=== PATIENT | male | born 1955 | race Caucasian/White ===

== ENCOUNTER 2021-10-21 13:05 | Inpatient (IN) | payer OTHER, SELFPAY ==
--- NOTE | ~2021-10-21 | CT_ITS ---
EXAMINATION: CT ANGIOGRAM HEAD CT ANGIOGRAM NECK CLINICAL INFORMATION: Reason for Exam bilat hand numbness, L arm weakness COMPARISON: None. TECHNIQUE: Initial noncontrast market maker imaging of the head and neck was performed. Noncontrast head CT was also performed. Test bolus sequences followed by intravenous administration 70 mL of Omnipaque 350. Helical imaging was performed in the axial plane from the aortic arch to the skull vertex. Delayed postcontrast imaging of the head was also performed. The data was processed at the nuclear medicine chief technologist's workstation for generation of MIP sequences. Angled MIPs and volume rendered reformatted images were also generated at an offline 3D workstation. Stenoses are assessed in accordance with NASCET criteria unless otherwise indicated. DLP: 2420 mGy-cm This CT examination was performed using dose optimization techniques as appropriate, variously including the following: *Automated exposure control. *Adjustment of mA and/or kV according to patient size (this includes techniques or standardized protocols for targeted exams where dose is matched to indication/reason for exam; i.e. extremities or head). *Use of iterative reconstruction technique. FINDINGS: CT Head: There is no evidence of acute intracranial hemorrhage or edematous territorial infarction. A few foci of hypoattenuation in the periventricular and deep white matter are consistent with mild microangiopathy. Roy-white matter differentiation is preserved. Slightly asymmetric caliber of the lateral ventricles, likely on a congenital basis. No evidence for obstructive hydrocephalus. No abnormal mass effect or midline shift. No extra-axial fluid collections. No pathologic intra-axial enhancement or regional oligemia. No acute soft tissue or osseous abnormalities. The mastoid air cells and paranasal sinuses are clear. Anterior frontal scalp lipoma. CT Neck: The thyroid gland and remaining cervical soft tissues are within normal limits. Multilevel moderate to advanced cervical spondylosis is incompletely evaluated by CT. Disc osteophyte complex at C5-C6 results in at least moderate spinal canal stenosis. CT Upper Chest: The visualized lung apices and upper mediastinum are within normal limits. Neck CTA: Aortic Arch: Normal contour and caliber. Classic 3 vessel branching pattern of the aortic arch. Great Vessel Origins: No significant stenosis of the branch origins. Evaluation of the proximal branches is somewhat limited due to streak artifact. Right Common Carotid Artery: No focal stenosis or occlusion. Cervical Right Internal Carotid Artery: Mild calcific atherosclerotic disease of the carotid bulb and proximal internal carotid artery without flow-limiting stenosis. Left Common Carotid Artery: No focal stenosis or occlusion. Cervical Left Internal Carotid Artery: Mild calcific atherosclerotic disease of the carotid bulb and proximal internal carotid artery without flow-limiting stenosis. Cervical Right Vertebral Artery: No focal stenosis or occlusion. Cervical Left Vertebral Artery: Slightly dominant. The vessel origin is not well visualized due to streak artifact. No focal stenosis or occlusion. Brain CTA: Intracranial Internal Carotid Arteries: Calcific atherosclerotic disease of the intracranial internal carotid arteries without occlusion or flow-limiting stenosis. Right Anterior Cerebral Artery: Normal A1 segment. Normal opacification of the distal NATI segments. Left Anterior Cerebral Artery: Normal A1 segment. Normal opacification of the distal NATI segments. Anterior Communicating Artery: Normal. Right Middle Cerebral Artery: Normal M1 segment of the MCA without focal stenosis or occlusion. Normal arborization of the distal segments. Left Middle Cerebral Artery: Normal M1 segment of the MCA without focal stenosis or occlusion. Normal arborization of the distal segments. Right Vertebral Artery: Normal V4 segment. Left Vertebral Artery: Normal V4 segment. Basilar Artery: Normal without focal stenosis or occlusion. Normal appearance of the proximal superior cerebellar arteries. Right Posterior Cerebral Artery: Normal P1 segment. Normal opacification of the distal HEREDITARY CANCER PROGRAM COORDINATOR segments. Left Posterior Cerebral Artery: Normal P1 segment. Normal opacification of the distal HEREDITARY [employer]CER PROGRAM COORDINATOR segments. Normal opacification of the superior sagittal, straight, transverse, and sigmoid sinuses. CT/CT angio head neck IMPRESSION: 1. No acute intracranial abnormality including hemorrhage, mass effect, hydrocephalus, or acute territorial edematous infarction. 2. No arterial high grade stenosis or large vessel occlusion in the head or neck.
--- NOTE | ~2021-10-21 | MR_ITS ---
MRI OF THE BRAIN WITHOUT IV CONTRAST MRI OF THE CERVICAL SPINE WITHOUT IV CONTRAST INDICATION: Paresthesias. COMPARISON: None available. TECHNIQUE: Multiplanar multisequence MR imaging of the brain and cervical spine obtained without IV contrast. FINDINGS: BRAIN MRI: There is no hydrocephalus, extra-axial surface collection, or herniation. Mild to moderate T2 signal changes within the supratentorial white matter, possibly chronic microangiopathy though nonspecific. The sequelae of demyelinating disease could have a similar appearance. The major flow voids at the skull base are preserved. There is no acute infarct on diffusion-weighted imaging. There is no intracranial hemorrhage on the gradient recalled echo acquisition. The midline structures are normal. The cerebellar tonsils are normally positioned. The cerebellum and brainstem are normal. The craniocervical junction is normal. Osseous marrow signal intensity is homogenous. There is a simple appearing 3 cm anterior frontal scalp lipoma. CERVICAL SPINE MRI: Straightening of the cervical lordosis. Vertebral body heights are maintained. Moderate disc volume loss at C3-C4 and C5-C6. There is no bone marrow edema. There are no acute fractures. Cervical arterial flow voids are maintained. There are no significant extraspinal soft tissue findings. There are no cord signal changes. C2-C3: Disc osteophyte and ligamentum flavum thickening result in mild central canal stenosis. Advanced uncovertebral joint hypertrophy and hypertrophic facet arthropathy result in severe left and moderate right foraminal stenosis. C3-C4: Disc osteophyte and ligamentum flavum thickening result in flattening of the cervical cord and moderate central canal stenosis. Advanced uncovertebral joint hypertrophy and hypertrophic facet arthropathy result in severe bilateral foraminal stenosis. C4-C5: Disc osteophyte and ligamentum flavum thickening result in severe central canal stenosis and mass effect on the cord. Advanced uncovertebral joint hypertrophy and hypertrophic facet arthropathy result in severe bilateral foraminal stenosis. C5-C6: Retrosubluxation. Disc osteophyte and ligamentum flavum thickening result in severe central canal stenosis and mass effect on the cord. Advanced uncovertebral joint hypertrophy and hypertrophic facet arthropathy result in severe bilateral foraminal stenosis. C6-C7: Shallow central disc protrusion mildly narrows the central canal. Advanced uncovertebral joint hypertrophy and hypertrophic facet arthropathy result in severe left and moderate right foraminal stenosis. C7-T1: Posterior disc contour is normal. Disc osteophyte and facet arthropathy result in moderate to severe right and moderate left foraminal stenosis. MR/MR cervical spine wo con IMPRESSION: - No acute intracranial findings. Mild to moderate T2 signal changes within the supratentorial white matter, possibly chronic microangiopathy though nonspecific. The sequelae of demyelinating disease could have a similar appearance. There is a simple appearing 3 cm anterior frontal scalp lipoma. - Advanced cervical spondylosis. Advanced spondylitic changes result in severe central canal stenosis and mass effect on the cervical spinal cord at C4-C5 and C5-C6 as well as moderate central canal stenosis and more mild mass effect on the cervical spinal cord at C3-C4. No definite cord signal changes however assessment is limited by the degree of artifact. Advanced spondylitic changes result in severe multilevel foraminal stenosis throughout the cervical spine as discussed in detail above.
[2021-10-21 13:24] VITALS: BP 117/87; PULSE 68; RESP 18; TEMP 36.6; O2SAT 97; BMI 40.6
--- NOTE | 2021-10-21 14:17 | ED.GENADULT ---
HPI - General Adult General Chief complaint: General Medical Stated complaint: Arm numbness/Leg numbness Time Seen by Provider: 10/21/21 13:51 Source: patient Mode of arrival: ambulatory Limitations: no limitations PMFSH Social History Social History Advance Directives: Yes Advance Directives Information Provided: Yes Advance Directives on File: No Physical Exam ED Vital Signs: Vital Signs - 24 hr 10/21/21 13:24 Temperature 97.8 F Pulse Rate 68 Respiratory Rate 18 Blood Pressure 117/87 Pulse Oximetry 97 Oxygen Delivery Method Room Air BMI result Body Mass Index 40.6
--- NOTE | 2021-10-21 14:27 | ECG_ITS ---
Test Reason : NUMBNESS EXTREMITIES Blood Pressure : / mmHG Vent. Rate : 059 BPM Atrial Rate : 059 BPM P-R Int : 174 ms QRS Dur : 096 ms QT Int : 424 ms P-R-T Axes : 029 015 021 degrees QTc Int : 419 ms Sinus bradycardia with sinus arrhythmia Otherwise normal ECG No previous ECGs available Referred By: Paula Lyons Electronically Signed By:NOE SU
--- NOTE | 2021-10-21 14:28 | ED.GENADULT ---
HPI - General Adult General Chief complaint: General Medical Stated complaint: Arm numbness/Leg numbness Time Seen by Provider: 10/21/21 13:51 Source: patient Mode of arrival: ambulatory Limitations: no limitations History of Present Illness HPI narrative: Patient comes to the emergency room complaining of bilateral hand numbness, left arm weakness, and soreness, pain in lower extremities, multiple near falls and falls over last week. Patient states that approximately 2 weeks ago, patient was helping his daughter paint the ceiling, suddenly, his arms went numb. Patient states that 4 days later he went to an emergency room in [place], he was diagnosed with cervical radiculopathy. Patient was prescribed steroids. Patient states that he has been taking his medication but his symptoms are not improving. Patient states that if anything the weakness in the left hand got a bit worse Related Data Allergies Allergy/AdvReac Type Severity Reaction Status Date / Time No Known Allergies Allergy Verified 10/21/21 14:26 Review of Systems Review of Systems: Constitutional : No Weight loss, No Fever, No Chills, No Night Sweats, No Fatigue, No Malaise ENT/Mouth : No Hearing loss, No Ear Pain, No Nasal Congestion, No Sinus Pain, No Hoarseness, No sore throat, No Rhinorrhea, No Swallowing Difficulty Eyes: No Eye Pain, No Swelling, No Redness, No Foreign Body, No Discharge, No Vision Changes Cardiovascular : No Chest Pain, No SOB, No Dyspnea on Exertion, No Orthopnea, No Edema, No Palpitations Respiratory : No Cough, No Sputum, No Wheezing, No Smoke Exposure, No Dyspnea Gastrointestinal : No Nausea, No Vomiting, No Diarrhea, No Constipation, No abdominal Pain, No Hematochezia, No Melena Genitourinary : no irregular bleeding, No Dysuria, No Urinary Frequency, No Hematuria, No Urinary Incontinence, No Urgency, No Flank Pain, No Urinary Flow Changes, No Hesitancy Musculoskeletal : Complaining of weakness in the left arm, complaining of bilateral a weakness/soreness in both lower extremities, complaining of bilateral hand numbness, no tingling Skin : No Skin Lesions, No rash Neuro : No Weakness, no loss of consciousness, no Dizziness, No Headache Psych : No Anxiety/Panic, No Depression, No SI/HI/AH/VH, No Social Issues, Heme/Lymph: No Bruising, No Bleeding,No Lymphadenopathy Endocrine : No Polyuria, No Polydipsia, No Temperature Intolerance [facility] Social History Social History Advance Directives: Yes Advance Directives Information Provided: Yes Advance Directives on File: No Physical Exam ED Vital Signs: Vital Signs - 24 hr 10/21/21 13:24 10/21/21 17:00 Temperature 97.8 F Pulse Rate 68 61 Respiratory Rate 18 16 Blood Pressure 117/87 154/74 H Pulse Oximetry 97 96 Oxygen Delivery Method Room Air Room Air BMI result Body Mass Index 40.6 Const Other: Appearance: Alert. Oriented X3. No acute distress. Eyes: Pupils equal, round and reactive to light. ENT: Pharynx normal. Neck: Normal inspection. Neck supple. No lymph nodes noted. No crepitus CVS: Normal heart rate and rhythm. Pulses normal. Normal S1 and S2 Respiratory: No respiratory distress. Breath sounds normal. No Wheezing. No rales Abdomen: Soft and nontender. No rigidity. No distention. Skin: Skin warm and dry. Normal skin color. Normal skin turgor. Extremities: No lower extremity edema. In upper extremities, right arm strength 5/5, left arm 2/5. Patient has 4/5 strength bilaterally, states both of his legs are feeling soared Neuro: Oriented X 3. No motor deficit. No sensory deficit. Moving all extremities. No slurred speech. CN 2 through 12 grossly intact Psych: calm, cooperative, normal affect Course Course Course Narrative: Patient does not have any significant abnormalities in the blood work. Head CT and CTA pending. I discussed the patient with Dr. Bolton, patient being admitted. He will need an MRI in the morning Medical Decision Making Lab Data Result diagrams: 10/21/21 15:08 10/21/21 15:08 Labs: Lab Results 10/21/21 10/21/21 10/21/21 Range/Units 15:07 15:08 15:08 WBC 9.4 (4.8-10.8) X10*3/uL RBC 5.23 (4.60-5.80) X10*6/uL Hgb 16.3 (14.0-18.0) g/dl Hct 48.0 (42.0-52.0) % MCV 91.8 (80.0-98.0) fL MCH 31.2 (27.0-33.0) pg MCHC 34.0 (31.0-36.0) g/dl RDW 12.8 (11.0-16.0) % Plt Count 218 (160-400) X10*3/uL MPV 9.3 L (9.4-12.4) fL Immature Gran % (Auto) 0.6 H (0.0-0.4) % Neut % (Auto) 67.3 (45-73) % Lymph % (Auto) 19.5 L (20-40) % [place] % (Auto) 9.6 (2-11) % Eos % (Auto) 2.7 (0-4) % Baso % (Auto) 0.3 (0-2) % Lymph # (Auto) 1.8 (1.2-4.9) X10*3/uL [place] # (Auto) 0.9 (0.1-1.2) X10*3/uL Eos # (Auto) 0.3 (0.0-0.4) X10*3/uL Baso # (Auto) 0.0 (0.0-0.2) X10*3/uL Abs Immat Gran (auto) 0.06 H (0.00-0.03) X10*3/uL Absolute Neuts (auto) 6.3 (2.0-8.3) x10*3/uL Absolute Nucleated RBC 0.000 (0.0-0.012) X10*3/uL Nucleated RBC % (auto) 0.0 (0.0-0.2) /100WBC Sodium 139 (135-145) mmol/L Potassium 4.9 (3.3-5.1) mmol/L Chloride 105 (96-108) mmol/L Carbon Dioxide 25 (22-29) mmol/L Anion Gap 14 (12-20) BUN 20 H (9-16) mg/dL Creatinine 1.00 (0.5-1.4) mg/dL Estim Creat Clear Calc 102.3 Estimated GFR > 60 Random Glucose 95 (60-115) mg/dL Calcium 9.0 (8.4-10.2) mg/dL Total Bilirubin 0.7 (0.0-1.0) mg/dL Direct Bilirubin 0.3 (0.0-0.5) mg/dL AST 30 (5-37) U/L ALT 36 (0-40) U/L Alkaline Phosphatase 60 (39-117) U/L Total Protein 6.7 (6.5-8.0) g/dL Albumin 4.2 (3.5-5.0) g/dL COVID-19 ([facility]) Negative (Negative) COVID-19 Clin Com See Note Discharge Plan Discharge Clinical Impression: Arm weakness Patient Disposition: Admitted As Inpatient
[2021-10-21 15:13] LABS: MANUAL DIFF FLAG NO
[2021-10-21 15:14] LABS: Basophils Percent Auto 0.3 % (0-2); Eosinophils Absolute Auto 0.3 X10*3/uL (0.0-0.4); Eosinophils Percent Auto 2.7 % (0-4); Hemoglobin 16.3 g/dl (14.0-18.0); Imm Gran Abs Auto 0.06 X10*3/uL (0.00-0.03); Imm Gran Pct Auto 0.6 % (0.0-0.4); Lymphocytes Absolute Auto 1.8 X10*3/uL (1.2-4.9); Lymphocytes Percent Auto 19.5 % (20-40); Mean Corpuscular Hemoglobin 31.2 pg (27.0-33.0); Mean Corpuscular Volume 91.8 fL (80.0-98.0); Mean Platelet Volume 9.3 fL (9.4-12.4); Monocytes Absolute Auto 0.9 X10*3/uL (0.1-1.2); Monocytes Percent Auto 9.6 % (2-11); Neutrophils Absolute Auto 6.3 x10*3/uL (2.0-8.3); Neutrophils Percent Auto 67.3 % (45-73); Platelet Count 218 X10*3/uL (160-400); Red Blood Count 5.23 X10*6/uL (4.60-5.80); Red Cell Distribution Width 12.8 % (11.0-16.0); White Blood Count 9.4 X10*3/uL (4.8-10.8)
[2021-10-21 15:29] LABS: COVID-19 Test Negative (Negative); IDNOW Serial# 55D5AD1C
[2021-10-21 15:36] LABS: Alanine Aminotransferase 36 U/L (0-40); Albumin Level 4.2 g/dL (3.5-5.0); Alkaline Phosphatase 60 U/L (39-117); Anion Gap 14 (12-20); Aspartate Amino Transferase 30 U/L (5-37); Bilirubin Direct 0.3 mg/dL (0.0-0.5); Bilirubin Total 0.7 mg/dL (0.0-1.0); Blood Urea Nitrogen 20 mg/dL (9-16); Carbon Dioxide 25 mmol/L (22-29); Chloride 105 mmol/L (96-108); Creatinine Clr Calc Pharmacy 102.3; Estimated Glomerular Filt Rate > 60; Glucose Random 95 mg/dL (60-115); Potassium 4.9 mmol/L (3.3-5.1); Sodium 139 mmol/L (135-145); Total Protein 6.7 g/dL (6.5-8.0)
[2021-10-21] MEDS: iohexoL 350 MG/ML 100 ML INFUS..BTL IV (16:57)
[2021-10-21 17:00] VITALS: BP 154/74; PULSE 61; RESP 16; O2SAT 96
--- NOTE | 2021-10-21 17:34 | PHA.MEDREC ---
med rec complete, patient does not take any medications Pharmacy Consult ? Medication Reconciliation Pharmacy has completed the medication reconciliation.
--- NOTE | 2021-10-21 17:42 | P.HPHOSP_ITS ---
History of Present Illness Date of Service: 10/21/21 Chief Complaint: arm numbness Patient comes to the emergency room complaining of bilateral hand numbness, left arm weakness, and soreness, pain in lower extremities, multiple near falls and falls over last week.? Patient states that approximately 2 weeks ago, patient was helping his daughter paint the ceiling, suddenly, his arms went numb.? Patient states that 4 days later he went to an emergency room in [place], he was diagnosed with cervical radiculopathy.? Patient was prescribed steroids.? Patient states that he has been taking his medication but his symptoms are not improving.? Patient states that if anything the weakness in the left hand got a bit worse. Review of Systems Review of Systems: denies chest pain Denies shortness of breath Denies nausea vomiting diarrhea Denies fever chills PMFSH Social History Advance Directives: Yes Advance Directives Information Provided: Yes Advance Directives on File: No Meds Allergies Allergy/AdvReac Type Severity Reaction Status Date / Time No Known Allergies Allergy Verified 10/21/21 14:26 Active Medications: Current Medications Acetaminophen (Acetaminophen 325 Mg Tablet) 650 mg PO Q6H PRN PRN Reason: Pain, Mild (Pain Scale 1-3) Enoxaparin Sodium (Enoxaparin Sodium 40 Mg/0.4 Ml Syringe) 40 mg SUBCUT Q24H [facility] Melatonin (Melatonin 3 Mg Tablet) 3 mg PO BEDTIME PRN PRN Reason: Insomnia Methylprednisolone Sodium Succinate (Methylprednisolone Sod Succ 125 Mg/2 Ml Vial) 125 mg IVPUSH ONCE ONE Stop: 10/21/21 17:42 Ondansetron HCl (Ondansetron Hcl 4 Mg/2 Ml Vial) 4 mg IVPUSH Q8H PRN PRN Reason: Nausea and Vomiting Pharmacy Consult (Consult Rx Perform Med Rec) 1 each MISCELLANE ONCE PRN PRN Reason: Consult order Sodium Chloride (0.9 % Sodium Chloride Flush 3 Ml Syringe) 3 ml IVFLUSH QSHIFT [facility] Home Medications Medication Instructions Recorded Confirmed Last Taken Type No Known Home Meds 10/21/21 10/21/21 Unknown History Physical Exam Vital Signs and Narrative: Vital Signs: Last Vital Signs Temp 97.8 F 10/21/21 13:24 Pulse 61 10/21/21 17:00 Resp 16 10/21/21 17:00 BP 154/74 H 10/21/21 17:00 Pulse Ox 96 10/21/21 17:00 O2 Del Method 10/21/21 17:00 BMI result Body Mass Index 40.6 Const: Other: no acute distress lying comfortably in bed Neck: Other: no JVD/bruit Resp: Other: clear to auscultation bilaterally no rales rhonchi or wheezes Cardio: Other: no S4; positive S1-S2; no S3 murmurs rubs or gallops GI: Other: soft nontender nondistended wit Extrem: Other: cranial nerves 2-12 grossly intact as tested. motor is 5/5 right upper extremity; 4-5 left upper extremity. Lower extremities bilaterally 5/5. Sensation is decreased to pinprick right upper extremity; decreased right lower extremity. Results Labs CBC and Chem 7: 10/21/21 15:08 10/21/21 15:08 Labs: Laboratory Results - last 24 hr 10/21/21 10/21/21 10/21/21 15:07 15:08 15:08 MCV 91.8 MCH 31.2 MCHC 34.0 RDW 12.8 Plt Count 218 MPV 9.3 L Immature Gran % (Auto) 0.6 H Neut % (Auto) 67.3 Lymph % (Auto) 19.5 L [place] % (Auto) 9.6 Eos % (Auto) 2.7 Baso % (Auto) 0.3 Lymph # (Auto) 1.8 [place] # (Auto) 0.9 Eos # (Auto) 0.3 Baso # (Auto) 0.0 Abs Immat Gran (auto) 0.06 H Absolute Neuts (auto) 6.3 Absolute Nucleated RBC 0.000 Nucleated RBC % (auto) 0.0 Anion Gap 14 Estim Creat Clear Calc 102.3 Estimated GFR > 60 Random Glucose 95 Calcium 9.0 Total Bilirubin 0.7 Direct Bilirubin 0.3 AST 30 ALT 36 Alkaline Phosphatase 60 Total Protein 6.7 Albumin 4.2 COVID-19 ([facility]) Negative COVID-19 Clin Com See Note Imaging Radiologist's Impressions: Impressions Head/Neck CTA 10/21/21 16:58 IMPRESSION: 1. No acute intracranial abnormality including hemorrhage, mass effect, hydrocephalus, or acute territorial edematous infarction. 2. No arterial high grade stenosis or large vessel occlusion in the head or neck. Assessment and Plan (1) Paresthesia of upper extremity: Status: Acute Plan 66-year-old male with essentially no past medical history presents with complaints of bilateral hand and arm numbness left greater than right along with some subjective right leg weakness. States he was doing excessie work over his head prior to this starting. Seen in ER [place] no imaging was done was given at Decadron taper with no affect. states symptoms have not improved if anything slightly worse. workup in emergency room including CTA of the head and neck failed to demonstrate any acute pathology 1.Bilateral arm parasthesias(left arm weakness) - MRI of brain in a.m. given left arm weakness - 1 dose of methylprednisolone this evening - observe on telemetry - Neuro consult in a.m. full code Pancho will require at least 2 midnights going forward for IV steroids and workup of his presenting symptoms. This cannot be achieved in a less acute setting Quality Stroke Does the patient have a stroke diagnosis?: No VTE Prior VTE?: No VTE Risk Level:: Medical - moderate - high VTE Device Contraindication: Treatment Not Indicated VTE Drug Contraindication: N/A - Med Ordered
[2021-10-21 17:59] VITALS: BP 151/82; PULSE 67; RESP 12; TEMP 36.5; O2SAT 96
[2021-10-21] MEDS: methylPREDNISolone Sod Succ 125 MG/2 ML VIAL IVPUSH (18:01)
[2021-10-21 19:21] VITALS: BP 153/89; PULSE 69; RESP 19; TEMP 36.6; O2SAT 98
[2021-10-21] MEDS: Acetaminophen 325 MG TABLET 650 MG PO (20:58)
[2021-10-21] MEDS: Enoxaparin Sodium 40 MG/0.4 ML SYRINGE SUBCUT (20:58)
[2021-10-21] MEDS: 0.9 % Sodium Chloride Flush 3 ML SYRINGE IVFLUSH (20:59)
[2021-10-21 23:34] VITALS: BP 130/62; PULSE 67; RESP 16; TEMP 36.7; O2SAT 93
[2021-10-22 03:43] VITALS: BP 136/80; PULSE 80; RESP 16; TEMP 37.3; O2SAT 93
[2021-10-22 07:05] LABS: Basophils Percent Auto 0.1 % (0-2); Hematocrit 49.8 % (42.0-52.0); Hemoglobin 16.9 g/dl (14.0-18.0); Imm Gran Abs Auto 0.09 X10*3/uL (0.00-0.03); Imm Gran Pct Auto 0.8 % (0.0-0.4); Lymphocytes Absolute Auto 0.5 X10*3/uL (1.2-4.9); Lymphocytes Percent Auto 4.4 % (20-40); MANUAL DIFF FLAG SCAN; Mean Corpuscular HGB Conc 33.9 g/dl (31.0-36.0); Mean Corpuscular Hemoglobin 30.7 pg (27.0-33.0); Mean Corpuscular Volume 90.5 fL (80.0-98.0); Mean Platelet Volume 9.5 fL (9.4-12.4); Monocytes Absolute Auto 0.3 X10*3/uL (0.1-1.2); Monocytes Percent Auto 2.5 % (2-11); Neutrophils Absolute Auto 10.9 x10*3/uL (2.0-8.3); Neutrophils Percent Auto 92.2 % (45-73); Platelet Count 234 X10*3/uL (160-400); Red Cell Distribution Width 12.4 % (11.0-16.0); SCAN SMEAR FLAG 1; White Blood Count 11.8 X10*3/uL (4.8-10.8)
[2021-10-22 07:17] LABS: Alanine Aminotransferase 33 U/L (0-40); Alkaline Phosphatase 60 U/L (39-117); Anion Gap 15 (12-20); Aspartate Amino Transferase 24 U/L (5-37); Bilirubin Total 0.6 mg/dL (0.0-1.0); Blood Urea Nitrogen 20 mg/dL (9-16); C Reactive Protein 0.47 mg/dL (< or = 0.50); Calcium 8.8 mg/dL (8.4-10.2); Carbon Dioxide 21 mmol/L (22-29); Chloride 107 mmol/L (96-108); Creatinine Clr Calc Pharmacy 120.4; Estimated Glomerular Filt Rate > 60; Glucose Fasting 126 mg/dL (60-99); Potassium 4.5 mmol/L (3.3-5.1); Sodium 138 mmol/L (135-145); Total Protein 6.4 g/dL (6.5-8.0)
[2021-10-22] MEDS: 0.9 % Sodium Chloride Flush 3 ML SYRINGE IVFLUSH ×3 (07:27→20:24)
[2021-10-22 07:33] LABS: Erythrocyte Sedimentation Rate 2 MM/HR (0-15)
[2021-10-22 07:37] LABS: SLIDE REVIEW VERIFIED
[2021-10-22 07:59] VITALS: BP 141/75; PULSE 66; RESP 20; TEMP 36.9; O2SAT 95
--- NOTE | 2021-10-22 09:12 | MHC.CM.PN ---
CM met with Patient at bedside and addressed AMADOR with him, providing him with the original and placing a copy on the chart. Patient lives in an apartment with his Son/HCP/Khalif and Khalif's Girlfriend and he required no services nor DME SENIOR PROJECT CONTROLS SPECIALIST. Home/no services is the goal and CM has initiated and will follow for dc planning. PCP is Dr. Paulo Dorado and Patient has received no Covid vax.
[2021-10-22 11:27] VITALS: BP 139/65; PULSE 66; RESP 20; TEMP 36.3; O2SAT 94
--- NOTE | 2021-10-22 11:56 | P.CNNE_ITS ---
History of Present Illness Data of Consult Service Date: 10/22/21 Primary Care Provider: Paulo Dorado PA-C HPI Reason for consult: Bilateral hand numbness, L>R 66 yr old [place] [facility] [place] complaints of bilateral hand numbness, left arm weakness, and soreness, numbness in RLE, multiple near falls and falls over last week. 2 weeks ago, patient was helping his daughter paint the ceiling, suddenly, his arms went numb.? Patient states that 4 days later he went to an emergency room in [place], he was diagnosed with cervical radiculopathy.? Patient was prescribed steroids.? Patient states that he has been taking his medication but his symptoms are not improving.? Patient states that the left hand is weak Review of Systems Review of Systems: denies chest pain Denies shortness of breath Denies nausea vomiting diarrhea Denies fever chills PMFSH Social History Social History Patient Tobacco Use Status: Former Tobacco user Years Smoked: 32 Advance Directives Date on File: 10/21/21 service: No Current occupational status: retired [employer] Allergies Allergy/AdvReac Type Severity Reaction Status Date / Time No Known Allergies Allergy Verified 10/21/21 14:26 Active Medications: Current Medications Acetaminophen (Acetaminophen 325 Mg Tablet) 650 mg PO Q6H PRN PRN Reason: Pain, Mild (Pain Scale 1-3) Last Admin: 10/21/21 20:58 Dose: 650 mg Enoxaparin Sodium (Enoxaparin Sodium 40 Mg/0.4 Ml Syringe) 40 mg SUBCUT Q24H [facility] Last Admin: 10/21/21 20:58 Dose: 40 mg Melatonin (Melatonin 3 Mg Tablet) 3 mg PO BEDTIME PRN PRN Reason: Insomnia Ondansetron HCl (Ondansetron Hcl 4 Mg/2 Ml Vial) 4 mg IVPUSH Q8H PRN PRN Reason: Nausea and Vomiting Pharmacy Consult (Consult Rx Perform Med Rec) 1 each MISCELLANE ONCE PRN PRN Reason: Consult order Sodium Chloride (0.9 % Sodium Chloride Flush 3 Ml Syringe) 3 ml IVFLUSH QSHIFT [facility] Last Admin: 10/22/21 07:27 Dose: 3 ml Home Medications Medication Instructions Recorded Confirmed Last Taken Type No Known Home Meds 10/21/21 10/21/21 Unknown History Physical Exam Vital Signs: Vital Signs: Last Vital Signs Temp 97.4 F 10/22/21 11:27 Pulse 66 10/22/21 11:27 Resp 20 10/22/21 11:27 BP 139/65 10/22/21 11:27 Pulse Ox 94 10/22/21 11:27 O2 Del Method 10/22/21 11:27 BMI result Body Mass Index 40.6 Const: Other: no acute distress lying comfortably in bed Neck: Other: no JVD/bruit Resp: Other: clear to auscultation bilaterally no rales rhonchi or wheezes Cardio: Other: no S4; positive S1-S2; no S3 murmurs rubs or gallops GI: Other: soft nontender nondistended wit Neuro: Other: Weakness in left church worker 5 minus/5 for left triceps 4/5 left deltoid 5 minus/5. Reduced reflexes. Equivocal plantar extensor responses bilaterally Extrem: Other: cranial nerves 2-12 grossly intact as tested. motor is 5/5 right upper extremity; 4-5 left upper extremity. Lower extremities bilaterally 5/5. Sensation is decreased to pinprick right upper extremity; decreased right lower extremity. Results Labs CBC & Chem 7: 10/22/21 06:21 10/22/21 06:21 Labs: Short CBC 10/21/21 10/22/21 Range/Units 15:08 06:21 WBC 9.4 11.8 H (4.8-10.8) X10*3/uL Hgb 16.3 16.9 (14.0-18.0) g/dl Hct 48.0 49.8 (42.0-52.0) % Plt Count 218 234 (160-400) X10*3/uL BMP 10/21/21 10/22/21 15:08 06:21 Sodium 139 138 Potassium 4.9 4.5 Chloride 105 107 Carbon Dioxide 25 21 L BUN 20 H 20 H Creatinine 1.00 0.85 Calcium 9.0 8.8 Liver Function 10/21/21 10/22/21 Range/Units 15:08 06:21 Total Bilirubin 0.7 0.6 (0.0-1.0) mg/dL Direct Bilirubin 0.3 (0.0-0.5) mg/dL AST 30 24 (5-37) U/L ALT 36 33 (0-40) U/L Alkaline Phosphatase 60 60 (39-117) U/L Albumin 4.2 4.0 (3.5-5.0) g/dL Assessment and Plan (1) Paresthesia of upper extremity: Status: Acute (2) Cervical radiculopathy at C6: Status: Acute MRI cervical spine Prednisone 60mg a day x5 days, 40 mg x5 d and 20mg x5 days. Soft cervical collar with fastener in front. (3) Cervical myelopathy: Status: Acute Plan 66-year-old male with essentially no past medical history presents with complaints of bilateral hand and arm numbness left greater than right along with some subjective right leg weakness. States he was doing excessie work over his head prior to this starting. Seen in ER [place] no imaging was done was given at Decadron taper with no affect. states symptoms have not improved if anything slightly worse. workup in emergency room including CTA of the head and neck failed to demonstrate any acute pathology 1.Bilateral arm parasthesias(left arm weakness) - MRI of brain in a.m. given left arm weakness - 1 dose of methylprednisolone this evening - observe on telemetry - Neuro consult in a.m. full code Pancho will require at least 2 midnights going forward for IV steroids and workup of his presenting symptoms. This cannot be achieved in a less acute setting Procedures Date of Service Date of Service: 10/22/21
[2021-10-22] MEDS: methylPREDNISolone Sod Succ 125 MG/2 ML VIAL 60 MG IVPUSH ×2 (15:15→20:23)
[2021-10-22 15:42] VITALS: BP 139/68; PULSE 89; RESP 19; TEMP 37.1; O2SAT 98
--- NOTE | 2021-10-22 16:07 | HO.PM.IMPN ---
Subjective Subjective Date of Service: 10/22/21 Interval History: notes improvement with steroid Review of Systems denies chest pain Denies shortness of breath Denies nausea vomiting diarrhea Denies fever chills Physical Exam Vital Signs: Vital Signs: Last Vital Signs Temp 98.7 F 10/22/21 15:42 Pulse 89 10/22/21 15:42 Resp 19 10/22/21 15:42 BP 139/68 10/22/21 15:42 Pulse Ox 98 10/22/21 15:42 O2 Del Method 10/22/21 15:42 BMI result Body Mass Index 40.6 Const: Other: no acute distress lying comfortably in bed Neck: Other: no JVD/bruit Resp: Other: clear to auscultation bilaterally no rales rhonchi or wheezes Cardio: Other: no S4; positive S1-S2; no S3 murmurs rubs or gallops GI: Other: soft nontender nondistended wit Extrem: Other: cranial nerves 2-12 grossly intact as tested. motor is 5/5 right upper extremity; 4-5 left upper extremity. Lower extremities bilaterally 5/5. Sensation is decreased to pinprick right upper extremity; decreased right lower extremity. Objective Data Active Medications Acetaminophen (Acetaminophen 325 Mg Tablet) 650 mg PO Q6H PRN PRN Reason: Pain, Mild (Pain Scale 1-3) Last Admin: 10/21/21 20:58 Dose: 650 mg Documented By: RADHA Enoxaparin Sodium (Enoxaparin Sodium 40 Mg/0.4 Ml Syringe) 40 mg SUBCUT Q24H [facility] Last Admin: 10/21/21 20:58 Dose: 40 mg Documented By: RADHA Melatonin (Melatonin 3 Mg Tablet) 3 mg PO BEDTIME PRN PRN Reason: Insomnia Methylprednisolone Sodium Succinate (Methylprednisolone Sod Succ 125 Mg/2 Ml Vial) 60 mg IVPUSH Q6H [facility] Last Admin: 10/22/21 15:15 Dose: 60 mg Documented By: CATHERINE Ondansetron HCl (Ondansetron Hcl 4 Mg/2 Ml Vial) 4 mg IVPUSH Q8H PRN PRN Reason: Nausea and Vomiting Pharmacy Consult (Consult Rx Perform Med Rec) 1 each MISCELLANE ONCE PRN PRN Reason: Consult order Sodium Chloride (0.9 % Sodium Chloride Flush 3 Ml Syringe) 3 ml IVFLUSH QSHIFT [facility] Last Admin: 10/22/21 07:27 Dose: 3 ml Documented By: CATHERINE Labs CBC & Chem 7: 10/22/21 06:21 10/22/21 06:21 Labs: Laboratory Results - last 24 hr 10/22/21 10/22/21 10/22/21 06:21 06:21 06:21 MCV 90.5 MCH 30.7 MCHC 33.9 RDW 12.4 Plt Count 234 MPV 9.5 Immature Gran % (Auto) 0.8 H Neut % (Auto) 92.2 H Lymph % (Auto) 4.4 L [place] % (Auto) 2.5 Eos % (Auto) 0.0 Baso % (Auto) 0.1 Lymph # (Auto) 0.5 L [place] # (Auto) 0.3 Eos # (Auto) 0.0 Baso # (Auto) 0.0 Abs Immat Gran (auto) 0.09 H Absolute Neuts (auto) 10.9 H Absolute Nucleated RBC 0.000 Nucleated RBC % (auto) 0.0 Smear Tech's Comments VERIFIED ESR 2 Anion Gap 15 Estim Creat Clear Calc 120.4 Estimated GFR > 60 Fasting Glucose 126 H Calcium 8.8 Total Bilirubin 0.6 AST 24 ALT 33 Alkaline Phosphatase 60 C-Reactive Protein 0.47 Total Protein 6.4 L Albumin 4.0 Assessment and Plan (1) Cervical radiculopathy at C6: Status: Acute (2) Paresthesia of upper extremity: Status: Acute Plan 66-year-old male with essentially no past medical history presents with complaints of bilateral hand and arm numbness left greater than right along with some subjective right leg weakness. States he was doing excessie work over his head prior to this starting. Seen in ER [place] no imaging was done was given at Decadron taper with no affect. states symptoms have not improved if anything slightly worse. workup in emergency room including CTA of the head and neck failed to demonstrate any acute pathology 1.Bilateral arm parasthesias(left arm weakness) - Multiple cervical spine changes on MRI. Brain negative - continue IV steroids times 24 hours and reassess full code Lovenox requires ongoing hospitalization for IV steroids to treat significant paresthesias and weakne Quality Stroke Does the patient have a stroke diagnosis?: No VTE Prior VTE?: No VTE Risk Level:: Medical - moderate - high VTE Device Contraindication: Treatment Not Indicated VTE Drug Contraindication: N/A - Med Ordered
[2021-10-22] MEDS: Acetaminophen 325 MG TABLET 650 MG PO (18:42)
--- NOTE | 2021-10-22 18:48 | PC.NURSE ---
Patient had a 4 beat run of vtach, asymptomatic
[2021-10-22 20:00] VITALS: BP 170/77; PULSE 69; RESP 19; TEMP 37.1; O2SAT 98
[2021-10-22] MEDS: Enoxaparin Sodium 40 MG/0.4 ML SYRINGE SUBCUT (20:24)
[2021-10-22 23:20] VITALS: BP 144/67; PULSE 67; RESP 17; TEMP 36.3; O2SAT 90
[2021-10-23 03:17] VITALS: BP 137/77; PULSE 70; RESP 20; TEMP 36.4; O2SAT 95
[2021-10-23] MEDS: methylPREDNISolone Sod Succ 125 MG/2 ML VIAL 60 MG IVPUSH ×3 (03:32→12:58)
[2021-10-23 07:39] VITALS: BP 152/79; PULSE 59; RESP 16; TEMP 36.6; O2SAT 96
[2021-10-23] MEDS: 0.9 % Sodium Chloride Flush 3 ML SYRINGE IVFLUSH (09:05)
--- NOTE | 2021-10-23 10:01 | P.CDIC_ITS ---
CDI Concurrent Query Documentation Clarification: PHYSICIAN'S DOCUMENTATION REQUEST Date of Query: 10/23/21 1001 Patient Name: Romie Roy Admit Date: 10/21/21 Dear Doctor, A review of the medical record indicates additional documentation may be needed. Please review below and update the documentation accordingly. Clinical Indicators: Is there a diagnosis that correlates with these lab findings below: Risk Factors/Clinical Indicators/Treatments BMI: 40.7 Height: 6ft Weight: 136.078 If possible, please provide an associated diagnosis related to the abnormal BMI, such as: For a BMI >= 40: * Severe or Morbid Obesity * Obesity * Due to excess calories * Drug induced * Due to other cause Or: * BMI is not significant * Other (please specify) * Unable to determine Use of terms such as suspected, likely, concern for, or probable (associated with a specific diagnosis that is being evaluated, monitored, or treated as if it exists) are acceptable and can be coded in the inpatient setting, when documented at the time of discharge. Thank you, Radha Frye MS, RN, CCRN Extension: [phone] Please use your independent medical judgment in providing your response. THIS QUERY IS PART OF THE PERMANENT MEDICAL RECORD Provider Response: Other Other Diagnosis: obesity due to excess calories
[2021-10-23 11:25] VITALS: BP 158/76; PULSE 58; RESP 20; TEMP 36.4; O2SAT 95
--- NOTE | 2021-10-23 12:28 | P.DS_ITS ---
DS: Providers Provider Date of Service: 10/23/21 Date of admission: 10/21/21 17:39 Date of discharge: 10/23/21 Primary care physician: Paulo Dorado PA-C Consults: 10/22/21 07:55 Consult to Neurology Stat Consulting Provider: [facility] Reason for consultation: Arm parasthesias Has provider been notified: No DS: Diagnosis Discharge Diagnosis (1) Cervical radiculopathy at C6: Status: Acute (2) Paresthesia of upper extremity: Status: Acute DS: Summary Hospital Course Hospital Course: Patient comes to the emergency room complaining of bilateral hand numbness, left arm weakness, and soreness, pain in lower extremities, multiple near falls and falls over last week.? Patient states that approximately 2 weeks ago, patient was helping his daughter paint the ceiling, suddenly, his arms went numb.? Patient states that 4 days later he went to an emergency room in [place], he was diagnosed with cervical radiculopathy.? Patient was prescribed steroids.? Patient states that he has been taking his medication but his symptoms are not improving.? Patient states that if anything the weakness in the left hand got a bit worse. Hospital Couurse Admitted to general medical floor and started on IV methylprednisolone. Subsequently MRI of head neck were done which failed to demonstrate acute brain pathology. cervical spine did demonstrate severe central discuss canal stenosis at the level of C4-C5 and C5-C6. His symptoms markedly improved on IV methylprednisolone. At this point he declines any surgical consult. He is advised at limiting his activities than not working over his head if possible. He has appoint with his PCP and can follow-up at that time. He is instructed to return to the hospital if symptoms worsen or resume after steroids. He will be discharged on a Decadron taper Time Spent with Patient Time attestation: Total time spent providing and/or coordinating discharge services: Discharge coordination time: Greater than 30 minutes Quality: Safe Use of Opioids Does Pt have an Active Cancer Diagnosis on the Problem List?: No Quality: Stroke Does the patient have a stroke diagnosis?: No Physical Exam Vital Signs: Vital Signs: Last Vital Signs Temp 97.5 F 10/23/21 11:25 Pulse 58 10/23/21 11:25 Resp 20 10/23/21 11:25 BP 158/76 H 10/23/21 11:25 Pulse Ox 95 10/23/21 11:25 O2 Del Method 10/23/21 11:25 BMI result Body Mass Index 40.6 Const: Other: no acute distress lying comfortably in bed Neck: Other: no JVD/bruit Resp: Other: clear to auscultation bilaterally no rales rhonchi or wheezes Cardio: Other: no S4; positive S1-S2; no S3 murmurs rubs or gallops GI: Other: soft nontender nondistended wit Extrem: Other: cranial nerves 2-12 grossly intact as tested. motor is 5/5 right upper extremity; 4-5 left upper extremity. Lower extremities bilaterally 5/5. Sensation is decreased to pinprick right upper extremity; decreased right lower extremity. Discharge Plan Discharge Patient Disposition: Home, Self-Care Discharge Diagnosis: Cervical radiculopathy Referrals: Paulo Dorado PA-C [Primary Care Provider] - 1 Week Discharge Medications: New dexamethasone [Decadron] 4 mg tablet See Rx Instructions .Route .COMPLEX Qty: 18 0RF Rx Instructions: 4 mg orally; 1 p.o. t.i.d. x3 days, 1 p.o. b.i.d. x3 days, 1 p.o. daily x3 days Discharge Orders: Discharge Order (Routine); Ordered 10/23/21 Ordered By: Ulices Bolton Diet: Advance to usual diet Activity on Discharge: As tolerated Stand Alone Forms: Patient Portal Discharge page Care Plan Goals: Take Decadron as prescribed Health Concerns: avoid working over your head if at all possible Plan of Treatment: follow-up with Moshe Dorado as scheduled Assessment: see discharge summary
--- NOTE | 2021-10-23 12:29 | MHC.CM.PN ---
Patient has been medically cleared for dc to home today, self care.
== END 2021-10-23 13:19 | disposition home or self-care (01) | DRG 74 ==
LOC: HO.ED 17:27 → HO.EDOVER 17:49 → HO.IMC 18:50
PROVIDERS: Admitting Provider Hospitalist; Emergency Provider Emergency Medicine; PCP Physician Assistant; Visit Provider Hospitalist
DX: M54.12 Radiculopathy, cervical region (principal); Z68.41 Body mass index [BMI] 40.0-44.9, adult; Z20.822 Contact with and (suspected) exposure to COVID-19; Z87.891 Personal history of nicotine dependence; E66.9 Obesity, unspecified
CPT/HCPCS: 36415; 70496; 70498; 70551; 72141; 80048; 80053; 80076; 85025; 85652; 86140; 87635; 93005; 99219; 99285; J1650; J2930; Q9967

== ENCOUNTER 2021-11-03 11:57 | Emergency (ER) | payer OTHER, MEDICAID, SELFPAY ==
[2021-11-03 12:05] VITALS: BP 151/71; PULSE 69; RESP 18; TEMP 36.6; O2SAT 95; BMI 40.6
--- NOTE | 2021-11-03 12:10 | ECG_ITS ---
Test Reason : WEAKNESS FOR 1 WEEK Blood Pressure : / mmHG Vent. Rate : 070 BPM Atrial Rate : 070 BPM P-R Int : 174 ms QRS Dur : 096 ms QT Int : 370 ms P-R-T Axes : 013 002 024 degrees QTc Int : 399 ms Normal sinus rhythm Normal ECG When compared with ECG of 21-OCT-2021 16:20, Heart rate has increased Referred By: Generic ED Physician Electronically Signed By:NOE SU
[2021-11-03 12:23] LABS: MANUAL DIFF FLAG NO
[2021-11-03 12:28] LABS: Basophils Percent Auto 0.2 % (0-2); Eosinophils Absolute Auto 0.2 X10*3/uL (0.0-0.4); Eosinophils Percent Auto 1.7 % (0-4); Hematocrit 47.1 % (42.0-52.0); Hemoglobin 16.2 g/dl (14.0-18.0); Imm Gran Pct Auto 0.8 % (0.0-0.4); Lymphocytes Absolute Auto 1.5 X10*3/uL (1.2-4.9); Lymphocytes Percent Auto 11.9 % (20-40); Mean Corpuscular HGB Conc 34.4 g/dl (31.0-36.0); Mean Corpuscular Hemoglobin 31.3 pg (27.0-33.0); Mean Corpuscular Volume 90.9 fL (80.0-98.0); Mean Platelet Volume 9.3 fL (9.4-12.4); Monocytes Absolute Auto 1.1 X10*3/uL (0.1-1.2); Monocytes Percent Auto 8.5 % (2-11); Neutrophils Absolute Auto 9.5 x10*3/uL (2.0-8.3); Neutrophils Percent Auto 76.9 % (45-73); Red Blood Count 5.18 X10*6/uL (4.60-5.80); Red Cell Distribution Width 12.9 % (11.0-16.0); White Blood Count 12.3 X10*3/uL (4.8-10.8)
[2021-11-03 12:29] LABS: Platelet Count 163 X10*3/uL (160-400)
[2021-11-03 12:40] LABS: Alanine Aminotransferase 25 U/L (0-40); Albumin Level 3.6 g/dL (3.5-5.0); Alkaline Phosphatase 60 U/L (39-117); Anion Gap 14 (12-20); Aspartate Amino Transferase 16 U/L (5-37); Bilirubin Direct 0.5 mg/dL (0.0-0.5); Bilirubin Total 1.3 mg/dL (0.0-1.0); Blood Urea Nitrogen 16 mg/dL (9-16); Calcium 8.6 mg/dL (8.4-10.2); Carbon Dioxide 25 mmol/L (22-29); Chloride 103 mmol/L (96-108); Creatinine Clr Calc Pharmacy 107.7; Estimated Glomerular Filt Rate > 60; Glucose Random 104 mg/dL (60-115); Potassium 4.3 mmol/L (3.3-5.1); Sodium 138 mmol/L (135-145); Total Protein 5.9 g/dL (6.5-8.0)
[2021-11-03 12:48] LABS: Troponin-I High Sensitivity 5.2 ng/L (<3.5-35.0)
[2021-11-03 14:27] VITALS: BP 133/67; PULSE 65; RESP 18; TEMP 36.5; O2SAT 96
--- NOTE | 2021-11-03 17:02 | ED_ITS ---
HPI - General Adult General Chief complaint: General Medical Stated complaint: follow up on back pain Time Seen by Provider: 11/03/21 17:02 Source: patient Mode of arrival: ambulatory Limitations: no limitations History of Present Illness HPI narrative: 66-year-old male who presents emergency department for evaluation patient headache, facial rash, fatigue x3 days. Patient states that he has a pressure- like headache which came on gradually 3 days prior, the headache is been constant is located throughout his entire head. He states the pain is 6/10. He denied any associated fever, chills, nausea or vomiting he states that he has been very fatigued. He has also noticed a pimple like rash on his nose, face and the back of his head. Patient is concerned that he has an infection he states he has had similar symptoms in the past when he has had section. The patient was recently hospitalized on 10/21/2021 for bilateral hand numbness and left arm weakness. Patient's workup revealed a negative MRI of the brain on 10/22/2021 ( see impression below). Patient's MRI of his C-spine however did reveal significant arthritis of his neck with severe central canal stenosis of at C3-C4, C4-C5, C5-C6 with mass effect on the patient's spinal cord secondary to the stenosis. patient was started on high-dose IV Solu-Medrol and sent home on a Decadron taper. States that the left arm weakness has resolved but he continues to have numbness in both of his hands with good strength. In reviewing the records from the admission, the patient at that time did not want to pursue any surgical options. Date of Service: 10/22/21 MRI OF THE CERVICAL SPINE WITHOUT IV CONTRAST IMPRESSION: - Advanced cervical spondylosis. Advanced spondylitic changes result in severe central canal stenosis and mass effect on the cervical spinal cord at C4-C5 and C5-C6 as well as moderate central canal stenosis and more mild mass effect on the cervical spinal cord at C3-C4. No definite cord signal changes however assessment is limited by the degree of artifact. Advanced spondylitic changes result in severe multilevel foraminal stenosis throughout the cervical spine as discussed in detail above. 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 Past surgical history: None. Social history: He denies tobacco, alcohol and drug use. Social History Social History Patient Tobacco Use Status: Former Tobacco user Years Smoked: 32 Advance Directives: Yes Advance Directives on File: Yes Advance Directives Date on File: 10/21/21 service: No Current occupational status: retired Physical Exam ED Vital Signs: Vital Signs - 24 hr 11/03/21 12:05 11/03/21 14:27 Temperature 97.8 F 97.7 F Pulse Rate 69 65 Respiratory Rate 18 18 Blood Pressure 151/71 H 133/67 Pulse Oximetry 95 96 Oxygen Delivery Method Room Air Room Air BMI result Body Mass Index 40.6 Const General: cooperative and no acute distress Orientation/consciousness: oriented to person and oriented to place Limitations: no limitations HENGA Other: Patient has an erythematous rash to both his left and right side of his face with small vesicular lesions, he also has similar lesions bilaterally on his scalp. Head: Yes normal to inspection, Yes normocephalic and Yes atraumatic Ears: external ears normal General nose exam: Normal external nose present Mouth: Normal oral and palatal mucosa present Throat: Yes posterior oropharynx normal Eyes General: appearance normal, both eyes and all related structures Pupils: Equal, round and reactive pupils present Neck Neck: Yes normal visual inspection, Yes no lymphadenopathy, Yes trachea midline and Yes supple Chest Chest palpation & inspection: normal inspection of the chest and normal palpation of entire chest wall Resp Effort & Inspection: normal respiratory effort and able to speak in complete sentences Auscultation: clear to auscultation bilaterally Cardio Rate: regular rate Rhythm: regular rhythm Heart sounds: S1 normal heart sound present, S2 normal heart sound present and no murmurs GI Inspection: Yes normal to inspection Palpation (GI): Soft to palpation, nontender and no guarding Auscultation: normal bowel sounds General: Yes no CVA tenderness Back/Spine/Pelvis Back: no CVA tenderness Skin General skin exam: no rashes or lesions noted Neuro General: oriented to person and oriented to place Cranial nerves: Yes CN's II-XII intact bilaterally and Yes Equal, round and reactive pupils present Cognition (Neuro): normal cognition Motor exam (neuro): 5/5 motor strength present throughout Extrem General: Yes normal to inspection Psych Appearance: grossly normal Speech and movement: Normal speech and movement present Affect: normal affect Attitude: cooperative Thought process: Normal thought process present Thought content: Normal thought content present Course Course Course Narrative: 66-year-old male who presents emergency department for evaluation 3 days of headache which came on gradually and is a pressure-like sensation located throughout his entire head and a rash on his face. Patient was recently a hospitalized 10/21/2021 for left arm weakness bilateral hand numbness with a workup of the found severe arthritis of his cervical spine with severe spinal stenosis from see 3 to see 6 with mass effect on the patient's spinal cord, patient was treated with high-dose steroids and his left arm weakness improved but the numbness in both hands have persisted. The patient's facial rash is consistent with a cellulitis / staff for strep infection. He was started on Keflex 500 mg 3 times a day for 7 days. He was advised to take Tylenol and ibuprofen for pain. The patient will be referred to [facility] for his bilateral hand pain and severe spinal stenosis. Medical Decision Making Lab Data Result diagrams: 11/03/21 12:17 11/03/21 12:17 Labs: Lab Results 11/03/21 11/03/21 11/03/21 Range/Units 12:17 12:17 12:17 WBC 12.3 H (4.8-10.8) X10*3/uL RBC 5.18 (4.60-5.80) X10*6/uL Hgb 16.2 (14.0-18.0) g/dl Hct 47.1 (42.0-52.0) % MCV 90.9 (80.0-98.0) fL MCH 31.3 (27.0-33.0) pg MCHC 34.4 (31.0-36.0) g/dl RDW 12.9 (11.0-16.0) % Plt Count 163 D (160-400) X10*3/uL MPV 9.3 L (9.4-12.4) fL Immature Gran % (Auto) 0.8 H (0.0-0.4) % Neut % (Auto) 76.9 H (45-73) % Lymph % (Auto) 11.9 L (20-40) % [place] % (Auto) 8.5 (2-11) % Eos % (Auto) 1.7 (0-4) % Baso % (Auto) 0.2 (0-2) % Lymph # (Auto) 1.5 (1.2-4.9) X10*3/uL [place] # (Auto) 1.1 (0.1-1.2) X10*3/uL Eos # (Auto) 0.2 (0.0-0.4) X10*3/uL Baso # (Auto) 0.0 (0.0-0.2) X10*3/uL Abs Immat Gran (auto) 0.10 H (0.00-0.03) X10*3/uL Absolute Neuts (auto) 9.5 H (2.0-8.3) x10*3/uL Absolute Nucleated RBC 0.000 (0.0-0.012) X10*3/uL Nucleated RBC % (auto) 0.0 (0.0-0.2) /100WBC Sodium 138 (135-145) mmol/L Potassium 4.3 (3.3-5.1) mmol/L Chloride 103 (96-108) mmol/L Carbon Dioxide 25 (22-29) mmol/L Anion Gap 14 (12-20) BUN 16 (9-16) mg/dL Creatinine 0.95 (0.5-1.4) mg/dL Estim Creat Clear Calc 107.7 Estimated GFR > 60 Random Glucose 104 (60-115) mg/dL Calcium 8.6 (8.4-10.2) mg/dL Total Bilirubin 1.3 H (0.0-1.0) mg/dL Direct Bilirubin 0.5 (0.0-0.5) mg/dL AST 16 (5-37) U/L ALT 25 (0-40) U/L Alkaline Phosphatase 60 (39-117) U/L Troponin I High Sens 5.2 (<3.5-35.0) ng/L Total Protein 5.9 L (6.5-8.0) g/dL Albumin 3.6 (3.5-5.0) g/dL Discharge Plan Discharge Clinical Impression: Bacterial skin infection, Spinal stenosis Patient Disposition: Home, Self-Care Instructions: Cellulitis (ED) Additional Instructions: Your blood work today was unremarkable. You may have an infection of your skin based on the pimples that you have on your face therefore I am starting you on an antibiotic called Keflex (cephalexin) 500 mg, take 1 pill 3 times a day for 7 days. Take ibuprofen 200 mg pills, 3 pills every 6 hours as needed for pain. Take Tylenol (acetaminophen) 500 mg pills, 2 pills every 4 to 6 hours as needed for pain. Your MRI of your cervical spine done on 10/22/2021 revealed severe arthritis of the bones of your neck which is causing narrowing of your spinal canal (spinal stenosis) at 3 level: C3-C4, C4-C5, and C5-C6. This narrowing is causing pre ssure on the spinal cord which is causing the numbness in your hands, most likely you had increase inflammation in your spinal cord from peeing ceiling which caused the weakness in your left arm. You need to see a spinal surgeon to see if there is any possibility for surgical intervention to help with the narrowing of your spinal canal. You may need to get a referral from your primary care doctor however you can try to contact the spinal surgeon at [facility], Dr. Dutch monte to see if he can see you without a referral. His phone number is . You can also go to [facility], be evaluated by them and they may be able to refer you to a spinal surgeon as well. Their phone number is [phone]. They have a spinal surgeon affiliated with their practice named Dr. Benedicto Chapman. Prescriptions: New cephalexin 500 mg capsule 500 mg PO QID 7 Days Qty: 28 0RF No Action dexamethasone [Decadron] 4 mg tablet See Rx Instructions .Route .COMPLEX Qty: 18 0RF Rx Instructions: 4 mg orally; 1 p.o. t.i.d. x3 days, 1 p.o. b.i.d. x3 days, 1 p.o. daily x3 days Referrals: [facility] [Provider Group] - 1 week (bilateral hand numbness/pain weakness of left arm resolved after high-dose IV steroidsrecent MRI C-spine 10/22/2021 impression: Advanced spondylitic changes result in severe central canal stenosis and mass effect on the cervical spinal cord at C4-C5 and C5-C6 as well as moderate central canal stenosis and more mild mass effect on the cervical spinal cord at C3-C4. No definite cord signal changes however assessment is limited by the degree of artifact. Advanced spondylitic changes result in severe multilevel foraminal stenosis throughout the cervical spine as discussed in detail above.) Interventions: ED Discharge Assessment Last Done: 11/03/21 18:18 Discharge Date/Time: 11/03/21 18:19
[2021-11-03] MEDS: cephALEXin 500 MG CAPSULE PO (17:57)
== END 2021-11-03 18:19 | disposition home or self-care (01) ==
PROVIDERS: Emergency Provider Emergency Medicine Emergency Medical Services; PCP Physician Assistant
DX: L08.9 Local infection of the skin and subcutaneous tissue, unspecified (principal); B96.89 Other specified bacterial agents as the cause of diseases classified elsewhere; M54.50 Low back pain, unspecified; R51.9 Headache, unspecified; Z87.891 Personal history of nicotine dependence; Z79.899 Other long term (current) drug therapy
CPT/HCPCS: 36415; 80053; 82248; 84484; 85025; 93005; 99284

== ENCOUNTER → 2021-12-09 10:10 | Outpatient (BNVA) | payer OTHER, SELFPAY | PROVIDERS: PCP Physician Assistant; Visit Provider Surgery | DX: D17.0 Benign lipomatous neoplasm of skin and subcutaneous tissue of head, face and neck (principal) | CPT/HCPCS: 99202 ==

== ENCOUNTER 2022-01-15 08:02 | Outpatient (REF) | payer OTHER, MEDICAID, SELFPAY ==
--- NOTE | 2022-01-15 10:37 | MHC.AU.MED ---
Medical Clearance for Hearing Instrumentation Date: 01/15/22 Patient Name: Romie Roy Date of : 1955 Referring Provider: Paulo Dorado PA-C We have seen your patient on 01/15/22 and have determined that they are a candidate for amplification (See accompanying report). Specifically, they would benefit from: Hearing aid use in both ears There is a statute that addresses Medical Evaluation Requirements prior to fitting a patient with a hearing aid. According to [place] statute 265 CMR:6.03(1), (a) General. Except as provided in 265 CMR 6.03(1)(b), a [facility] shed [facility] shall not sell a hearing aid unless the prospective user has presented to the [facility] a written statement signed by a licensed physician that states that the patient's hearing loss has been medically evaluated and the patient may be considered a candidate for a hearing aid. The medical evaluation must have taken place within the preceding six months. Please note: Due to the [place] Statute referenced above, we cannot accept a signature other than that of a licensed physician. VITICULTURE TEACHER and PA signatures cannot be accepted. I am in agreement with the above recommendation. There is no medical contraindication for hearing instrumentation. Physician Signature Date Physician Name (Printed)
--- NOTE | 2022-01-15 10:39 | MHC.AU.HAS ---
Hearing Aid Evaluation Date of Visit: 01/15/22 Historical Information: Description of Hearing: Right- Moderate sloping to profound and rising to moderately-severe. Left- Mild sloping to severe and rising to moderate. Summary: Patient was seen for audiological evaluation (see separate report for details). He has long-standing history of hearing loss, likely from childhood, but has not previously worn hearing aids. He is highly interested in trying amplification. Hearing aid options were discussed. He is interested in ITC styles so they don't interfere with his glasses. He is also interested in Bluetooth and rechargeability. Discussed pros and cons of rechargeable batteries. He has loss of sensation in his fingers due to a recent neck injury and suspects he would have difficulty changing disposable batteries. He also uses his phone frequently- discussed that streaming uses more battery power, and there is a chance the charge may not last until the end of the day. He would like to go with the rechargeable due to his dexterity/numbness concerns. Impressions were taken bilaterally without incident and will be sent to [facility]. Hearing Aid Prescription: Based on the individual?s shared listening needs, communication environments, dexterity, desire for connectivity, and personal preferences, the following prescription for amplification has been made: Right and Left ears: Trucksmith: [employer] AI 1600 ITC-R Action Taken/Action Needed: [place] Impressions Taken Medical Clearance to be requested from PCP/ENT Hearing Instrument Fitting to be scheduled when materials arrive Primary Diagnosis: H90.3 Bilateral Sensorineural Hearing Loss Signature: Provider: Douglas Tanner, [facility]
== END 2022-01-15 08:03 | disposition home or self-care (01) ==
LOC: HO.SH 08:02
PROVIDERS: Visit Provider Physician Assistant
DX: Z01.118 Encounter for examination of ears and hearing with other abnormal findings (principal); Z46.1 Encounter for fitting and adjustment of hearing aid; H90.3 Sensorineural hearing loss, bilateral
CPT/HCPCS: 92557; 92567; 92591; V5275

== ENCOUNTER 2022-01-15 09:33 | Outpatient (REF) | payer OTHER, SELFPAY ==
[2022-01-15 10:19] LABS: Hematocrit 46.8 % (42.0-52.0); Mean Corpuscular HGB Conc 34.2 g/dl (31.0-36.0); Mean Corpuscular Hemoglobin 30.9 pg (27.0-33.0); Mean Corpuscular Volume 90.3 fL (80.0-98.0); Mean Platelet Volume 9.4 fL (9.4-12.4); Platelet Count 223 X10*3/uL (160-400); Red Blood Count 5.18 X10*6/uL (4.60-5.80); Red Cell Distribution Width 12.4 % (11.0-16.0); White Blood Count 8.6 X10*3/uL (4.8-10.8)
[2022-01-15 11:06] LABS: Alanine Aminotransferase 26 U/L (0-40); Albumin Level 4.3 g/dL (3.5-5.0); Alkaline Phosphatase 79 U/L (39-117); Anion Gap 13 (12-20); Aspartate Amino Transferase 21 U/L (5-37); Bilirubin Total 0.6 mg/dL (0.0-1.0); Blood Urea Nitrogen 20 mg/dL (9-16); Calcium 9.6 mg/dL (8.4-10.2); Carbon Dioxide 26 mmol/L (22-29); Chloride 107 mmol/L (96-108); Cholesterol 248 mg/dL; Estimated Glomerular Filt Rate > 60; Glucose Fasting 103 mg/dL (60-99); HDL Cholesterol 45 mg/dL; LDL Cholesterol Calculated 172 mg/dl; Potassium 4.5 mmol/L (3.3-5.1); Sodium 141 mmol/L (135-145); Total Protein 6.7 g/dL (6.5-8.0); Triglycerides 159 mg/dL
== END 2022-01-15 09:34 | disposition home or self-care (01) ==
LOC: HO.LAB 09:33
PROVIDERS: PCP Physician Assistant; Visit Provider Physician Assistant
DX: Z13.29 Encounter for screening for other suspected endocrine disorder (principal); Z13.220 Encounter for screening for lipoid disorders
CPT/HCPCS: 36415; 80053; 80061; 84443; 85027

== ENCOUNTER 2022-01-30 10:46 | Outpatient (REF) | payer OTHER, MEDICAID, SELFPAY ==
[2022-01-30 10:57] VITALS: BMI 40.4
[2022-01-30 10:58] VITALS: BP 167/81; PULSE 71; RESP 16; TEMP 36.5; O2SAT 98
--- NOTE | 2022-01-30 12:03 | P.OP_ITS ---
Operative Note Operative Note Date of Service: 01/30/22 Narrative: Preop diagnosis: Lipoma, forehead Postop diagnosis: The same Procedure: Excision of lipoma from the forehead under local anesthesia Surgeon: Angel Lerma MD The patient is a 66-year-old male with a lipomatous mass on the forehead measuring about 3 cm. He understood the technique of excision and was aware of the risks, benefits, and alternatives. He was brought to the minor procedure room. He was placed in reclining position. The area of the lipoma on the forehead was prepped and draped. Lidocaine 1% was used for local anesthesia. I used a blade 15 to make an incision on the skin along the Lázaro's lines overlying the lipoma. This was carried down through the full-thickness of the skin and subcutaneous fat until was able to visualize a lipoma. I used the Metzenbaum scissors to gently and sh arply dissect fibrous bands surrounding lipoma and release this from the case layer. I dissected circumferentially all the way posteriorly to lift this off of the fascia. This was then sent as specimen. This Lipoma measured about 3.3 cm. I irrigated and observed for hemostasis. Once hemostasis was confirmed, I closed the incision with full-thickness nylon 3-0 simple interrupted sutures. Dressings were applied. The procedure was completed. The patient tolerated procedure well. There were no immediate complications estimated blood loss about 40 cc The patient was given wound care instructions and will be seen in the office for postop visit next week.
[2022-01-30 12:05] VITALS: BP 163/79; PULSE 72; RESP 16; O2SAT 95
== END 2022-01-30 10:47 | disposition home or self-care (01) ==
LOC: HO.MS 10:46
PROVIDERS: PCP Physician Assistant; Visit Provider Surgery
PROC: (CPT 21012; principal; 2022-01-30 11:30)
DX: D17.0 Benign lipomatous neoplasm of skin and subcutaneous tissue of head, face and neck (principal)
CPT/HCPCS: 21012; 88304

== ENCOUNTER → 2022-02-06 10:47 | Outpatient (BNVA) | payer OTHER, MEDICAID, SELFPAY | PROVIDERS: PCP Physician Assistant; Visit Provider Physician Assistant Surgical | DX: Z48.3 Aftercare following surgery for neoplasm (principal); Z86.018 Personal history of other benign neoplasm | CPT/HCPCS: 99212 ==

== ENCOUNTER 2022-06-13 11:00 | Outpatient (REF) | payer OTHER, SELFPAY ==
[2022-06-13 12:03] LABS: Appearance Urine Cloudy; Color Urine Yellow; Glucose Urine UA Negative (Negative); Leukocyte Esterase Urine Large (3+) (Negative); Nitrite Urine Negative (Negative); PH 5.5 (5.0-9.0); Specific Gravity - Urine 1.015 (1.005-1.025); UMIC TRIGGER UACC YES; Urine Blood Trace (Negative); Urine Ketones Negative (Negative); Urine Protein Trace mg/dL (Neg-Trace)
[2022-06-13 12:14] LABS: Bacteria Urine Trace (None Seen); Hyaline Casts Urine 0-2 /LPF (0-2); RBC Urine 0-2 /HPF (0-2); Squamous Epithelial Cell Urine 0-2 /HPF (0-2); UACC Culture Trigger YES; WBC Urine >50 /HPF (0-5)
== END 2022-06-13 11:01 | disposition home or self-care (01) ==
LOC: HO.LAB 11:00
PROVIDERS: PCP Physician Assistant; Visit Provider Physician Assistant
DX: R39.9 Unspecified symptoms and signs involving the genitourinary system (principal)
CPT/HCPCS: 81001; 81003; 87086; 87088; 87186

== ENCOUNTER 2022-06-14 15:59 | Emergency (ER) | payer OTHER, MEDICAID, SELFPAY ==
[2022-06-14 16:12] VITALS: BP 177/88; PULSE 85; RESP 18; TEMP 36.8; O2SAT 96; BMI 42.0
--- NOTE | 2022-06-14 16:13 | ED.GENADULT ---
HPI - General Adult General Chief complaint: Urogenital-Male Stated complaint: unable to urinate Time Seen by Provider: 06/14/22 17:06 Related Data Home Medications Medication Instructions Recorded Confirmed oxycodone 5 mg tablet 5 mg PO Q6H PRN moderate pain 12/30/21 12/30/21 tizanidine 2 mg tablet 2 mg PO TID 12/30/21 12/30/21 Previous Rx's Medication Instructions Recorded atorvastatin 10 mg tablet 10 mg PO DAILY 90 days #90 tabs 01/15/22 loratadine-pseudoephedrine ER 10 1 tab PO DAILY PRN nasal 02/05/22 mg-240 mg tablet,extended congestion 20 days #20 tabs [id number] (Claritin-D 24 Hour) cefuroxime axetil 500 mg tablet 500 mg PO BID #20 tabs 06/14/22 phenazopyridine 200 mg tablet 200 mg PO TID 2 days #6 tabs 06/14/22 (Pyridium) Allergies Allergy/AdvReac Type Severity Reaction Status Date / Time No Known Allergies Allergy Verified 02/06/22 11:11 [facility] Past Medical History Medical History (Updated 06/15/22 @ 00:25 by Jomar Nagel) Lipoma of forehead Surgical History (Updated 02/06/22 @ 11:36 by Deepika Crain PA-C) History of excision of mass History of knee surgery Hx of tonsillectomy Family History Family History Mother Colon cancer, Onset Age: 60 DMII (diabetes mellitus, type 2) Brother Prostate cancer Social History Social History Housing: Apartment Alcohol intake: former Year quit: 1989 Patient Tobacco Use Status: Former Tobacco user Quit Date: 2001 Years Smoked: 32 e-Cigarette/Vaping Use: Never Used Advance Directives: No Advance Directives Information Provided: No Advance Directives Date on File: 10/21/21 service: No Current occupational status: retired Cognitive needs: No Hearing needs: No Vision needs: Yes (Glasses) Physical Exam ED Vital Signs: Vital Signs - 24 hr 06/14/22 16:12 Temperature 98.3 F Pulse Rate 85 Respiratory Rate 18 Blood Pressure 177/88 H Pulse Oximetry 96 Oxygen Delivery Method Room Air BMI result Body Mass Index 42.0 Course Course Course Narrative: This is an RME: Additional HPI, ROS, PE not included below will be deferred to primary provider. This is a 66-year-old male who presents to the emergency department with dark cloudy urine, urinary retention, dysuria x 3 weeks, worsening. Patient also reports low back pain for several days. No flank pain, no N/V or fevers. Has suprapubic pain on examination. VSS. Pt stable to return to the waiting room until a treatment room becomes available. Plan: UA, labs, bladder scan. Medications Administered Discontinued Medications Generic Name Dose Route Start Last Admin Trade Name Freq PRN Reason Stop Dose Admin Cefuroxime Axetil 500 mg 06/14/22 17:32 06/14/22 18:14 Cefuroxime Axetil 500 Mg Tablet PO 06/14/22 17:33 500 mg ONCE ONE Administration Phenazopyridine HCl 200 mg 06/14/22 17:32 06/14/22 18:14 Phenazopyridine Hcl 200 Mg Tablet PO 06/14/22 17:33 200 mg ONCE ONE Administration Medical Decision Making Lab Data 06/14/22 16:22 06/14/22 16:22 Labs: Lab Results 06/14/22 06/14/22 06/14/22 Range/Units 16:22 16:22 17:03 WBC 9.3 (4.8-10.8) X10*3/uL RBC 5.31 (4.60-5.80) X10*6/uL Hgb 16.2 (14.0-18.0) g/dl Hct 47.9 (42.0-52.0) % MCV 90.2 (80.0-98.0) fL MCH 30.5 (27.0-33.0) pg MCHC 33.8 (31.0-36.0) g/dl RDW 12.7 (11.0-16.0) % Plt Count 236 (160-400) X10*3/uL MPV 9.2 L (9.4-12.4) fL Immature Gran % (Auto) 0.3 (0.0-0.4) % Neut % (Auto) 66.8 (45-73) % Lymph % (Auto) 22.4 (20-40) % [place] % (Auto) 8.1 (2-11) % Eos % (Auto) 2.1 (0-4) % Baso % (Auto) 0.3 (0-2) % Lymph # (Auto) 2.1 (1.2-4.9) X10*3/uL [place] # (Auto) 0.8 (0.1-1.2) X10*3/uL Eos # (Auto) 0.2 (0.0-0.4) X10*3/uL Baso # (Auto) 0.0 (0.0-0.2) X10*3/uL Abs Immat Gran (auto) 0.03 (0.00-0.03) X10*3/uL Absolute Neuts (auto) 6.2 (2.0-8.3) x10*3/uL Absolute Nucleated RBC 0.000 (0.0-0.012) X10*3/uL Nucleated RBC % (auto) 0.0 (0.0-0.2) /100WBC Sodium 140 (135-145) mmol/L Potassium 4.2 (3.3-5.1) mmol/L Chloride 109 H (96-108) mmol/L Carbon Dioxide 28 (22-29) mmol/L Anion Gap 7 L (12-20) BUN 15 (9-16) mg/dL Creatinine 1.14 (0.5-1.4) mg/dL Estim Creat Clear Calc 91.4 Estimated GFR > 60 Random Glucose 156 H (60-115) mg/dL Calcium 9.1 (8.4-10.2) mg/dL Magnesium 2.0 (1.6-2.6) mg/dL Total Bilirubin 0.9 (0.0-1.0) mg/dL Direct Bilirubin 0.3 (0.0-0.5) mg/dL AST 19 (5-37) U/L ALT 25 (0-40) U/L Alkaline Phosphatase 76 (39-117) U/L Total Protein 6.5 (6.5-8.0) g/dL Albumin 4.1 (3.5-5.0) g/dL Lipase 38 (8-78) U/L Urine Color Yellow Urine Appearance Turbid Urine pH 5.5 (5.0-9.0) Ur Specific [place] 1.020 (1.005-1.025) Urine Protein 30 (1+) H (Neg-Trace) mg/dL Urine Glucose (UA) Negative (Negative) mg/dL Urine Ketones Trace (Negative) mg/dL Urine Blood Small (1+) H (Negative) Urine Nitrite Positive H (Negative) Ur Leukocyte Esterase Large (3+) H (Negative) Urine RBC 3-5 H (0-2) /HPF Urine WBC >50 H (0-5) /HPF Ur Squamous Epith Cells 0-2 (0-2) /HPF Urine Bacteria 4+ (None Seen) Hyaline Casts 0-2 (0-2) /LPF Urine Yeast Present Discharge Plan Discharge Clinical Impression: UTI (urinary tract infection) Patient Disposition: Home, Self-Care Instructions: Urinary Tract Infection in Men (ED) Additional Instructions: Drink plenty of fluids Take antibiotic as prescribed Pyridium for symptoms Report to the ER/PCP if not better or increased vomiting/fever or flank pain Prescriptions: New cefuroxime axetil 500 mg tablet 500 mg PO BID Qty: 20 0RF phenazopyridine [Pyridium] 200 mg tablet 200 mg PO TID 2 Days Qty: 6 0RF No Action atorvastatin 10 mg tablet 10 mg PO DAILY 90 Days Qty: 90 1RF Claritin-D 24 Hour 10-240 mg tablet extended release 24 hr 1 tab PO DAILY PRN (Reason: nasal congestion) 20 Days Qty: 20 0RF oxycodone 5 mg tablet 5 mg PO Q6H PRN (Reason: moderate pain) tizanidine 2 mg tablet 2 mg PO TID Interventions: ED Discharge Assessment Last Done: 06/14/22 19:01 Discharge Date/Time: 06/14/22 19:02
[2022-06-14 16:27] LABS: MANUAL DIFF FLAG NO
[2022-06-14 16:29] LABS: Basophils Percent Auto 0.3 % (0-2); Eosinophils Absolute Auto 0.2 X10*3/uL (0.0-0.4); Eosinophils Percent Auto 2.1 % (0-4); Hematocrit 47.9 % (42.0-52.0); Hemoglobin 16.2 g/dl (14.0-18.0); Imm Gran Abs Auto 0.03 X10*3/uL (0.00-0.03); Imm Gran Pct Auto 0.3 % (0.0-0.4); Lymphocytes Absolute Auto 2.1 X10*3/uL (1.2-4.9); Lymphocytes Percent Auto 22.4 % (20-40); Mean Corpuscular HGB Conc 33.8 g/dl (31.0-36.0); Mean Corpuscular Hemoglobin 30.5 pg (27.0-33.0); Mean Corpuscular Volume 90.2 fL (80.0-98.0); Mean Platelet Volume 9.2 fL (9.4-12.4); Monocytes Absolute Auto 0.8 X10*3/uL (0.1-1.2); Monocytes Percent Auto 8.1 % (2-11); Neutrophils Absolute Auto 6.2 x10*3/uL (2.0-8.3); Neutrophils Percent Auto 66.8 % (45-73); Platelet Count 236 X10*3/uL (160-400); Red Blood Count 5.31 X10*6/uL (4.60-5.80); Red Cell Distribution Width 12.7 % (11.0-16.0); White Blood Count 9.3 X10*3/uL (4.8-10.8)
[2022-06-14 16:44] LABS: Alanine Aminotransferase 25 U/L (0-40); Albumin Level 4.1 g/dL (3.5-5.0); Alkaline Phosphatase 76 U/L (39-117); Anion Gap 7 (12-20); Aspartate Amino Transferase 19 U/L (5-37); Bilirubin Direct 0.3 mg/dL (0.0-0.5); Bilirubin Total 0.9 mg/dL (0.0-1.0); Blood Urea Nitrogen 15 mg/dL (9-16); Calcium 9.1 mg/dL (8.4-10.2); Carbon Dioxide 28 mmol/L (22-29); Chloride 109 mmol/L (96-108); Creatinine Clr Calc Pharmacy 91.4; Estimated Glomerular Filt Rate > 60; Glucose Random 156 mg/dL (60-115); Lipase 38 U/L (8-78); Potassium 4.2 mmol/L (3.3-5.1); Sodium 140 mmol/L (135-145); Total Protein 6.5 g/dL (6.5-8.0)
[2022-06-14 17:09] LABS: Appearance Urine Turbid; Color Urine Yellow; Glucose Urine UA Negative (Negative); Leukocyte Esterase Urine Large (3+) (Negative); Nitrite Urine Positive (Negative); PH 5.5 (5.0-9.0); UMIC TRIGGER UACC YES; Urine Blood Small (1+) (Negative); Urine Ketones Trace mg/dL (Negative); Urine Protein 30 (1+) mg/dL (Neg-Trace)
[2022-06-14 17:22] LABS: Bacteria Urine 4+ (None Seen); Hyaline Casts Urine 0-2 /LPF (0-2); Squamous Epithelial Cell Urine 0-2 /HPF (0-2); UACC Culture Trigger YES; WBC Urine >50 /HPF (0-5)
[2022-06-14] MEDS: Phenazopyridine HCL 200 MG TABLET PO (18:14)
== END 2022-06-14 19:02 | disposition home or self-care (01) ==
PROVIDERS: Physician Assistant Medical; Emergency Provider Internal Medicine; PCP Physician Assistant
DX: N39.0 Urinary tract infection, site not specified (principal); E78.5 Hyperlipidemia, unspecified; Z79.02 Long term (current) use of antithrombotics/antiplatelets; Z79.899 Other long term (current) drug therapy
CPT/HCPCS: 36415; 51798; 80048; 80076; 81001; 83690; 83735; 85025; 99283; 99284

== ENCOUNTER 2022-07-01 08:11 | Outpatient (REF) | payer OTHER, SELFPAY ==
[2022-07-01 08:54] LABS: Hemoglobin 15.9 g/dl (14.0-18.0); Mean Corpuscular HGB Conc 34.6 g/dl (31.0-36.0); Mean Corpuscular Hemoglobin 30.8 pg (27.0-33.0); Mean Corpuscular Volume 89.1 fL (80.0-98.0); Mean Platelet Volume 9.4 fL (9.4-12.4); Platelet Count 211 X10*3/uL (160-400); Red Blood Count 5.16 X10*6/uL (4.60-5.80); Red Cell Distribution Width 12.4 % (11.0-16.0); White Blood Count 7.9 X10*3/uL (4.8-10.8)
[2022-07-01 09:32] LABS: Alanine Aminotransferase 22 U/L (0-40); Albumin Level 4.2 g/dL (3.5-5.0); Alkaline Phosphatase 68 U/L (39-117); Anion Gap 11 (12-20); Aspartate Amino Transferase 20 U/L (5-37); Blood Urea Nitrogen 20 mg/dL (9-16); Calcium 9.5 mg/dL (8.4-10.2); Carbon Dioxide 25 mmol/L (22-29); Chloride 106 mmol/L (96-108); Cholesterol 174 mg/dL; Estimated Glomerular Filt Rate > 60; Glucose Fasting 109 mg/dL (60-99); HDL Cholesterol 42 mg/dL; LDL Cholesterol Calculated 118 mg/dl; Potassium 4.3 mmol/L (3.3-5.1); Sodium 138 mmol/L (135-145); Total Protein 6.4 g/dL (6.5-8.0); Triglycerides 71 mg/dL
[2022-07-01 09:50] LABS: Prostate Specific Antigen Scr 3.35 ng/mL (<0.05-4.0)
[2022-07-01 10:40] LABS: Appearance Urine Clear; Color Urine Yellow; Glucose Urine UA Negative (Negative); Leukocyte Esterase Urine Negative (Negative); Nitrite Urine Negative (Negative); Urine Blood Negative (Negative); Urine Ketones Negative (Negative); Urine Protein Negative (Neg-Trace)
== END 2022-07-01 08:12 | disposition home or self-care (01) ==
LOC: HO.LAB 08:11
PROVIDERS: PCP Physician Assistant; Visit Provider Physician Assistant
DX: Z12.5 Encounter for screening for malignant neoplasm of prostate (principal); E78.2 Mixed hyperlipidemia; R30.0 Dysuria; R39.89 Other symptoms and signs involving the genitourinary system
CPT/HCPCS: 36415; 80053; 80061; 81003; 84153; 85027

== ENCOUNTER 2022-07-10 14:51 | Outpatient (REF) | payer OTHER, MEDICAID, SELFPAY ==
--- NOTE | ~2022-07-10 | US_ITS ---
EXAMINATION: US PELVIS LIMITED (BLADDER) CLINICAL INFORMATION: Other symptoms and signs involving the genitourinary system. Recent UTI. COMPARISON: None available. TECHNIQUE: Real-time imaging of the bladder. FINDINGS: BLADDER: Well distended and normal. Bilateral ureteral jets are demonstrated. Prevoid bladder volume is 381.8 mL. Postvoid bladder volume is 11.1 mL. Prostate was not identified with certainty. US/US bladder IMPRESSION: 1. Unremarkable sonographic appearance of the bladder. 2. Prostate was not identified with certainty.
== END 2022-07-10 14:52 | disposition home or self-care (01) ==
LOC: HO.US 14:51
PROVIDERS: PCP Physician Assistant; Visit Provider Physician Assistant
DX: R39.89 Other symptoms and signs involving the genitourinary system (principal)
CPT/HCPCS: 76857

== ENCOUNTER 2022-07-18 14:08 | Outpatient (REF) | payer OTHER, SELFPAY | END 2022-07-18 14:09 | disposition home or self-care (01) | LOC: HO.LNP 14:08 | PROVIDERS: PCP Physician Assistant; Visit Provider Nurse Practitioner Family | DX: R30.0 Dysuria (principal); R39.89 Other symptoms and signs involving the genitourinary system; R35.0 Frequency of micturition; R39.15 Urgency of urination; R35.1 Nocturia; N39.0 Urinary tract infection, site not specified; R33.9 Retention of urine, unspecified | CPT/HCPCS: 51798; 87086; 99202 ==

== ENCOUNTER 2022-08-16 20:28 | Emergency (ER) | payer OTHER, SELFPAY ==
[2022-08-16 20:31] VITALS: BP 150/87; PULSE 95; RESP 20; TEMP 36.4; O2SAT 99; BMI 40.7
--- NOTE | 2022-08-16 20:32 | ED.GENADULT ---
HPI - General Adult General Chief complaint: Abdominal Pain Stated complaint: unable to poop or pee Time Seen by Provider: 08/16/22 22:35 Source: patient, RN notes reviewed and old records reviewed Mode of arrival: ambulatory Limitations: no limitations History of Present Illness HPI narrative: 67-year-old male with past medical history significant for constipation, obesity, recurrent UTI presents for evaluation of constipation Patient reports he has not had a solid bowel movement in the last 5 days He reports he has tried Dulcolax sodium, Colace without any improvement in his symptoms. He reports he is due to see GI on Thursday, in 2 days However this is for a initial visit for a colonoscopy The patient reports that he has never had a colonoscopy He does state at age 10 he had colon polyps that were removed He also reports that his mother of colon cancer age 63 Patient states that is due to have a CT scan of his abdomen pelvis on September 02 He reports he just finished a course of to defer antibiotics to treat a UTI Related Data Previous Rx's Medication Instructions Recorded atorvastatin 10 mg tablet 10 mg PO DAILY 90 days #90 tabs 01/15/22 sulfamethoxazole 800 1 tab PO BID 14 days #28 tabs 07/18/22 mg-trimethoprim 160 mg tablet (Bactrim DS) peg 3350-electrolytes 236 240 ml PO Q10M #4,000 mL 08/17/22 gram-22.74 gram-6.74 gram-5.86 gram solution (GaviLyte-G) Allergies Allergy/AdvReac Type Severity Reaction Status Date / Time No Known Allergies Allergy Verified 07/20/22 01:08 Review of Systems Constitutional: Constitutional: Reports as per HPI, Denies chills, Denies fatigue, Denies fever(s) and Denies headache(s) ENT: Denies headache(s) Cardiovascular: Cardiovascular: Denies chest pain and Denies dyspnea Respiratory: Respiratory: Denies cough and Denies dyspnea Gastrointestinal: Gastrointestinal: Reports abdominal pain, Reports constipation, Denies nausea and Denies vomiting Genitourinary: Genitourinary: Denies dysuria Neurologic: Denies headache(s) and Denies focal weakness Endocrine: Endocrine: Denies fatigue PMFSH Past Medical History Medical History Lipoma of forehead Surgical History History of excision of mass History of knee surgery History of neck surgery Hx of tonsillectomy Family History Family History Mother Colon cancer, Onset Age: 60 DMII (diabetes mellitus, type 2) Brother Prostate cancer Social History Social History Housing: Apartment Alcohol intake: never Patient Tobacco Use Status: Former Tobacco user Quit Date: 2001 Smoked: 32 Smoked in Last 30 Days: No e-Cigarette/Vaping Use: Never Used Second Hand Smoke Exposure: No Use of substances other than those prescribed or required for medical reasons: No Advance Directives: Yes Advance Directives on File: Yes Advance Directives Date on File: 10/21/21 service: No Current occupational status: retired Cognitive needs: No Hearing needs: Yes (hearing aid) Vision needs: Yes (Glasses) Physical Exam ED Vital Signs: Vital Signs - 24 hr 08/16/22 20:31 08/17/22 03:24 Temperature 97.6 F 97.3 F Pulse Rate 95 70 Respiratory Rate 20 18 Blood Pressure 150/87 H 150/75 H Pulse Oximetry 99 95 Oxygen Delivery Method Room Air Room Air BMI result Body Mass Index 40.7 Const General: healthy appearing, comfortable, no acute distress, alert and awake Nutritional Appearance: well nourished Orientation/consciousness: patient oriented x3 HENMT Head: Yes normocephalic and Yes atraumatic Eyes Eyelids: Yes eyelids normal Conjunctivae: conjunctivae normal Sclerae: sclerae normal Corneas: corneas normal Pupils: Equal, round and reactive pupils present EOM: EOMs intact bilaterally Neck Neck: Yes full ROM Resp Effort & Inspection: normal respiratory effort, able to speak in complete sentences and not labored GI Inspection: No distended Palpation (GI): Soft to palpation, not firm, Tenderness to palpation present (GI) in the LLQ and suprapubicly, Guarding due to palpation present (GI) and not rigid Auscultation: normoactive bowel sounds Skin General skin exam: no rashes or lesions noted and elasticity normal Neuro General: patient oriented x3 Cranial nerves: Yes Equal, round and reactive pupils present and Yes Bilaterally intact EOM present Cognition (Neuro): normal cognition Extrem Other: Moving all extremities well without any obvious deformities Course Course Course Narrative: RME performed by Cecile Skelton PA-C. Patient is a 67 year old assigned male at presenting to the emergency department with constipation and urinary retention. Labs and imaging ordered. Patient placed back in the waiting room pending room availability and results. Reevaluation(s) Reevaluation #1: Patient re-evaluated, he reports that he has the urge to have a bowel but has been unable to do so since receiving lactulose. I again discussed options with the patient. I again offered to attempt digital rectal disimpaction and he declines. Will try a Fleet enema and Toradol IV. The patient would like to drive home so we will avoid any sedative medications Time: 00:59 Reevaluation #2: Patient had a Fleet enema and was unable type bowel movement. At this time, he is still quite uncomfortable, I did do a digital rectal examination, there is no fecal impaction palpable. No rectal masses noted. Will get a CT scan of the abdomen pelvis with oral contrast. Time: 01:54 Reevaluation #3: Patient's workup is complete. There is concern given family history of colon cancer that patient may have colonic mass causing possible obstruction. However, patient has been able to pass stool without significant difficulty at this time. Patient has follow-up on Thursday with Gastroenterology. Will discuss all results the patient including the possibility of a chronic stricture causing him to have difficulty passing stool. Time: 06:28 Medications Administered Discontinued Medications Generic Name Dose Route Start Last Admin Trade Name Corrine PRN Reason Stop Dose Admin Barium Sulfate 900 ml 08/17/22 03:06 08/17/22 03:07 Barium Sulfate Oral (Mocha) 450 Ml Oral.Susp PO 08/17/22 03:07 900 ml ONCE ONE Administration Iohexol 100 ml 08/17/22 05:14 08/17/22 05:14 Iohexol 350 Mg/Ml 100 Ml Infus..Btl IV 08/17/22 05:15 100 ml ONCE ONE Administration Ketorolac Tromethamine 30 mg 08/17/22 00:55 08/17/22 01:06 Ketorolac Tromethamine 30 Mg/Ml Vial IVPUSH 08/17/22 00:56 30 mg ONCE ONE Administration Lactulose 20 gm 08/16/22 22:57 08/16/22 23:08 Lactulose 20 Gm/30 Ml Solution PO 08/16/22 22:58 20 gm ONCE ONE Administration Mineral Oil 133 ml 08/17/22 00:55 08/17/22 01:06 Mineral Oil Enema 133 Ml Enema NV 08/17/22 00:56 133 ml ONCE ONE Administration Medical Decision Making Medical Decision Making [facility] Narrative: And 67-year-old male presents for evaluation of constipation abdominal pain. He also reports having some rectal pain. Patient has a history of constipation. He is due to see GI in 2 days for a colonoscopy initial visit. Patient reports he tried a homemade soapsuds enema as well as the glycerin suppositories and did not have any improvement from these. I discussed potential digital rectal disimpaction the patient declines this. He states ?it feels like it is too high up for that to work. ? Will try lactulose. Patient gave a urine sample and bladder scan subsequently only showed 57 cc of urine in the bladder. Differential Diagnosis Differential Diagnoses: The differential diagnosis associated with the presentation includes Constipation Fecal impaction Bowel obstruction Urinary retention Lab Data [facility] Lab Attestation statement: I reviewed the patient's lab results. Mild leukocytosis of 12.5k to some, no anemia. Electrolytes within normal limits, as carbon dioxide is 21 which may be related to patient hyperventilating due to discomfort. BUN is slightly elevated 10 19 but GFR is greater than 60. Hand patient's T bili is 1.3, otherwise chemistries within normal limits 08/16/22 21:30 08/16/22 21:30 Labs: Lab Results 08/16/22 08/16/22 08/16/22 Range/Units 21:30 21:30 22:41 WBC 12.5 H (4.8-10.8) X10*3/uL RBC 5.36 (4.60-5.80) X10*6/uL Hgb 16.8 (14.0-18.0) g/dl Hct 47.9 (42.0-52.0) % MCV 89.4 (80.0-98.0) fL MCH 31.3 (27.0-33.0) pg MCHC 35.1 (31.0-36.0) g/dl RDW 12.5 (11.0-16.0) % Plt Count 215 (160-400) X10*3/uL MPV 9.3 L (9.4-12.4) fL Immature Gran % (Auto) 0.3 (0.0-0.4) % Neut % (Auto) 77.8 H (45-73) % Lymph % (Auto) 11.4 L (20-40) % [place] % (Auto) 8.4 (2-11) % Eos % (Auto) 1.8 (0-4) % Baso % (Auto) 0.3 (0-2) % Lymph # (Auto) 1.4 (1.2-4.9) X10*3/uL [place] # (Auto) 1.1 (0.1-1.2) X10*3/uL Eos # (Auto) 0.2 (0.0-0.4) X10*3/uL Baso # (Auto) 0.0 (0.0-0.2) X10*3/uL Abs Immat Gran (auto) 0.04 H (0.00-0.03) X10*3/uL Absolute Neuts (auto) 9.7 H (2.0-8.3) x10*3/uL Absolute Nucleated RBC 0.000 (0.0-0.012) X10*3/uL Nucleated RBC % (auto) 0.0 (0.0-0.2) /100WBC Sodium 140 (135-145) mmol/L Potassium 4.0 (3.3-5.1) mmol/L Chloride 107 (96-108) mmol/L Carbon Dioxide 21 L (22-29) mmol/L Anion Gap 16 (12-20) BUN 19 H (9-16) mg/dL Creatinine 1.03 (0.5-1.4) mg/dL Estim Creat Clear Calc 98.0 Estimated GFR > 60 Random Glucose 115 (60-115) mg/dL Calcium 9.4 (8.4-10.2) mg/dL Magnesium 1.9 (1.6-2.6) mg/dL Total Bilirubin 1.3 H (0.0-1.0) mg/dL AST 22 (5-37) U/L ALT 26 (0-40) U/L Alkaline Phosphatase 68 (39-117) U/L Total Protein 7.3 (6.5-8.0) g/dL Albumin 4.3 (3.5-5.0) g/dL Urine Color Yellow Urine Appearance Clear Urine pH 5.5 (5.0-9.0) Ur Specific [place] 1.025 (1.005-1.025) Urine Protein Negative (Neg-Trace) mg/dL Urine Glucose (UA) Negative (Negative) mg/dL Urine Ketones Trace (Negative) mg/dL Urine Blood Negative (Negative) Urine Nitrite Negative (Negative) Ur Leukocyte Esterase Negative (Negative) Independent Interpretation I performed an independent interpretation of an: Plain X-Ray (Stool burden) Radiology Impression Discussion of test interpretation with radiology: I have reviewed the radiologist's reading. (Large collection of stool in the left lower abdomen and pelvis consistent with constipation) Radiologist Impression: CT/CT abdomen pelvis w IV con IMPRESSION: Prominent stool in the sigmoid colon, with tapered narrowing in the rectum. Large bowel obstruction is a possibility with this appearance. In addition, there is increased submucosal fat throughout the collapsed rectum which can be seen as sequelae of prior inflammation, overall raising the possibility of chronic stricturing. ? Dictated By: Mauri Haji MD Signed By: <Electronically signed by Mauri Haji MD in OV> 08/17/22 0616 Discharge Plan Discharge Clinical Impression: Acute constipation Patient Disposition: Home, Self-Care Instructions: Constipation (ED) Additional Instructions: Increase fluid and fiber intake in your diet Take MiraLax every night for the next 2 weeks Drink the GoLYTELY into you have 2 bowel movements Follow-up with GI as planned on Thursday Prescriptions: New peg 3350-electrolytes [GaviLyte-G] 236-22.74-6.74 -5.86 gram recon soln 240 ml PO Q10M Qty: 4000 0RF Rx Instructions: until fecal effluent is clear No Action atorvastatin 10 mg tablet 10 mg PO DAILY 90 Days Qty: 90 1RF sulfamethoxazole-trimethoprim [Bactrim DS] 800-160 mg tablet 1 tab PO BID 14 Days Qty: 28 0RF
[2022-08-16 21:57] LABS: Alanine Aminotransferase 26 U/L (0-40); Albumin Level 4.3 g/dL (3.5-5.0); Alkaline Phosphatase 68 U/L (39-117); Anion Gap 16 (12-20); Aspartate Amino Transferase 22 U/L (5-37); Bilirubin Total 1.3 mg/dL (0.0-1.0); Blood Urea Nitrogen 19 mg/dL (9-16); Calcium 9.4 mg/dL (8.4-10.2); Carbon Dioxide 21 mmol/L (22-29); Chloride 107 mmol/L (96-108); Estimated Glomerular Filt Rate > 60; Glucose Random 115 mg/dL (60-115); Magnesium 1.9 mg/dL (1.6-2.6); Sodium 140 mmol/L (135-145); Total Protein 7.3 g/dL (6.5-8.0)
[2022-08-17 03:24] VITALS: BP 150/75; PULSE 70; RESP 18; TEMP 36.3; O2SAT 95
== END 2022-08-17 06:33 | disposition home or self-care (01) ==
PROVIDERS: Physician Assistant Medical; Emergency Provider Emergency Medicine; PCP Physician Assistant
DX: K59.00 Constipation, unspecified (principal); E78.5 Hyperlipidemia, unspecified; Z87.891 Personal history of nicotine dependence
CPT/HCPCS: 36415; 51798; 74022; 74177; 80053; 81003; 83735; 85025; 96374; 99284; 99285; J1885; Q9967

== ENCOUNTER 2022-08-18 08:01 | Outpatient (REF) | payer OTHER, SELFPAY ==
[2022-08-18 11:06] LABS: Anion Gap 13 (12-20); Blood Urea Nitrogen 20 mg/dL (9-16); Calcium 9.3 mg/dL (8.4-10.2); Carbon Dioxide 23 mmol/L (22-29); Chloride 107 mmol/L (96-108); Estimated Glomerular Filt Rate > 60; Glucose Random 92 mg/dL (60-115); Potassium 4.4 mmol/L (3.3-5.1); Sodium 139 mmol/L (135-145)
== END 2022-08-18 08:02 | disposition home or self-care (01) ==
LOC: HO.LAB 08:01
PROVIDERS: Absent Provider Physician Assistant; PCP Physician Assistant; Visit Provider Nurse Practitioner Family
DX: Z01.812 Encounter for preprocedural laboratory examination (principal); R19.5 Other fecal abnormalities; K59.04 Chronic idiopathic constipation; R39.9 Unspecified symptoms and signs involving the genitourinary system
CPT/HCPCS: 36415; 80048; 81003; 99202

== ENCOUNTER 2022-09-01 09:44 | Outpatient (AMB) | payer OTHER, SELFPAY ==
--- NOTE | 2022-09-01 09:50 | MHC.OFFVIS ---
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 Dorado. He presents to the office today for a follow-up. Of note, patient was previously seen approximately 1 month ago as a new patient for recurrent urinary tract infections at which time he was found to have a UTI and was treated with Bactrim. He has since finished antibiotic therapy. In discussion with the patient today he reports having seeked emergency room care earlier last week due to severe abdominal pain at which time he was noted to be extremely constipated. In review of patient's chart it appears CT of the abdomen was ordered and performed. These results were reviewed with the patient today. Bilateral nephrograms are symmetric. No hydronephrosis or obstructing calculus is identified. The bladder is unremarkable. Prominent stool in the sigmoid colon, with tapered narrowing in the rectum. Large bowel obstruction is a possibility with this appearance. In addition, there is increased submucosal fat throughout the collapsed rectum which can be seen as sequelae of prior inflammation, overall raising the possibility of chronic stricturing. Patient reports he has been put on a bowel regimen and has since been having daily movements with no issues. He discusses his upcoming colonoscopy on 09/23. When asked he reports significant improvement in dysuria and foul smelling urine. However, continues with lower abdominal pressure/discomfort. In office urinalysis results reviewed with the patient today. PVR 0ml. Patient with previous bladder ultrasound that was noted to be unremarkable with sonographic appearance of the bladder. Prostate was not identified with certainty. Recent PSA results 07/08-- 3.4. When asked he denies incontinence, hematuria, foul smelling urine, changes to urinary stream, flank pain, fever, and or chills. He otherwise denies any issues or concerns at this time. Discussed at length constipation relation to recurrent urinary tract infections. [facility] Medical History Lipoma of forehead Surgical History History of excision of mass History of knee surgery History of neck surgery Hx of tonsillectomy Family History Mother Colon cancer, Onset Age: 60 DMII (diabetes mellitus, type 2) Brother Prostate cancer Social History Housing: Apartment Alcohol intake: never Patient Tobacco Use Status: Former Tobacco user Quit Date: 2001 Years Smoked: 32 e-Cigarette/Vaping Use: Never Used Second Hand Smoke Exposure: No Advance Directives Date on File: 10/21/21 service: No Current occupational status: retired Cognitive needs: No Hearing needs: Yes (hearing aid) Vision needs: Yes (Glasses) Review of Systems Const Reports as per HPI Eyes Reports no additional complaints ENT Reports no additional complaints Card Reports no additional complaints Resp Reports no additional complaints GI Reports as per HPI Reports as per HPI Musc Reports no additional complaints Neuro Reports no additional complaints Psych Reports no additional complaints Endo Reports no additional complaints Edi/Lymph Reports no additional complaints Aller/Immun Reports no additional complaints Physical Exam Const General: cooperative, comfortable, no acute distress, well developed, alert and awake Nutritional Appearance: overweight Orientation/consciousness: patient oriented x3 Limitations: no limitations HEENT Head: Yes normal to inspection, Yes normocephalic and Yes atraumatic Ears: hearing grossly normal bilaterally Eyes General: appearance normal, both eyes and all related structures Neck Neck: Yes normal visual inspection and Yes trachea midline Chest Chest palpation & inspection: normal inspection of the chest Resp Effort & Inspection: normal respiratory effort and able to speak in complete sentences Cardio Rate: regular rate GI Inspection: Yes normal to inspection General: Yes no CVA tenderness Back/Spine/Pelvis Back: no CVA tenderness Skin General skin exam: no rashes or lesions noted Neuro General: patient oriented x3 Extrem General: Yes normal to inspection Psych Appearance: grossly normal and well kempt Mental Status: mental status grossly normal Speech and movement: Normal speech and movement present and Clear speech present Affect: normal affect Attitude: cooperative Thought process: Normal thought process present Thought content: Normal thought content present Insight: Fair insight present (Psych) Judgement: Fair judgement present (Psych) Office Procedures Post Void Residual Post Residual Void Post Void Residual (PVR): 0 [id number]-[id number] Void Residual by ultrasound Results AMB Urinalysis, Automated UA Leukoctes 0 Natan/uL Last Edit by Perfect Audience on 09/01/22 10:16 UA Nitrite Negative Last Edit by Perfect Audience on 09/01/22 10:16 UA Urobilinogen 0.2 mg/dL Last Edit by Perfect Audience on 09/01/22 10:16 UA Protein 0 mg/dL Last Edit by Perfect Audience on 09/01/22 10:16 UA pH 5.5 Last Edit by Perfect Audience on 09/01/22 10:16 UA Blood 0 Arie/uL Last Edit by Perfect Audience on 09/01/22 10:16 UA Specific [place] 1.025 Last Edit by Perfect Audience on 09/01/22 10:16 UA Ketone Negative Last Edit by Perfect Audience on 09/01/22 10:16 UA Bilirubin 0 mg/dL Last Edit by Perfect Audience on 09/01/22 10:16 UA Glucose 0 mg/dL Last Edit by Perfect Audience on 09/01/22 10:16 Results Reviewed Results Reviewed: Laboratory Last Values Urine pH (Auto) 5.5 09/01/22 09:53 Specific [place] (Auto) 1.025 09/01/22 09:53 Urine Protein (Auto) 0 mg/dL 09/01/22 09:53 Glucose (UA)(Auto) 0 mg/dL 09/01/22 09:53 Urine Ketones (Auto) Negative 09/01/22 09:53 Urine Blood (Auto) 0 Arie/uL 09/01/22 09:53 Urine Nitrite (Auto) Negative 09/01/22 09:53 Urine Bilirubin (Auto) 0 mg/dL 09/01/22 09:53 Urine Urobilinogen (Auto) 0.2 mg/dL 09/01/22 09:53 Leukocyte Esterase (Auto) 0 Natan/uL 09/01/22 09:53 Date of Service: 08/17/22 CT ABDOMEN AND PELVIS WITH CONTRAST? FINDINGS: LUNG BASES: The visualized lung bases are unremarkable.? LIVER, GALLBLADDER, AND BILIARY TREE: The liver is normal in size, shape, and attenuation. No focal hepatic lesion or biliary ductal dilatation is present. The gallbladder is unremarkable with no evidence of radiopaque gallstones, gallbladder wall thickening, or obvious pericholecystic inflammatory changes.? PANCREAS: Partial fatty atrophy noted.? SPLEEN: Unremarkable.? ADRENAL GLANDS: Unremarkable.? KIDNEYS AND URETERS: Bilateral nephrograms are symmetric. No hydronephrosis or obstructing calculus identified. Bilateral nonspecific perinephric stranding.? BLADDER: Unremarkable.? GASTROINTESTINAL TRACT: Prominent stool noted in the sigmoid colon, with tapered narrowing in the rectum. There is some mural prominence as well as subtle surrounding stranding in this region. There is prominent submucosal fat within the collapsed rectum which can be seen as sequelae of prior inflammation. Small bowel is unremarkable. No free fluid or free air is seen.? ABDOMINAL WALL: No significant hernia is appreciated.? LYMPH NODES: Normal. VASCULAR: There is atherosclerotic calcification along the aorta and iliac arteries. PELVIC VISCERA: Unremarkable.? OSSEOUS STRUCTURES: Degenerative changes are noted in the spine.? IMPRESSION: Prominent stool in the sigmoid colon, with tapered narrowing in the rectum. Large bowel obstruction is a possibility with this appearance. In addition, there is increased submucosal fat throughout the collapsed rectum which can be seen as sequelae of prior inflammation, overall raising the possibility of chronic stricturing. Assessment & Plan Assessment & Plan (1) Recurrent UTI: Code(s): N39.0 - Urinary tract infection, site not specified (2) Bladder pain: Code(s): R39.89 - Other symptoms and signs involving the genitourinary system Plan In office urinalysis results reviewed with the patient today; as noted above. PVR 0 mL. Patient continues with lower abdominal/bladder pain Will trial Flomax 0.[address] imaging results reviewed with the patient today. Discussed importance of follow-up with Gastroenterology as planned. Discussed at length constipation in relation to recurrent urinary tract infections. Discussed near future in office cystoscopy if symptoms persist and/or worsen. Discussed educated and encouraged to continue drinking plenty of water daily. Follow-up in 6 weeks with PVR; or sooner with any issues, concerns, and or questions. Orders: Orders AMB Urinalysis Automated Today Z13.9 - Encounter for screening, unspecified AMB Post Void Residual by ultrasound Today N39.0 - Urinary tract infection, site not specified Patient Instructions: The patient had an opportunity to ask questions regarding the treatment plan. All questions were answered. Physical exam, labs, and imaging were discussed and reviewed in detail. As well as risks, benefits, and discussion of treatment choices. No major barriers to understanding were identified. The patient expressed understanding and agreement with the above treatment plan. The patient was made aware they should contact our office by phone for worsening of their current condition, the appearance of new symptoms, or with any questions or concerns. Compliance is encouraged with any medications and follow up testing that is ordered. It is a privilege to be allowed the opportunity to participate in? your urological care.? Again, if you have any questions or concerns If you have any questions or concerns please do not hesitate to contact me. The office is [phone]. This note is constructed using voice recognition software. While every effort has been made to ensure accuracy medical record librarian errors may have been included. Yours sincerely, SABINE Valle Coding Level of Care Code Est Pt Level 4 (99676) Diagnoses Recurrent UTI N39.0 Bladder pain R39.89 CPT Codes Post Residual Void - PVR CPT Code: 44680-Sxaf Void Residual by ultrasound ([id number])
== END 2022-09-01 10:31 | disposition home or self-care (01) ==
PROVIDERS: PCP Physician Assistant; Visit Provider Nurse Practitioner Family
DX: N39.0 Urinary tract infection, site not specified (principal); R39.89 Other symptoms and signs involving the genitourinary system
CPT/HCPCS: 99214

== ENCOUNTER → 2022-09-01 09:44 | Outpatient (BNVA) | payer OTHER, SELFPAY | PROVIDERS: PCP Physician Assistant; Visit Provider Nurse Practitioner Family | DX: N39.0 Urinary tract infection, site not specified (principal); R39.89 Other symptoms and signs involving the genitourinary system | CPT/HCPCS: 51798; 99212 ==

== ENCOUNTER → 2022-09-15 07:48 | Outpatient (BNVA) | payer OTHER, SELFPAY | PROVIDERS: PCP Physician Assistant; Visit Provider Nurse Practitioner Family ==

== ENCOUNTER 2022-09-23 08:01 | Day surgery (SDC) | payer OTHER, SELFPAY ==
[2022-09-18 14:39] VITALS: BMI 40.8
--- NOTE | 2022-09-22 10:15 | HO.ANESPROP2 ---
HPI - Anesthesia Eval Consult details Narrative: 67yo M for Colonoscopy [facility] Active Problems Active Problems: All Active Problems (Updated 09/18/22 @ 14:29 by Rebecca Chris RN) Cervical radiculopathy at C6 (Acute) Cervical myelopathy (Acute) Cervical stenosis of spinal canal (Acute) Obese (Acute) Constipation by delayed colonic transit (Acute) Screening for diabetes mellitus (DM) (Acute) Screening for hypercholesterolemia (Acute) Screening for hypothyroidism (Acute) SNHL (sensorineural hearing loss) (Acute) Lipoma of scalp (Acute) Annual physical exam (Acute) HLD (hyperlipidemia) (Acute) Sinusitis (Acute) S/P excision of lipoma (Acute) Bladder pain (Acute) Colon cancer screening (Acute) Positive colorectal cancer screening using Cologuard test (Acute) Deep inguinal pain (Acute) Dysuria (Acute) Urinary frequency (Acute) Urinary urgency (Acute) Nocturia (Acute) Recurrent UTI (Acute) Incomplete bladder emptying (Acute) Pre-procedural laboratory examination (Acute) Lipoma of forehead (Acute) Past Medical History Medical History Elevated cholesterol Hearing loss Lipoma of forehead Family History Family History Mother Colon cancer, Onset Age: 60 DMII (diabetes mellitus, type 2) Brother Prostate cancer Surgical History Surgical History History of excision of mass History of knee surgery History of neck surgery Hx of tonsillectomy Social History Social History Housing: Apartment Alcohol intake: never Patient Tobacco Use Status: Former Tobacco user Quit Date: 2001 Years Smoked: 32 e-Cigarette/Vaping Use: Never Used Second Hand Smoke Exposure: No Advance Directives: No Advance Directives Information Provided: Yes Advance Directives Date on File: 10/21/21 service: No Current occupational status: retired Cognitive needs: No Hearing needs: Yes (hearing aid) Vision needs: Yes (Glasses) Meds Allergies Allergy/AdvReac Type Severity Reaction Status Date / Time No Known Allergies Allergy Verified 09/15/22 08:03 Exam Exam Date and Time: September 22, 2022 1015 Height,Weight and Vital Signs: Height 6 ft Weight 136.531 kg Pertinent Lab Results Pertinent Lab Results: Laboratory Tests 08/16/22 08/18/22 21:30 09:27 WBC 12.5 H Hgb 16.8 Hct 47.9 Plt Count 215 Sodium 139 Potassium 4.4 Chloride 107 Carbon Dioxide 23 BUN 20 H Creatinine 1.03 Assessment and Plan Assessment Anesthesia Assessment: Chart Reviewed
[2022-09-23 08:22] VITALS: BP 157/99; PULSE 75; RESP 16; TEMP 36.4; O2SAT 95
--- NOTE | 2022-09-23 08:39 | MHC.SHP ---
Pre-Procedural Eval Section A Date of Service: 09/23/22 The patient is an INPATIENT: No Changes since office visit: Yes Patient answered all questions; No Cold of Flu in the past 2 weeks, No New Medical Problems and No Changes in Medication The History & Physical has been completed within 30 days and I have reviewed it.: Yes Section B Chief Complaint: Other fecal abnormalities Allergies: Allergies Allergy/AdvReac Type Severity Reaction Status Date / Time No Known Allergies Allergy Verified 09/15/22 08:03 Plan I have reviewed the history and physical and performed a pertinent physical examination on my patient. No changes have occurred unless specified. Time Spent With Patient Time: Total time managing care of this patient today ____ minutes.
[2022-09-23] MEDS: Lactated Ringers 1,000 ML 100 ML IVCONT (08:49)
--- NOTE | 2022-09-23 09:27 | P.OP_ITS ---
Operative Note Operative Note Date of Service: 09/23/22 Narrative: COLONOSCOPY TILL CECUM WITH SNARE POLYPECTOMY, SUBMUCOSAL INJECTION AND HEMOCLIP PLACEMENT Pre-op diagnosis: Colon cancer screening Post-op diagnosis:? Colon polyps, hemorrhoids Endoscopist:? Kathie Lopez MD Anesthesia:?MAC Consent: Indications for the procedure and potential complications of bleeding, perforation, reaction to medications and missed diagnosis were discussed with the patient and informed consent was obtained. Instrument: Olympus CF H 190 L variable stiffness adult colonoscope Monitoring: Vital signs and clinical assessment, intermittent blood pressure monitoring, continuous EKG monitoring, Pulse oximetry and Carbon Dioxide monitoring were done throughout the procedure. Please see anesthesia flowsheet. Colon withdrawl time was 27 minutes. Procedure: The patient was placed in the left lateral decubitis position and pre-procedure medications were administered. After a digital rectal examination of the ano-rectum, the video colonoscope was inserted into the rectum and advanced through the colon to the cecum. The colonoscope was slowly withdrawn in a retrograde panoramic fashion and the colon mucosa was carefully examined including a retroflexed view of the rectum. Findings and interventions are described below. Procedure Difficulty: Colon was long in the was recurrent loop formation. Patient was placed in the supine position and LLQ pressure was applied to intubate the cecum Findings: Terminal Ileum: Not evaluated Cecum: Normal Ascending Colon: Two 10-12 mm sessile polyps in the mid AC - removed with a hot snare. A 3 x 3.5 cms flat polyp in the mid AC at 100 cms. Polyp was raised with 5 cc of normal saline and removed with a hot stiff snare. Polyectomy site was marked with Kim ink. Attempts to close the polypectomy site with hemoclips were unsuccessful due to location - one hemoclip was placed to coleen the site. Transverse Colon: Normal Descending Colon: Normal Sigmoid Colon: Normal Rectum: Normal Ano-rectum: Moderate internal hemorrhoids Colon preparation: Good after copious irrigation and fair in the left colon due to undigested vegetable matter which could not be suctioned Impression and Post Procedure Diagnosis: Colonoscopy Findings: Two medium sized and one large polyps removed Moderate hemorrhoids on retroflexed exam. Plan: Await pathology results Patient has an appointment on 10/07/22 in the [facility] with Jyoti Maldonado FNP- [facility]. Repeat Colonoscopy interval based on path results - in 6 months if AC polyp at 100 cms is adenomatous to check polypectomy site and 5 years if polyps are hyperplastic (due to fair prep) Pt needs extra laxatives and adult colonoscope for his next colonoscopy.. Above findings were reviewed with the patient and colon polyps handout was given in the discharge area BIOPSIES SHOWED: A.? Colon, ascending, polypectomies (2):? Fragments of tubular adenomata; negative for high-grade dysplasia or carcinoma. B.? Colon, ascending at 100 cm, polypectomy:? Sessile serrated lesion/polyp; negative for cytologic dysplasia.
[2022-09-23 10:30] VITALS: BP 133/68; PULSE 68; RESP 20; TEMP 36.1; O2SAT 96
[2022-09-23 10:45] VITALS: BP 141/73; PULSE 60; RESP 16; TEMP 36.1; O2SAT 95
[2022-09-23 12:30] LABS: Appearance Urine Clear; Color Urine Yellow; Glucose Urine UA Negative (Negative); Leukocyte Esterase Urine Negative (Negative); Nitrite Urine Negative (Negative); Urine Blood Negative (Negative); Urine Ketones Negative (Negative); Urine Protein Negative (Neg-Trace)
[2022-09-23 12:36] LABS: Bacteria Urine None Seen (None Seen); Hyaline Casts Urine 0-2 /LPF (0-2); RBC Urine 0-2 /HPF (0-2); Squamous Epithelial Cell Urine 0-2 /HPF (0-2); WBC Urine 0-5 /HPF (0-5)
== END 2022-09-23 11:34 | disposition home or self-care (01) ==
PROVIDERS: Nurse Practitioner Family; PCP Physician Assistant; Visit Provider Internal Medicine Gastroenterology
PROC: 0DJD8ZZ Inspection of Lower Intestinal Tract, Via Natural or Artificial Opening Endoscopic (ICD-10-PCS; CPT 45378; principal; 2022-09-23 09:30)
DX: R19.5 Other fecal abnormalities (principal); Z80.0 Family history of malignant neoplasm of digestive organs; D12.2 Benign neoplasm of ascending colon; K64.8 Other hemorrhoids; K59.01 Slow transit constipation; E78.5 Hyperlipidemia, unspecified; E66.9 Obesity, unspecified; Z68.41 Body mass index [BMI] 40.0-44.9, adult; Z87.440 Personal history of urinary (tract) infections; Z87.891 Personal history of nicotine dependence; Z79.899 Other long term (current) drug therapy
CPT/HCPCS: 45385; 45381; 81001; 87086; 88305

== ENCOUNTER → 2022-09-23 08:01 | Outpatient (BNV) | payer OTHER, SELFPAY | PROVIDERS: PCP Physician Assistant; Visit Provider Internal Medicine Gastroenterology | DX: Z12.11 Encounter for screening for malignant neoplasm of colon (principal); D12.2 Benign neoplasm of ascending colon; K64.8 Other hemorrhoids | CPT/HCPCS: 45381; 45385 ==

== ENCOUNTER 2022-10-07 09:10 | Outpatient (AMB) | payer OTHER, SELFPAY ==
--- NOTE | 2022-10-07 09:27 | A.OFFVIS_ITS ---
Intake Vital Signs 10/07/22 09:29 Height 6 ft Weight 297 lb 2.93 oz BMI 40.3 BP 169/77 H Blood Pressure Location Lt brachial Position Sitting Pulse 68 Intake Visit Reasons: r/s colon Dr. 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 Lopez HPI Details LAST VISIT: Colon cancer screening Patient has a colonoscopy scheduled. Went over the prep what to expect before during and after the procedure. Clear liquid diet before the procedure discussed with patient. Constipation Continue Senokot every day. Patient was also encouraged to increase fluid intake and activity to promote better bowel motility. I will see him after the procedure, sooner on as needed basis. Patient is agreeable to this plan and verbalizes understanding of instructions. He was given the opportunity to ask questions and all questions answered. ? Thank you for allowing me to participate in his care Plan Medications New bisacodyl (Dulcolax (bisacodyl)) take 2 tabs at noon the day before your colonoscopy 10 mg (2 x 5 mg) PO ONCE 1 day 2 tabs 0RF Z12.11 polyethylene glycol 3350 (Miralax) As directed by gastroenterology department at [facility] 238 grams PO ONCE 238 grams 0RF Z12.11 COLONSOCOPY: Findings: Terminal Ileum: Not evaluated Cecum:? Normal Ascending Colon:? Two 10-12 mm sessile polyps in the mid AC - removed with a hot snare. A 3 x 3.5 cms flat polyp in the mid AC at 100 cms.? Polyp was raised with 5 cc of normal saline and removed with a hot stiff snare.? Polyectomy site was marked with Kim ink.? Attempts to close the polypectomy site with hemoclips were unsuccessful due to location - one hemoclip was placed to ocleen the site. Transverse Colon:? Normal Descending Colon:? Normal Sigmoid Colon:? Normal Rectum:? Normal Ano-rectum:? Moderate internal hemorrhoids Colon preparation:? Good after copious irrigation and fair in the left colon due to undigested vegetable matter which could not be suctioned Impression and Post Procedure Diagnosis: Colonoscopy Findings: Two medium sized and one large polyps removed Moderate hemorrhoids on retroflexed exam. Plan: Repeat Colonoscopy interval based on path results - in 6 months if AC polyp at 100 cms is adenomatous to check polypectomy site and 5 years if polyps are hyperplastic (due to fair prep) Pt needs extra laxatives and adult colonoscope for his next colonoscopy.. Above findings were reviewed with the patient and colon polyps handout was given in the discharge area BIOPSIES SHOWED: A.? Colon, ascending, polypectomies (2):? Fragments of tubular adenomata; negative for high-grade dysplasia or carcinoma. B.? Colon, ascending at 100 cm, polypectomy:? Sessile serrated lesion/polyp; negative for cytologic dysplasia. TODAY'S VISIT Patient is here today for follow-up and to discuss colonoscopy results. Colonoscopy results and biopsy results discussed with patient. Patient will need to repeat colonoscopy in 6 months due to large tubular adenoma found in ascending polyp. Polyp measured 3-3.5 cm. Patient denies any melena, hematochezia, unintentional weight loss or ribbon like stools. Patient reports constipation. No bowel movements for couple days. Patient is using stool softener, feels like it is not really helping. Patient states that he took Senokot in the past and it caused him headache and chest pain and he thought. Patient denies any nausea or vomiting. Denies any dyspepsia, dysphagia or odynophagia. Patient reports that he is experiencing spreading fungus in toes as well as in his groin. Will order A1c today [facility] Medical History (Updated 10/07/22 @ 10:[address] [facility] Elevated cholesterol Hearing loss Lipoma of forehead Tubular adenoma Surgical History History of excision of mass History of knee surgery History of neck surgery Hx of colonoscopy Hx of tonsillectomy Family History Mother Colon cancer, Onset Age: 60 DMII (diabetes mellitus, type 2) Brother Prostate cancer Social History Housing: Apartment Alcohol intake: never Patient Tobacco Use Status: Former Tobacco user Quit Date: 2001 Years Smoked: 32 e-Cigarette/Vaping Use: Never Used Second Hand Smoke Exposure: No Advance Directives Date on File: 10/21/21 service: No Current occupational status: retired Cognitive needs: No Hearing needs: Yes (hearing aid) Vision needs: Yes (Glasses) Review of Systems Const Denies weight gain and Denies weight loss ENT Reports no additional complaints, Denies dysphagia and Denies odynophagia Card Reports no additional complaints Resp Reports no additional complaints GI Denies abdominal pain, Denies belching, Denies melena, Denies bloating, Reports constipation, Denies dysphagia, Denies excessive flatus, Denies dyspepsia, Denies heartburn, Denies diarrhea, Denies loose stools, Denies nausea, Denies odynophagia and Denies vomiting Reports no additional complaints Musc Reports no additional complaints Neuro Reports no additional complaints Psych Reports no additional complaints Endo Reports no additional complaints Physical Exam Vital Signs: Last Vital Signs Pulse 68 10/07/22 09:29 BP 169/77 H 10/07/22 09:29 BMI result Body Mass Index 40.3 Const General: healthy appearing, no acute distress and well developed Nutritional Appearance: obese Orientation/consciousness: patient oriented x3 HEENT Head: Yes normal to inspection, Yes normocephalic and Yes atraumatic Face and sinus: Yes normal facial exam Mouth: Normal oral and palatal mucosa present Throat: Yes posterior oropharynx normal, Yes tonsils normal and Yes uvula midline Eyes General: appearance normal, both eyes and all related structures Neck Neck: Yes normal visual inspection, Yes full ROM and Yes trachea midline Thyroid: Thyroid normal Resp Effort & Inspection: normal respiratory effort, able to speak in complete sentences, no tracheal deviation and symmetric chest movement Auscultation: clear to auscultation bilaterally Cardio Rate: regular rate Heart sounds: S1 normal heart sound present and S2 normal heart sound present GI Inspection: Yes normal to inspection, No distended and Yes obesity Palpation (GI): Soft to palpation, not firm, nontender and No hepatosplenomegaly present Auscultation: normal bowel sounds General: Yes no CVA tenderness Back/Spine/Pelvis Back: no CVA tenderness Skin General skin exam: elasticity normal, turgor normal and dry skin Neuro General: patient oriented x3 Psych Appearance: grossly normal Mental Status: mental status grossly normal Speech and movement: Normal speech and movement present Affect: normal affect Assessment & Plan Assessment & Plan (1) Constipation by delayed colonic transit: Code(s): K59.01 - Slow transit constipation Plan: Patient can continue taking Colace 2 capsules every evening. Patient will also start MiraLax every day. Patient was encouraged to increase fluid intake and activity to promote better bowel motility. (2) Tubular adenoma: Code(s): D36.9 - Benign neoplasm, unspecified site Plan: Large of and medium size tubular adenoma found in ascending colon. Patient will need to repeat colonoscopy in 6 months in March. Patient denies any melena, hematochezia, unintentional weight loss or ribbon like stools. (3) Status post colonoscopy: Code(s): Z98.890 - Other specified postprocedural states Plan: Patient denies any ill effects from the prep, anesthesia or procedure itself. Patient had a suboptimal prep and large and medium tubular adenoma found in the ascending colon and patient will need to repeat colonoscopy in 6 months. Patient will return to see me in 2 months to discuss better prep. Patient will start MiraLax in the morning, he can continue Colace daily. Patient was encouraged to increase fluid intake and activity to promote better bowel m otility. Patient is agreeable to this plan and verbalizes understanding of instructions. He was given the opportunity to ask questions and all questions answered. Thank you for allowing me to participate in his care Orders: Orders Hemoglobin A1c Today E11.9 - Type 2 diabetes mellitus without complications Medications: New polyethylene glycol 3350 (Miralax) 17 grams PO DAILY 510 grams 2RF docusate sodium 200 mg (2 x 100 mg) PO BEDTIME 180 caps 3RF K59.00 - Constipation, unspecified Coding Level of Care Code Est Pt Level 4 (34722) Diagnoses Constipation by delayed colonic transit K59.01 Tubular adenoma D36.9 Status post colonoscopy Z98.890 Time Spent (min) 35 Comment 20 minutes spent with patient and additional 15 minutes spent reviewing his records
[2022-10-07 09:29] VITALS: BP 169/77; PULSE 68; BMI 40.3
== END 2022-10-07 09:50 | disposition home or self-care (01) ==
PROVIDERS: PCP Physician Assistant; Visit Provider Nurse Practitioner Family
DX: K59.01 Slow transit constipation (principal); D36.9 Benign neoplasm, unspecified site; Z98.890 Other specified postprocedural states
CPT/HCPCS: 99214

== ENCOUNTER → 2022-10-07 09:10 | Outpatient (BNVA) | payer OTHER, SELFPAY | PROVIDERS: PCP Physician Assistant; Visit Provider Nurse Practitioner Family | DX: K59.01 Slow transit constipation (principal); D36.9 Benign neoplasm, unspecified site; Z98.890 Other specified postprocedural states | CPT/HCPCS: 99212 ==

== ENCOUNTER 2022-10-07 09:59 | Outpatient (AMB) | payer OTHER, SELFPAY ==
[2022-10-07 10:02] VITALS: BP 170/92; PULSE 64; O2SAT 97; BMI 40.3
--- NOTE | 2022-10-07 10:02 | A.OFFPC_ITS ---
Vital Signs 10/07/22 10:02 Height 6 ft Weight 297 lb 2 oz BMI 40.3 BP 170/92 H Blood Pressure Location Lt brachial Position Sitting Pulse 64 Pulse Source Pulse Oximeter Pulse Oximetry (%) 97 Oxygen Delivery Method Room Air Intake Visit Reasons: f/u HLD / f/u UTI Intake Note: Patient is here to follow up on UTI and HLD. Pt has been experiencing bladder pressure/pain for the past few months. 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 Patient has a past medical history significant for cervical spine disease, obesity, hyperlipidemia. Recently underwent colonoscopy and founded a large tubular adenoma polyp. Needed repeat colonoscopy in 6 months to evaluate polyp site. Concern--> still having bladder pain after he urinates. Bladder ultrasound and CT abdomen pelvis without any notal bladder concern noted. He will be following up with Urology soon. Most recent urinalysis without evidence a UTI. .. Cervical spine disease:? He is status post cervical spine disc surgery and has been doing well. Now having lower back pain over the last 2 weeks .. Hyperlipidemia:? Most recent labs continues to show elevated total cholesterol and LDL above 170.? Has been started on statin therapy, recheck fasting lipid panel at next lab draw for .. Elevated blood pressure readings:? Noted elevated blood pressure readings today in office, he reports that home blood pressures are more stable. [facility] Medical History Elevated cholesterol Hearing loss Lipoma of forehead Tubular adenoma Surgical History History of excision of mass History of knee surgery History of neck surgery Hx of colonoscopy Hx of tonsillectomy Family History Mother Colon cancer, Onset Age: 60 DMII (diabetes mellitus, type 2) Brother Prostate cancer Social History Housing: Apartment Alcohol intake: never Patient Tobacco Use Status: Former Tobacco user Quit Date: 2001 Years Smoked: 32 e-Cigarette/Vaping Use: Never Used Second Hand Smoke Exposure: No Advance Directives Date on File: 10/21/21 service: No Current occupational status: retired Cognitive needs: No Hearing needs: Yes (hearing aid) Vision needs: Yes (Glasses) Questionnaire Thrive Questionnaire Date Thrive assessed: 06/30/22 YULIANA-7 AMB Questionnaire YULIANA-7 Date YULIANA - 7 assessed: 06/30/22 Source: Developed by Drs. Nguyễn Kay, Aparna Young, Jaya Bettencourt and colleagues, with an educational marcia from [employer]. Review of Systems Const Denies headache(s) Eyes Denies loss of vision ENT Denies vertigo, Denies dizziness, Denies headache(s) and Denies sore throat Card Denies chest pain, Denies leg edema and Denies lightheadedness Resp Denies cough, Denies hemoptysis and Denies wheezing GI Denies abdominal pain, Denies melena, Denies constipation, Denies diarrhea and Denies vomiting Details: + suprapubic pain Denies dysuria, Denies urinary frequency and Denies urinary urgency Musc Denies arthralgias, Denies joint swelling, Denies numbness and Denies tingling Neuro Denies Abnormal speech present, Denies behavioral changes, Denies vertigo, Denies dizziness, Denies headache(s), Denies loss of vision, Denies memory loss, Denies numbness and Denies tingling Psych Denies anxiety, Denies behavioral changes, Denies depression, Denies memory loss and Denies panic attacks Edi/Lymph Denies easy bleeding and Denies easy bruising Aller/Immun Denies wheezing Physical exam (Primary Care) Vital Signs: Last Vital Signs Pulse 64 10/07/22 10:02 BP 170/92 H 10/07/22 10:02 Pulse Ox 97 10/07/22 10:02 Oxygen Delivery Method Room Air 08/22/23 10:02 BMI result Body Mass Index 40.3 BMI Assessment/Plan discussion: High Tobacco/Smoking Status: Tobacco use Status Tobacco use date assessed 06/30/22 10/07/22 10:03 Patient Tobacco Use Status Former Tobacco user 10/07/22 10:03 e-Cigarette/Vaping Use Never Used 10/07/22 10:03 Thrive Assessment: Date of Thrive Assessment Date Thrive assessed 06/30/22 10/07/22 10:03 Const Other: OBESE General: healthy appearing, no acute distress, alert and awake Nutritional Appearance: well nourished Orientation/consciousness: oriented to person, oriented to place and oriented to time HENMT Ears: TM's normal bilaterally General nose exam: Normal nasal mucous membranes and turbinates present Eyes Conjunctivae: conjunctivae normal Sclerae: sclerae normal Pupils: Equal, round and reactive pupils present Neck Neck: Yes no lymphadenopathy and Yes no JVD Thyroid: Thyroid normal Carotids: no bruits Resp Effort & Inspection: normal respiratory effort and not tachypneic Auscultation: no crackles, no rales, no rhonchi and no wheezes Cardio Rate: regular rate Rhythm: regular rhythm Heart sounds: no murmurs and normal S1 and S2 GI Palpation (GI): Soft to palpation, nontender, no hepatomegaly and no splenomegaly Auscultation: normal bowel sounds Skin General skin exam: no rashes or lesions noted and dry skin Neuro General: oriented to person, oriented to place and oriented to time Cranial nerves: Yes Equal, round and reactive pupils present Speech: No Abnormal speech present Gait exam (Neuro): Normal gait present Motor exam (neuro): no tremor noted Extrem Right upper extremity: full ROM Left upper extremity: full ROM Right lower extremity: full ROM; no edema Left lower extremity: full ROM; no edema Psych Mental Status: mental status grossly normal Speech and movement: Normal speech and movement present Affect: normal affect Attitude: cooperative Thought process: Normal thought process present Results AMB Hemoglobin A1c AMB Hemoglobin A1c 5.5 % Last Edit by MALATHI Wilson on 10/07/22 10:26 Results Reviewed Results Reviewed: Laboratory Last Values Hgb A1c (Clinic) 5.5 % (4.0-6.0) 10/07/22 10:13 Assessment and Plan Assessment & Plan (1) Bladder pain: Code(s): R39.89 - Other symptoms and signs involving the genitourinary system Plan: He continues to have bladder pain just before he urinates. He reports the pain relieved after urinates. He will bring up the symptoms at with his urologist. He reports his bladder pain onset was when he had his UTI that was treated with antibiotic. Advised use of NSAID for possible interstitial cystitis also of note he does report when he has orgasm he does not have any semen/ejaculate. (2) Lumbar spine pain: Code(s): M54.50 - Low back pain, unspecified Plan: Patient reports over last 2 weeks having lower lumbar spine pain without radiculopathy. Has been using topical lidocaine, ibuprofen and Tylenol without much relief. (3) Impaired glucose metabolism: Code(s): R73.09 - Other abnormal glucose Plan: Patient's most recent fasting blood sugar slightly elevated. A1c today at 5.5. He will continue to work on lifestyle modifications to reduce sugar and carbohydrates in his diet. (4) Tubular adenoma: Code(s): D36.9 - Benign neoplasm, unspecified site Plan: Was found to have a very large polyp on colonoscopy. Needs repeat colonoscopy in 6 months. (5) Constipation by delayed colonic transit: Code(s): K59.01 - Slow transit constipation Plan: Has been found to have constipation was started on MiraLax and stool softener. Denies any blood per rectum. (6) Tinea unguium: Code(s): B35.1 - Tinea unguium Plan: Does report having tinea infection in his toes and toenails. Has been using Lotrimin cream with decent affect. Will supply patient with nystatin powder to send his socks and his groin. (7) Elevated blood pressure reading in office without diagnosis of hypertension: Code(s): R03.0 - Elevated blood-pressure reading, without diagnosis of hypertension Plan: Noted elevated blood pressure readings today in office. Reports he was somewhat upset today at the check-in process. He reports that home blood pressures have been 120s to 130 systolic. Orders: Orders Comprehensive [place]. Panel Fast Today E78.2 - Mixed hyperlipidemia Lipid Panel Today E78.2 - Mixed hyperlipidemia AMB Hemoglobin A1c Today Z13.1 - Encounter for screening for diabetes mellitus Medications: New nystatin 1 appl topical DAILY 30 days 60 grams 1RF B35.1 - Tinea unguium prednisone Take 3 tablets x2 days, 2 tablets x2 days, 1 tablet x2 days 10 mg PO DAILY 6 days 12 tabs 0RF M54.50 - Low back pain, unspecified Refilled atorvastatin 10 mg PO DAILY 90 days 90 tabs 1RF E78.5 - Hyperlipidemia, unspecified Coding Level of Care Code Est Pt Level 4 (30044) Diagnoses Bladder pain R39.89 Lumbar spine pain M54.50 Impaired glucose metabolism R73.09 Tubular adenoma D36.9 Constipation by delayed colonic transit K59.01 Tinea unguium B35.1 Elevated blood pressure reading in office without diagnosis of hypertension R03.0
== END 2022-10-07 11:05 | disposition home or self-care (01) ==
PROVIDERS: PCP Physician Assistant; Visit Provider Physician Assistant
DX: R39.89 Other symptoms and signs involving the genitourinary system (principal); M54.50 Low back pain, unspecified; R73.09 Other abnormal glucose; D36.9 Benign neoplasm, unspecified site; K59.01 Slow transit constipation; B35.1 Tinea unguium; R03.0 Elevated blood-pressure reading, without diagnosis of hypertension; Z13.1 Encounter for screening for diabetes mellitus
CPT/HCPCS: 83036; 99214

== ENCOUNTER 2022-10-13 09:22 | Outpatient (REF) | payer OTHER, SELFPAY ==
[2022-10-13 10:14] LABS: Estimated Average Glucose 100 mg/dL; Hemoglobin A1c % 5.1 % (<6.0)
[2022-10-13 10:50] LABS: Alanine Aminotransferase 15 U/L (0-40); Albumin Level 4.1 g/dL (3.5-5.0); Alkaline Phosphatase 54 U/L (39-117); Anion Gap 11 (12-20); Aspartate Amino Transferase 19 U/L (5-37); Blood Urea Nitrogen 18 mg/dL (9-16); Calcium 9.1 mg/dL (8.4-10.2); Carbon Dioxide 25 mmol/L (22-29); Chloride 108 mmol/L (96-108); Cholesterol 192 mg/dL (<200); Estimated Glomerular Filt Rate > 60; Glucose Fasting 95 mg/dL (60-99); HDL Cholesterol 47 mg/dL (>40); LDL Cholesterol Calculated 126 mg/dL (<100); Potassium 4.2 mmol/L (3.3-5.1); Sodium 140 mmol/L (135-145); Total Protein 6.7 g/dL (6.5-8.0); Triglycerides 99 mg/dL (<150)
== END 2022-10-13 09:23 | disposition home or self-care (01) ==
LOC: HO.LAB 09:22
PROVIDERS: Nurse Practitioner Family; PCP Physician Assistant; Visit Provider Physician Assistant
DX: E11.9 Type 2 diabetes mellitus without complications (principal); E78.2 Mixed hyperlipidemia
CPT/HCPCS: 36415; 80053; 80061; 83036

== ENCOUNTER 2022-10-13 10:21 | Outpatient (AMB) | payer OTHER, SELFPAY ==
[2022-10-13 10:27] VITALS: BP 144/92; PULSE 65; O2SAT 96; BMI 40.4
--- NOTE | 2022-10-13 10:27 | MHC.PC.OV ---
Vital Signs 10/13/22 10:27 Height 6 ft Weight 298 lb 2 oz BMI 40.4 BP 144/92 H Blood Pressure Location Lt brachial Position Sitting Pulse 65 Pulse Source Pulse Oximeter Pulse Oximetry (%) 96 Oxygen Delivery Method Room Air Intake Visit Reasons: experiencing reaction on arms; rash? Intake Note: Pt is here for allergic reaction itchy arms and legs x three days. Box Stacker Required: No Accompanied by: Self / Same As Patient Allergies No Known Allergies Allergy (Verified 10/13/22 10:30) Tobacco use date assessed: 06/30/22 Fall risk assessment: No Falls in past year Last assessed Fall Risk: 10/13/22 Dental Screening Dental Screen Date: 10/13/22 Did you have a dental visit in the last 12 months?: Yes Did you have a dental problem in the last 6 months where you did not have access to dental care?: No Was dental information given to patient?: Patient has dentist HPI HPI Comments History of Present Illness Details 67-year-old male past medical history significant for cervical radiculopathy, hyperlipidemia, impaired glucose tolerance. Patient of Moshe Dorado presents today for same-day visit. Patient reports bilateral arm redness and warmth which is extremely itchy. Patient reports this started on Thursday. Patient states has been working out in his yard and cutting a lot of [place] down. Patient denies any new lotions, creams, soaps or detergents. Denies any new medications except now taking Colace as a stool softener in just completed a short course of prednisone for his back pain. Patient reports was using [id number] Benadryl cream with no relief. [facility] Medical History Elevated cholesterol Hearing loss Lipoma of forehead Tubular adenoma Surgical History History of excision of mass History of knee surgery History of neck surgery Hx of colonoscopy Hx of tonsillectomy Family History Mother Colon cancer, Onset Age: 60 DMII (diabetes mellitus, type 2) Brother Prostate cancer Social History Housing: Apartment Alcohol intake: never Patient Tobacco Use Status: Former Tobacco user Quit Date: 2001 Years Smoked: 32 e-Cigarette/Vaping Use: Never Used Second Hand Smoke Exposure: No Advance Directives Date on File: 10/21/21 service: No Current occupational status: retired Cognitive needs: No Hearing needs: Yes (hearing aid) Vision needs: Yes (Glasses) Questionnaire Thrive Questionnaire Date Thrive assessed: 06/30/22 YULIANA-7 AMB Questionnaire YULIANA-7 Date YULIANA - 7 assessed: 06/30/22 Source: Developed by Drs. Nguyễn Kay, Aparna Young, Jaya Bettencourt and colleagues, with an educational marcia from [employer]. Review of Systems Const Denies chills, Denies fatigue, Denies fever(s) and Denies poor appetite Eyes Denies no additional complaints Card Denies chest pain, Denies rapid heart rate and Denies dyspnea Resp Denies cough and Denies dyspnea Skin/Breast Reports rash (bilateral forearms) Neuro Denies confusion Psych Denies confusion Endo Denies fatigue Physical exam (Primary Care) Vital Signs: Last Vital Signs Pulse 65 10/13/22 10:27 BP 144/92 H 10/13/22 10:27 Pulse Ox 96 10/13/22 10:27 Oxygen Delivery Method Room Air 10/13/22 10:27 BMI result Body Mass Index 40.4 Tobacco/Smoking Status: Tobacco use Status Tobacco use date assessed 06/30/22 10/13/22 10:28 Patient Tobacco Use Status Former Tobacco user 10/13/22 10:28 e-Cigarette/Vaping Use Never Used 10/13/22 10:28 Thrive Assessment: Date of Thrive Assessment Date Thrive assessed 06/30/22 10/13/22 10:28 Const General: No confusion Orientation/consciousness: No confusion HENMT Head: Yes normocephalic and Yes atraumatic Eyes Conjunctivae: conjunctivae normal Chest Chest palpation & inspection: normal inspection of the chest Resp Effort & Inspection: normal respiratory effort Auscultation: clear to auscultation bilaterally, no crackles, no rhonchi and no wheezes Cardio Rate: regular rate Rhythm: regular rhythm Heart sounds: S1 normal heart sound present and S2 normal heart sound present Peripheral pulses: dorsalis pedis present GI Inspection: Yes normal to inspection Skin Rashes: rashes noted (Bilateral pruritic erythema noted from sleeve line down to wrist, warm) Neuro General: No confusion Extrem General: No edema Assessment and Plan Assessment & Plan (1) Contact dermatitis: Code(s): L25.9 - Unspecified contact dermatitis, unspecified cause Plan: Given patient has been working out in his yard cutting brush down, states having to wrap arms around it and pleuritic erythema starts from patient's short-sleeved shirt lying down to rest looks consistent with contact dermatitis. Steroid cream and hydroxyzine as needed for itch sent to patient's pharmacy. Patient advised not to take hydroxyzine if driving or working as a can make him drowsy. Plan Keep scheduled follow up with pcp or follow up sooner if needed. Medications: New triamcinolone acetonide 0.025% apply twice daily to bilateral forearms x 14 days 1 appl topical BID 15 grams 0RF L25.9 - Unspecified contact dermatitis, unspecified cause hydroxyzine HCl 10 mg PO TID PRN 14 tabs 0RF itching Coding Level of Care Code Est Pt Level 3 (28333) Diagnoses Contact dermatitis L25.9
== END 2022-10-13 10:53 | disposition home or self-care (01) ==
PROVIDERS: PCP Physician Assistant; Visit Provider Nurse Practitioner Family
DX: L25.9 Unspecified contact dermatitis, unspecified cause (principal)
CPT/HCPCS: 99213

== ENCOUNTER 2022-10-15 09:25 | Outpatient (AMB) | payer OTHER, SELFPAY ==
--- NOTE | 2022-10-15 09:28 | A.OFFVIS_ITS ---
Intake Intake Visit Reasons: 6w/PVR Intake Note: Patient is present for follow up recurrent uti Urology Medications: none Blood Thinner: none PVR: 71ml's Plaque Maker Required: No Accompanied by: Self / Same As Patient Allergies No Known Allergies Allergy (Verified 10/15/22 09:45) Medication List - Last Reconciled 10/15/22 by SABINE Valle atorvastatin 10 mg PO DAILY 90 days docusate sodium 200 mg (2 x 100 mg) PO BEDTIME hydroxyzine HCl 10 mg PO TID PRN nystatin 1 appl topical DAILY 30 days polyethylene glycol 3350 (Miralax) 17 grams PO DAILY triamcinolone acetonide 0.025% 1 appl topical BID HPI HPI Comments History of Present Illness Details Romie is a pleasant 67-year-old male patient of Dr. Dorado. He presents to the office today for a follow-up. Of note, patient was previously seen approximately 6 weeks ago at which time he was started on tamsulosin for incomplete bladder emptying. In discussion with the patient today he reports to not have started this medication. He discusses following up with his PCP and discussing ongoing bladder pressure and discomfort he has experienced since previous urinary tract infection he had had. He reports he was advised to take 600 mg of ibuprofen a day and reports this to be somewhat helping. In office urinalysis results reviewed with the patient today. PVR-71 mL. Discussed at length affects of and potential causes of incomplete bladder emptying. He also reports foul-smelling urine. He otherwise denies incontinence, hematuria, foul smelling urine, changes to urinary stream, flank pain, fever, and or chills. Discussed possible in office cystoscopy for further assessment evaluation. Workup has included CT of the abdomen and a PSA. Bilateral nephrograms are symmetric. No hydronephrosis or obstructing calculus is identified. The bladder is unremarkable. Patient with previous bladder ultrasound that was noted to be unremarkable with sonographic appearance of the bladder. Prostate was not identified with certainty. Recent PSA results 07/08-- 3.4. He otherwise denies any issues or concerns at this time. Discussed at length constipation relation to recurrent urinary tract infections however patient reports to be on a bowel regimen and has since been having normal bowel movements. [facility] TO [facility] Medical History Elevated cholesterol Hearing loss Lipoma of forehead Tubular adenoma Surgical History History of excision of mass History of knee surgery History of neck surgery Hx of colonoscopy Hx of tonsillectomy Family History Mother Colon cancer, Onset Age: 60 DMII (diabetes mellitus, type 2) Brother Prostate cancer Social History Housing: Apartment Alcohol intake: never Patient Tobacco Use Status: Former Tobacco user Quit Date: 2001 Years Smoked: 32 e-Cigarette/Vaping Use: Never Used Second Hand Smoke Exposure: No Advance Directives Date on File: 10/21/21 service: No Current occupational status: retired Cognitive needs: No Hearing needs: Yes (hearing aid) Vision needs: Yes (Glasses) Review of Systems Const Reports as per HPI Eyes Reports no additional complaints ENT Reports no additional complaints Card Reports no additional complaints Resp Reports no additional complaints GI Reports as per HPI Reports as per HPI Musc Reports no additional complaints Neuro Reports no additional complaints Psych Reports no additional complaints Endo Reports no additional complaints Edi/Lymph Reports no additional complaints Aller/Immun Reports no additional complaints Physical Exam Const General: cooperative, healthy appearing, comfortable, no acute distress, well developed, alert and awake Nutritional Appearance: overweight Orientation/consciousness: patient oriented x3 Limitations: no limitations HEENT Head: Yes normal to inspection, Yes normocephalic and Yes atraumatic Ears: hearing grossly normal bilaterally Eyes General: appearance normal, both eyes and all related structures Neck Neck: Yes normal visual inspection and Yes trachea midline Chest Chest palpation & inspection: normal inspection of the chest Resp Effort & Inspection: normal respiratory effort and able to speak in complete sentences Cardio Rate: regular rate GI Inspection: Yes normal to inspection General: Yes no CVA tenderness Back/Spine/Pelvis Back: no CVA tenderness Skin General skin exam: no rashes or lesions noted Neuro General: patient oriented x3 Extrem General: Yes normal to inspection Psych Appearance: grossly normal and well kempt Mental Status: mental status grossly normal Speech and movement: Normal speech and movement present and Clear speech present Affect: normal affect Attitude: cooperative Thought process: Normal thought process present Thought content: Normal thought content present Insight: Fair insight present (Psych) Judgement: Fair judgement present (Psych) Office Procedures Post Void Residual Post Residual Void Post Void Residual (PVR): 71 [id number] Void Residual by ultrasound Results AMB Urinalysis, Automated UA Leukoctes 0 Natan/uL Last Edit by Cy Cfofey on 10/15/22 09:44 UA Nitrite Negative Last Edit by Cy Coffey on 10/15/22 09:44 UA Urobilinogen 0.2 mg/dL Last Edit by Cy Coffey on 10/15/22 09:44 UA Protein 15 mg/dL Last Edit by Cy Coffey on 10/15/22 09:44 UA pH 5.5 Last Edit by [employer] Coffey on 10/15/22 09:44 UA Blood 0 Arie/uL Last Edit by Cy Coffey on 10/15/22 09:44 UA Specific [place] 1.030 Last Edit by Cy Coffey on 10/15/22 09:44 UA Ketone Negative Last Edit by Cy Coffey on 10/15/22 09:44 UA Bilirubin 0 mg/dL Last Edit by Cy Coffey on 10/15/22 09:44 UA Glucose 0 mg/dL Last Edit by [employer] Coffey on 10/15/22 09:44 Results Reviewed Results Reviewed: Laboratory Last Values Urine pH (Auto) 5.5 10/15/22 09:34 Specific [place] (Auto) 1.030 10/15/22 09:34 Urine Protein (Auto) 15 mg/dL 10/15/22 09:34 Glucose (UA)(Auto) 0 mg/dL 10/15/22 09:34 Urine Ketones (Auto) Negative 10/15/22 09:34 Urine Blood (Auto) 0 Arie/uL 10/15/22 09:34 Urine Nitrite (Auto) Negative 10/15/22 09:34 Urine Bilirubin (Auto) 0 mg/dL 10/15/22 09:34 Urine Urobilinogen (Auto) 0.2 mg/dL 10/15/22 09:34 Leukocyte Esterase (Auto) 0 Natan/uL 10/15/22 09:34 Assessment & Plan Assessment & Plan (1) Bladder pain: Code(s): R39.89 - Other symptoms and signs involving the genitourinary system (2) Recurrent UTI: Code(s): N39.0 - Urinary tract infection, site not specified (3) Nocturia: Code(s): R35.1 - Nocturia (4) Incomplete bladder emptying: Code(s): R33.9 - Retention of urine, unspecified (5) Foul smelling urine: Code(s): R82.90 - Unspecified abnormal findings in urine Plan In office urinalysis results reviewed with the patient today; as noted above. PVR 71 mL. Discussed at length potential bladder pressure related to post UTI syndrome. Discussed, educated, and stressed the importance of drinking plenty of water daily. Patient reports having retrograde ejaculation at baseline will trial alfuzosin Start alfuzosin 10 mg as discussed and prescribed. Discussed at length potential causes for incomplete bladder emptying as well as affects of incomplete bladder emptying. Discussed possible near future in office cystoscopy if symptoms persist and/or worsen. Discussed redraw of PSA for further assessment evaluation. Follow-up in 6-8 weeks with lab to be completed prior; or sooner with any issues, concerns, and or questions. Orders: Orders PSA,Total (Free>4and<10) Today N40.0 - Benign prostatic hyperplasia without lower urinary tract symptoms AMB Urinalysis Automated Today Z13.9 - Encounter for screening, unspecified AMB Post Void Residual by ultrasound Today N39.0 - Urinary tract infection, site not specified Medications: New alfuzosin ER Take before bedtime 10 mg PO BEDTIME 30 days 30 tabs 1RF N32.0 - Bladder- neck obstruction, N40.1 - Benign prostatic hyperplasia with lower urinary tract symptoms, R33.9 - Retention of urine, unspecified, R35.1 - Nocturia, R39.12 - Poor urinary stream Patient Instructions: The patient had an opportunity to ask questions regarding the treatment plan. All questions were answered. Physical exam, labs, and imaging were discussed and reviewed in detail. As well as risks, benefits, and discussion of treatment choices. No major barriers to understanding were identified. The patient expressed understanding and agreement with the above treatment plan. The patient was made aware they should contact our office by phone for worsening of their current condition, the appearance of new symptoms, or with any questions or concerns. Compliance is encouraged with any medications and follow up testing that is ordered. It is a privilege to be allowed the opportunity to participate in? your urological care.? Again, if you have any questions or concerns If you have any questions or concerns please do not hesitate to contact me. The office is [phone]. This note is constructed using voice recognition software. While every effort has been made to ensure accuracy turntable engineer errors may have been included. Yours sincerely, SABINE Valle Coding Level of Care Code Est Pt Level 4 (44000) Diagnoses Bladder pain R39.89 Recurrent UTI N39.0 Nocturia R35.1 Incomplete bladder emptying R33.9 Foul smelling urine R82.90 CPT Codes Post Residual Void - PVR CPT Code: 86899-Nxmy Void Residual by ultrasound ([id number])
== END 2022-10-15 10:07 | disposition home or self-care (01) ==
LOC: HO.HUSH 09:25
PROVIDERS: PCP Physician Assistant; Visit Provider Nurse Practitioner Family
DX: R39.89 Other symptoms and signs involving the genitourinary system (principal); N39.0 Urinary tract infection, site not specified; R35.1 Nocturia; R33.9 Retention of urine, unspecified; R82.90 Unspecified abnormal findings in urine
CPT/HCPCS: 99214

== ENCOUNTER → 2022-10-15 09:25 | Outpatient (BNVA) | payer OTHER, SELFPAY | PROVIDERS: PCP Physician Assistant; Visit Provider Nurse Practitioner Family | DX: R33.9 Retention of urine, unspecified (principal); N39.0 Urinary tract infection, site not specified; R35.1 Nocturia; R82.90 Unspecified abnormal findings in urine | CPT/HCPCS: 51798; 81003; 99212 ==

== ENCOUNTER 2022-11-21 09:42 | Outpatient (REF) | payer OTHER, SELFPAY | END 2022-11-21 09:43 | disposition home or self-care (01) | LOC: HO.LAB 09:42 | PROVIDERS: PCP Physician Assistant; Visit Provider Nurse Practitioner Family | DX: Z12.5 Encounter for screening for malignant neoplasm of prostate (principal); N40.0 Benign prostatic hyperplasia without lower urinary tract symptoms | CPT/HCPCS: 36415; 84153 ==

== ENCOUNTER 2022-11-27 09:26 | Outpatient (AMB) | payer OTHER, SELFPAY ==
--- NOTE | 2022-11-27 09:27 | MHC.OFFVIS ---
Intake Intake Visit Reasons: 6w/lab/PVR(set) Intake Note: Patient is present for follow up recurrent uti/nocturia/retention (psa 1.64) Urology Medications: alfuzosin Blood Thinner: none PVR: 0ml's Rn Transport Required: No Accompanied by: Self / Same As Patient Allergies No Known Allergies Allergy (Verified 11/27/22 10:07) Medication List - Last Reconciled 11/27/22 by SABINE Valle atorvastatin 10 mg PO DAILY 90 days docusate sodium 200 mg (2 x 100 mg) PO BEDTIME hydroxyzine HCl 10 mg PO TID PRN nystatin 1 appl topical DAILY 30 days polyethylene glycol 3350 (Miralax) 17 grams PO DAILY triamcinolone acetonide 0.025% 1 appl topical BID HPI HPI Comments History of Present Illness Details Romie is a pleasant 67-year-old male patient of Dr. Dorado. He has a past medical history of tubular adenoma, hearing loss, hypercholesteremia and lipoma of forehead. He presents to the office today for a follow-up. Of note, patient was previously seen approximately 6 weeks ago at which time his tamsulosin was discontinued and the patient was started on Alfuosin and redraw of PSA was ordered for further assessment and evaluation. When asked patient reports to be doing and feeling well. He reports having discontinued alfuzosin. He reports approximately 5 days after taking alfuzosin daily he started experiencing heaviness to his chest and once he stopped the medication his symptoms stopped. PSAs are as follows 07/08--3.4 12/08--1.6 Patient reports significant improvement in lower urinary tract symptoms however he continues to feel bladder pressure. He reports bladder pressure when bladder is full otherwise he denies urinary urgency, urinary frequency, incontinence, nocturia, hematuria, dysuria, foul smelling urine, changes to urinary stream, flank pain, fever, and or chills. He is happy with his current voiding parameters. Discussed at length importance of drinking plenty of water daily. In office urinalysis results reviewed with the patient today. PVR 0 mL. He otherwise denies any issues or concerns at this time. Discussed at length constipation relation to recurrent urinary tract infections however patient reports to be on a bowel regimen and has since been having normal bowel movements and has not experienced any UTI like symptoms. [facility] Medical History Tubular adenoma Hearing loss Elevated cholesterol Lipoma of forehead Surgical History Hx of colonoscopy History of neck surgery History of excision of mass Hx of tonsillectomy History of knee surgery Family History Mother Colon cancer, Onset Age: 60 DMII (diabetes mellitus, type 2) Brother Prostate cancer Social History Housing: Apartment Alcohol intake: never Patient Tobacco Use Status: Former Tobacco user Quit Date: 2001 Years Smoked: 32 e-Cigarette/Vaping Use: Never Used Second Hand Smoke Exposure: No Advance Directives Date on File: 10/21/21 service: No Current occupational status: retired Cognitive needs: No Hearing needs: Yes (hearing aid) Vision needs: Yes (Glasses) Review of Systems Const Reports as per HPI Eyes Reports no additional complaints ENT Reports as per HPI Card Reports as per HPI Resp Reports no additional complaints GI Reports as per HPI Reports as per HPI Musc Reports no additional complaints Neuro Reports no additional complaints Psych Reports no additional complaints Endo Reports no additional complaints Edi/Lymph Reports no additional complaints Aller/Immun Reports no additional complaints Physical Exam Const General: cooperative, healthy appearing, comfortable, no acute distress, well developed, alert and awake Orientation/consciousness: patient oriented x3 Limitations: no limitations HEENT Head: Yes normal to inspection, Yes normocephalic and Yes atraumatic Ears: hearing grossly normal bilaterally Eyes General: appearance normal, both eyes and all related structures Neck Neck: Yes normal visual inspection and Yes trachea midline Chest Chest palpation & inspection: normal inspection of the chest Resp Effort & Inspection: normal respiratory effort and able to speak in complete sentences Cardio Rate: regular rate GI Inspection: Yes normal to inspection General: Yes no CVA tenderness Back/Spine/Pelvis Back: no CVA tenderness Skin General skin exam: no rashes or lesions noted Neuro General: patient oriented x3 Extrem General: Yes normal to inspection Psych Appearance: grossly normal and well kempt Mental Status: mental status grossly normal Speech and movement: Normal speech and movement present and Clear speech present Affect: normal affect Attitude: cooperative Thought process: Normal thought process present Thought content: Normal thought content present Insight: Good insight present (Psych) Judgement: Good judgement present (Psych) Office Procedures Post Void Residual Post Residual Void Post Void Residual (PVR): 0 [id number] Void Residual by ultrasound Results AMB Urinalysis, Automated UA Leukoctes 0 Natan/uL Last Edit by [employer] Institute[employer]orio Coffey on 11/27/22 09:56 UA Nitrite Negative Last Edit by [employer] on 11/27/22 09:56 UA Urobilinogen 0.2 mg/dL Last Edit by [employer] on 11/27/22 09:56 UA Protein 0 mg/dL Last Edit by [employer] on 11/27/22 09:56 UA pH 5.0 Last Edit by [employer] on 11/27/22 09:56 UA Blood 0 Arie/uL Last Edit by [employer] on 11/27/22 09:56 UA Specific [place] 1.025 Last Edit by [employer] on 11/27/22 09:56 UA Ketone Negative Last Edit by [employer] on 11/27/22 09:56 UA Bilirubin 0 mg/dL Last Edit by [employer] on 11/27/22 09:56 UA Glucose 0 mg/dL Last Edit by [employer] on 11/27/22 09:56 Results Reviewed Results Reviewed: Laboratory Last Values Urine pH (Auto) 5.0 11/27/22 09:35 Specific [place] (Auto) 1.025 11/27/22 09:35 Urine Protein (Auto) 0 mg/dL 11/27/22 09:35 Glucose (UA)(Auto) 0 mg/dL 11/27/22 09:35 Urine Ketones (Auto) Negative 11/27/22 09:35 Urine Blood (Auto) 0 Arie/uL 11/27/22 09:35 Urine Nitrite (Auto) Negative 11/27/22 09:35 Urine Bilirubin (Auto) 0 mg/dL 11/27/22 09:35 Urine Urobilinogen (Auto) 0.2 mg/dL 11/27/22 09:35 Leukocyte Esterase (Auto) 0 Natan/uL 11/27/22 09:35 Assessment & Plan Assessment & Plan (1) Bladder pain: Code(s): R39.89 - Other symptoms and signs involving the genitourinary system (2) Sensation of pressure in bladder area: Code(s): R39.89 - Other symptoms and signs involving the genitourinary system (3) Recurrent UTI: Code(s): N39.0 - Urinary tract infection, site not specified Plan In office urinalysis results reviewed with the patient today; as noted above. PVR 0 mL. Recent PSA results reviewed with the patient today; as noted above. Patient reports significant improvement in lower urinary symptoms however is experiencing bladder pressure/pain at times/intermittently. Discussed importance of and management of constipation with stool softeners and increased fiber intake. Discussed, educated, encouraged on the importance of drinking plenty of water daily. Stop alfuzosin Follow-up in 6 months with PVR; or sooner with any issues, concerns, and or questions. Orders: Orders AMB Post Void Residual by ultrasound Today N39.0 - Urinary tract infection, site not specified AMB Urinalysis Automated Today Z13.9 - Encounter for screening, unspecified Medications: Discontinued alfuzosin ER Take before bedtime Discontinued Reason: Doctor's Order 10 mg PO BEDTIME 30 days 30 tabs 1RF N32.0 - Bladder-neck obstruction, N40.1 - Benign prostatic hyperplasia with lower urinary tract symptoms, R33.9 - Retention of urine, unspecified, R35.1 - Nocturia, R39.12 - Poor urinary stream Patient Instructions: The patient had an opportunity to ask questions regarding the treatment plan. All questions were answered. Physical exam, labs, and imaging were discussed and reviewed in detail. As well as risks, benefits, and discussion of treatment choices. No major barriers to understanding were identified. The patient expressed understanding and agreement with the above treatment plan. The patient was made aware they should contact our office by phone for worsening of their current condition, the appearance of new symptoms, or with any questions or concerns. Compliance is encouraged with any medications and follow up testing that is ordered. It is a privilege to be allowed the opportunity to participate in? your urological care.? Again, if you have any questions or concerns If you have any questions or concerns please do not hesitate to contact me. The office is [phone]. This note is constructed using voice recognition software. While every effort has been made to ensure accuracy php developer errors may have been included. Yours sincerely, MEG Valle- Coding Level of Care Code Est Pt Level 3 (82112) Diagnoses Bladder pain R39.89 Sensation of pressure in bladder area R39.89 Recurrent UTI N39.0 CPT Codes Post Residual Void - PVR CPT Code: 05781-Hopa Void Residual by ultrasound ([id number])
== END 2022-11-27 10:09 | disposition home or self-care (01) ==
LOC: HO.HUSH 09:26
PROVIDERS: PCP Physician Assistant; Visit Provider Nurse Practitioner Family
DX: R39.89 Other symptoms and signs involving the genitourinary system (principal); N39.0 Urinary tract infection, site not specified; Z13.9 Encounter for screening, unspecified
CPT/HCPCS: 99213

== ENCOUNTER → 2022-11-27 09:26 | Outpatient (BNVA) | payer OTHER, SELFPAY | PROVIDERS: PCP Physician Assistant; Visit Provider Nurse Practitioner Family | DX: R39.89 Other symptoms and signs involving the genitourinary system (principal); N39.0 Urinary tract infection, site not specified | CPT/HCPCS: 51798; 81003; 99212 ==

== ENCOUNTER 2022-12-02 09:24 | Outpatient (AMB) | payer OTHER, SELFPAY ==
[2022-12-02 09:26] VITALS: BP 163/69; PULSE 68; BMI 41.0
--- NOTE | 2022-12-02 09:26 | A.OFFVIS_ITS ---
Intake Vital Signs 12/02/22 09:26 Height 6 ft Weight 302 lb 7.587 oz BMI 41.0 BP 163/69 H Blood Pressure Location Lt brachial Position Sitting Pulse 68 Pulse Source Pulse Oximeter Intake Visit Reasons: 2 month follow up Intake Note: Pt presents to the office today for a 2 month follow up. Pt states he is feeling okay but states he has a raw pain in his upper abdomen intermittently. Allergies No Known Allergies Allergy (Verified 12/02/22 09:28) HPI 2 month follow up HPI Details LAST VISIT: Constipation by delayed colonic transit Patient can continue taking Colace 2 capsules every evening. Patient will also start MiraLax every day. Patient was encouraged to increase fluid intake and activity to promote better bowel motility. Tubular adenoma Large of and medium size tubular adenoma found in ascending colon. Patient will need to repeat colonoscopy in 6 months in March. Patient denies any melena, hematochezia, unintentional weight loss or ribbon like stools. Status post colonoscopy Patient denies any ill effects from the prep, anesthesia or procedure itself. Patient had a suboptimal prep and large and medium tubular adenoma found in the ascending colon and patient will need to repeat colonoscopy in 6 months. Patient will return to see me in 2 months to discuss better prep. Patient will start MiraLax in the morning, he can continue Colace daily. Patient was encouraged to increase fluid intake and activity to promote better bowel motility. Patient is agreeable to this plan and verbalizes understanding of instructions. He was giv en the opportunity to ask questions and all questions answered. ? TODAY'S VISIT: Patient is here today for follow-up. Patient reports that he is doing better now moving his bowels. He tried taking MiraLax, however currently he states that he does not need to take it only on as needed basis. Patient denies melena, hematochezia, unintentional weight loss or ribbon like stools. Last colonoscopy suboptimal prep and patient was recommended to repeat colonoscopy in 6-12 months. Patient is experiencing abdominal discomfort. Patient reports feeling of raw without having any burning. Patient reports that he does not feel like it is related to food. Patient states that he will pay more attention to when this is happening and if it is related to food. Patient admits to be eating fast food. Patient is also eating lot of fried food. Patient is not following healthy diet. Patient has not lost any weight. [facility] Medical History Tubular adenoma Hearing loss Elevated cholesterol Lipoma of forehead Surgical History Hx of colonoscopy History of neck surgery History of excision of mass Hx of tonsillectomy History of knee surgery Family History Mother Colon cancer, Onset Age: 60 DMII (diabetes mellitus, type 2) Brother Prostate cancer Social History Housing: Apartment Alcohol intake: never Patient Tobacco Use Status: Former Tobacco user Quit Date: 2001 Smoked: 32 e-Cigarette/Vaping Use: Never Used Second Hand Smoke Exposure: No Advance Directives Date on File: 10/21/21 service: No Current occupational status: retired Cognitive needs: No Hearing needs: Yes (hearing aid) Vision needs: Yes (Glasses) Review of Systems Const Denies weight gain and Denies weight loss ENT Reports no additional complaints, Denies dysphagia and Denies odynophagia Card Reports no additional complaints Resp Reports no additional complaints GI Reports abdominal pain (epigastric), Denies belching, Denies melena, Reports bloating, Denies change in bowel habits, Denies dysphagia, Denies excessive flatus, Denies dyspepsia, Denies heartburn, Denies diarrhea, Denies loose stools, Denies nausea, Denies odynophagia and Denies vomiting Reports no additional complaints Musc Reports no additional complaints Neuro Reports no additional complaints Psych Reports no additional complaints Endo Reports no additional complaints Physical Exam Vital Signs: Last Vital Signs Pulse 68 12/02/22 09:26 BP 163/69 H 12/02/22 09:26 BMI result Body Mass Index 41.0 Const General: healthy appearing, no acute distress and well developed Nutritional Appearance: obese Orientation/consciousness: patient oriented x3 HEENT Head: Yes normal to inspection, Yes normocephalic and Yes atraumatic Face and sinus: Yes normal facial exam Mouth: Normal oral and palatal mucosa present Throat: Yes posterior oropharynx normal, Yes tonsils normal and Yes uvula midline Eyes General: appearance normal, both eyes and all related structures Neck Neck: Yes normal visual inspection, Yes full ROM and Yes trachea midline Thyroid: Thyroid normal Resp Effort & Inspection: normal respiratory effort, able to speak in complete sentences, no tracheal deviation and symmetric chest movement Auscultation: clear to auscultation bilaterally Cardio Rate: regular rate Heart sounds: S1 normal heart sound present and S2 normal heart sound present GI Inspection: Yes normal to inspection, No distended and Yes obesity Palpation (GI): Soft to palpation, not firm, nontender and No hepatosplenomegaly present Auscultation: normal bowel sounds General: Yes no CVA tenderness Back/Spine/Pelvis Back: no CVA tenderness Skin General skin exam: elasticity normal, turgor normal and dry skin Neuro General: patient oriented x3 Psych Appearance: grossly normal Mental Status: mental status grossly normal Assessment & Plan Assessment & Plan (1) Constipation by delayed colonic transit: Code(s): K59.01 - Slow transit constipation (2) Abdominal pain: Code(s): R10.9 - Unspecified abdominal pain Qualifiers: Abdominal location: generalized Qualified Code(s): R10.84 - Generalized abdominal pain Plan Patient was encouraged to avoid dietary triggers on late night snacking. Patient reports that he is not having epigastric discomfort and does not report to have acid reflux. Treated in the past for acid reflux, however he states that he is doing well now. Patient was encouraged to increase fluid intake and activity to promote better bowel motility. I will see patient in 3 months, sooner on as needed basis. Patient will be booked for colonoscopy. Patient is agreeable to this plan and verbalizes understanding of instructions. He was given the opportunity to ask questions all questions answered. Thank you for allowing me to participate in his care Coding Level of Care Code Est Pt Level 3 (43391) Diagnoses Constipation by delayed colonic transit K59.01 Generalized abdominal pain R10.84 Abdominal location: generalized Time Spent (min) 30 Comment 20 minutes spent with patient and additional 10 minutes spent reviewing his records
== END 2022-12-02 10:06 | disposition home or self-care (01) ==
PROVIDERS: PCP Physician Assistant; Visit Provider Nurse Practitioner Family
DX: K59.01 Slow transit constipation (principal); R10.84 Generalized abdominal pain
CPT/HCPCS: 99213

== ENCOUNTER → 2022-12-02 09:24 | Outpatient (BNVA) | payer OTHER, SELFPAY | PROVIDERS: PCP Physician Assistant; Visit Provider Nurse Practitioner Family | DX: R10.84 Generalized abdominal pain (principal); K59.01 Slow transit constipation | CPT/HCPCS: 99212 ==

== ENCOUNTER 2023-03-02 14:24 | Outpatient (AMB) | payer OTHER, SELFPAY ==
[2023-03-02 14:49] VITALS: BP 160/98; PULSE 90; O2SAT 97; BMI 41.3
--- NOTE | 2023-03-02 14:49 | MHC.PC.OV ---
Vital Signs 03/02/23 14:49 Height 6 ft Weight 304 lb 6 oz BMI 41.3 BP 160/98 H Blood Pressure Location Lt brachial Position Sitting Pulse 90 Pulse Source Pulse Oximeter Pulse Oximetry (%) 97 Oxygen Delivery Method Room Air Intake Visit Reasons: ongoing finger,arm numbness Intake Note: The patient is present for persistent numbness in both arms and fingers, initially experienced mildly in December but now worsening. The patient underwent neck surgery and expresses a concern that something might shift when swallowing. [employer] Required: No Accompanied by: Self / Same As Patient Allergies No Known Allergies Allergy (Verified 03/02/23 15:24) Medication List - Last Reconciled 03/02/23 by Paulo Dorado PA-C atorvastatin 10 mg PO DAILY 90 days bisacodyl (Dulcolax (bisacodyl)) 20 mg (4 x 5 mg) PO ONCE 1 day omeprazole 20 mg PO DAILY polyethylene glycol 3350 (Miralax) 238 grams PO ONCE Tobacco use date assessed: 03/02/23 Fall risk assessment: No Falls in past year Last assessed Fall Risk: 03/02/23 Dental Screening Dental Screen Date: 03/02/23 Did you have a dental visit in the last 12 months?: Yes Did you have a dental problem in the last 6 months where you did not have access to dental care?: No Was dental information given to patient?: Patient has dentist HPI ongoing finger,arm numbness HPI Details Patient is a 67-year-old male here today for follow-up visit.? Patient has a past medical history significant for cervical spine disease, obesity, hyperlipidemia Patient reports he has been experiencing a sore posterior aspect of neck and numbness / tingling in both of his hands, he has not lost any strength in his hands he is status post cervical spine surgery in December 2021 (Dr Griggs) . He also reports having globus sensation when he swallows. He otherwise can not recall any major trauma recently to his neck. He has not reached out to his neurosurgeon as he was not impressed with follow-up after his surgery. [facility] Medical History Tubular adenoma Hearing loss Elevated cholesterol Lipoma of forehead Surgical History Hx of colonoscopy History of neck surgery History of excision of mass Hx of tonsillectomy History of knee surgery Family History Mother Colon cancer, Onset Age: 60 DMII (diabetes mellitus, type 2) Brother Prostate cancer Social History Housing: Apartment Alcohol intake: never Comment: recently developed at home. Patient Tobacco Use Status: Former Tobacco user Quit Date: 2001 Smoked: 32 e-Cigarette/Vaping Use: Never Used Second Hand Smoke Exposure: No Advance Directives Date on File: 10/21/21 service: No Current occupational status: retired Cognitive needs: No Hearing needs: Yes (hearing aid) Vision needs: Yes (Glasses) Questionnaire Thrive Questionnaire Date Thrive assessed: 06/30/22 YULIANA-7 AMB Questionnaire YULIANA-7 Date YULIANA - 7 assessed: 06/30/22 Source: Developed by Drs. Nguyễn Kay, Aparna Young, Jaya Bettencourt and colleagues, with an educational marcia from [employer]. Review of Systems Const Denies headache(s) Eyes Denies loss of vision ENT Denies vertigo, Denies dizziness, Denies headache(s) and Denies sore throat Card Denies chest pain, Denies leg edema and Denies lightheadedness Resp Denies cough, Denies hemoptysis and Denies wheezing GI Denies abdominal pain, Denies melena, Denies constipation, Denies diarrhea and Denies vomiting Denies dysuria, Denies urinary frequency and Denies urinary urgency Musc Denies arthralgias, Denies joint swelling, Denies numbness and Denies tingling Neuro Denies Abnormal speech present, Denies behavioral changes, Denies vertigo, Denies dizziness, Denies headache(s), Denies loss of vision, Denies memory loss, Denies numbness and Denies tingling Psych Denies anxiety, Denies behavioral changes, Denies depression, Denies memory loss and Denies panic attacks Edi/Lymph Denies easy bleeding and Denies easy bruising Aller/Immun Denies wheezing Physical exam (Primary Care) Vital Signs: Last Vital Signs Pulse 90 03/02/23 14:49 BP 160/98 H 03/02/23 14:49 Pulse Ox 97 01/15/24 14:49 Oxygen Delivery Method Room Air 03/02/23 14:49 BMI result Body Mass Index 41.3 Tobacco/Smoking Status: Tobacco use Status Tobacco use date assessed 03/02/23 03/02/23 14:57 Patient Tobacco Use Status Former Tobacco user 03/02/23 14:50 e-Cigarette/Vaping Use Never Used 03/02/23 14:50 Thrive Assessment: Date of Thrive Assessment Date Thrive assessed 06/30/22 03/02/23 14:50 Const General: healthy appearing, no acute distress, alert and awake Nutritional Appearance: well nourished Orientation/consciousness: oriented to person, oriented to place and oriented to time HENMT Ears: TM's normal bilaterally General nose exam: Normal nasal mucous membranes and turbinates present Eyes Conjunctivae: conjunctivae normal Sclerae: sclerae normal Pupils: Equal, round and reactive pupils present Neck Neck: Yes no lymphadenopathy and Yes no JVD Thyroid: Thyroid normal Carotids: no bruits Resp Effort & Inspection: normal respiratory effort and not tachypneic Auscultation: no crackles, no rales, no rhonchi and no wheezes Cardio Rate: regular rate Rhythm: regular rhythm Heart sounds: no murmurs and normal S1 and S2 GI Palpation (GI): Soft to palpation, nontender, no hepatomegaly and no splenomegaly Auscultation: normal bowel sounds Skin General skin exam: no rashes or lesions noted and dry skin Neuro General: oriented to person, oriented to place and oriented to time Cranial nerves: Yes Equal, round and reactive pupils present Speech: No Abnormal speech present Gait exam (Neuro): Normal gait present Motor exam (neuro): no tremor noted Extrem Right upper extremity: full ROM Left upper extremity: full ROM Right lower extremity: full ROM; no edema Left lower extremity: full ROM; no edema Psych Mental Status: mental status grossly normal Speech and movement: Normal speech and movement present Affect: normal affect Attitude: cooperative Thought process: Normal thought process present Assessment and Plan Assessment & Plan (1) Cervical stenosis of spinal canal: Code(s): M48.02 - Spinal stenosis, cervical region Plan: Has been experiencing hand numbness in changes in sensitivity. Also reports globus sensation when swallowing. He is status post cervical spine surgery December of 2021 (Dr griggs) Has not reached out to his surgeon. Will get acute x-rays to evaluate hardware placement. Will try for MRI cervical spine to evaluate for worsening canal stenosis or another disc herniation. (2) Globus sensation: Code(s): R09.A2 - Foreign body sensation, throat Orders: Orders XR cervical spine 3V 03/02/23 M48.02 - Spinal stenosis, cervical region XR soft tissue neck 03/02/23 M48.02 - Spinal stenosis, cervical region, R09.A2 - Foreign body sensation, throat MR cervical spine wo con Today M48.02 - Spinal stenosis, cervical region Medications: New prednisone take 3 tabs x 3 days , take 2 tabs x 3 days , take 1 tab x 3 days. 10 mg PO DIRECTED 18 tabs 0RF 9 days M48.02 - Spinal stenosis, cervical region Coding Level of Care Code Est Pt Level 3 (29385) Diagnoses Cervical stenosis of spinal canal M48.02 Globus sensation R09.A2
== END 2023-03-02 15:46 | disposition home or self-care (01) ==
PROVIDERS: PCP Physician Assistant; Visit Provider Physician Assistant
DX: M48.02 Spinal stenosis, cervical region (principal); R09.A2 Foreign body sensation, throat
CPT/HCPCS: 99213

== ENCOUNTER 2023-03-02 15:52 | Outpatient (REF) | payer OTHER, SELFPAY ==
--- NOTE | ~2023-03-02 | XR_ITS ---
EXAMINATION: XR CERVICAL SPINE CLINICAL INFORMATION: Spinal stenosis. COMPARISON: MRI cervical spine dated 10/22/2021. TECHNIQUE: Frontal, lateral and swimmer's views of the cervical spine were obtained. FINDINGS: Vertebral body heights are normal. At C2-C3, there is a 2 mm retrolisthesis. At C3-C4, is moderate disc space narrowing. There is well-maintained alignment status-post C4-C6 anterior fusions and discectomies, with intact anterior fixator plate, fixator screws and disc spacers. No hardware failure or loosening is seen. There is mild disc space narrowing and spondylosis C6-C7. The posterior elements are intact. There is multi-level cervical facet arthropathy. The dens is intact. No prevertebral soft tissue swelling is seen. XR/XR soft tissue neck IMPRESSION: 1. There is mild degenerative disc disease at C2-C3, moderate degenerative disc disease at C3-C4 and mild degenerative disc disease at C6-C7. 2. There is well-maintained alignment status-post C4-C6 anterior fusions and discectomies. No hardware failure or loosening is seen. 3. There is multi-level cervical facet arthropathy. EXAMINATION: XR SOFT TISSUE NECK CLINICAL INDICATION: Spinal stenosis. COMPARISON: None available. TECHNIQUE: 2 views of the soft tissue neck were obtained. FINDINGS: Soft tissue films of the neck demonstrate a normal larynx, pharynx and upper trachea. No soft tissue swelling or opaque foreign body is demonstrated. IMPRESSION: Unremarkable examination.
--- NOTE | ~2023-03-02 | XR_ITS ---
EXAMINATION: XR CERVICAL SPINE CLINICAL INFORMATION: Spinal stenosis. COMPARISON: MRI cervical spine dated 10/22/2021. TECHNIQUE: Frontal, lateral and swimmer's views of the cervical spine were obtained. FINDINGS: Vertebral body heights are normal. At C2-C3, there is a 2 mm retrolisthesis. At C3-C4, is moderate disc space narrowing. There is well-maintained alignment status-post C4-C6 anterior fusions and discectomies, with intact anterior fixator plate, fixator screws and disc spacers. No hardware failure or loosening is seen. There is mild disc space narrowing and spondylosis C6-C7. The posterior elements are intact. There is multi-level cervical facet arthropathy. The dens is intact. No prevertebral soft tissue swelling is seen. XR/XR cervical spine 3V IMPRESSION: 1. There is mild degenerative disc disease at C2-C3, moderate degenerative disc disease at C3-C4 and mild degenerative disc disease at C6-C7. 2. There is well-maintained alignment status-post C4-C6 anterior fusions and discectomies. No hardware failure or loosening is seen. 3. There is multi-level cervical facet arthropathy. EXAMINATION: XR SOFT TISSUE NECK CLINICAL INDICATION: Spinal stenosis. COMPARISON: None available. TECHNIQUE: 2 views of the soft tissue neck were obtained. FINDINGS: Soft tissue films of the neck demonstrate a normal larynx, pharynx and upper trachea. No soft tissue swelling or opaque foreign body is demonstrated. IMPRESSION: Unremarkable examination.
== END 2023-03-02 15:53 | disposition home or self-care (01) ==
LOC: HO.XRAY 15:52
PROVIDERS: PCP Physician Assistant; Visit Provider Physician Assistant
DX: M48.02 Spinal stenosis, cervical region (principal); R09.A2 Foreign body sensation, throat
CPT/HCPCS: 70360; 72040

== ENCOUNTER 2023-03-04 09:52 | Outpatient (AMB) | payer OTHER, SELFPAY ==
--- NOTE | 2023-03-04 09:57 | MHC.OFFVIS ---
Intake Vital Signs 03/04/23 09:58 Height 6 ft Weight 302 lb 0.533 oz BMI 41.0 BP 147/71 H Blood Pressure Location Lt brachial Position Sitting Pulse 82 Intake Visit Reasons: 3 month follow up Intake Note: Romie presents in the office as a 3 month follow up. CC: He states that he has procedure in April and no concerns today. Allergies No Known Allergies Allergy (Verified 03/04/23 09:59) HPI 3 month follow up HPI Details LAST VISIT: Constipation by delayed colonic transit Abdominal pain Plan Patient was encouraged to avoid dietary triggers on late night snacking. Patient reports that he is not having epigastric discomfort and does not report to have acid reflux. Treated in the past for acid reflux, however he states that he is doing well now. Patient was encouraged to increase fluid intake and activity to promote better bowel motility. I will see patient in 3 months, sooner on as needed basis. Patient will be booked for colonoscopy. Patient is agreeable to this plan and verbalizes understanding of instructions. He was given the opportunity to ask questions all questions answered. ? Thank you for allowing me to participate in his care TODAY'S VISIT Patient is here today for follow-up and to discuss going for colonoscopy. Patient reports that he has been moving his bowels well. He uses Citrucel and Senokot on as needed basis. Patient denies any melena, hematochezia, unintentional weight loss or ribbon like stools. He uses omeprazole every morning and his symptoms of acid reflux are suppressed. Patient denies any dyspepsia, dysphagia or odynophagia. Denies any issues with anesthesia in the past. Not on any anticoagulation medication. Patient denies any cardiac or respiratory symptoms. [facility] Medical History Tubular adenoma Hearing loss Elevated cholesterol Lipoma of forehead Surgical History Hx of colonoscopy History of neck surgery History of excision of mass Hx of tonsillectomy History of knee surgery Family History Mother Colon cancer, Onset Age: 60 DMII (diabetes mellitus, type 2) Brother Prostate cancer Social History Housing: Apartment Alcohol intake: never Comment: recently developed at home. Patient Tobacco Use Status: Former Tobacco user Quit Date: 2001 Years Smoked: 32 e-Cigarette/Vaping Use: Never Used Second Hand Smoke Exposure: No Advance Directives Date on File: 10/21/21 service: No Current occupational status: retired Cognitive needs: No Hearing needs: Yes (hearing aid) Vision needs: Yes (Glasses) Review of Systems Const Denies weight gain and Denies weight loss ENT Reports no additional complaints, Denies dysphagia and Denies odynophagia Card Reports no additional complaints Resp Reports no additional complaints GI Denies abdominal pain, Denies belching, Denies melena, Denies bloating, Denies change in bowel habits, Denies dysphagia, Denies excessive flatus, Denies dyspepsia, Denies heartburn, Denies diarrhea, Reports loose stools (Occasional), Denies nausea, Denies odynophagia and Denies vomiting Reports no additional complaints Musc Reports no additional complaints Neuro Reports no additional complaints Psych Reports no additional complaints Endo Reports no additional complaints Physical Exam Vital Signs: Last Vital Signs Pulse 82 03/04/23 09:58 BP 147/71 H 03/04/23 09:58 BMI result Body Mass Index 41.0 Const General: healthy appearing, no acute distress and well developed Nutritional Appearance: well nourished Orientation/consciousness: patient oriented x3 Resp Effort & Inspection: normal respiratory effort, able to speak in complete sentences, no tracheal deviation and symmetric chest movement Auscultation: clear to auscultation bilaterally Cardio Rate: regular rate GI Inspection: Yes normal to inspection, No distended and Yes obesity Palpation (GI): Soft to palpation, not firm, nontender and No hepatosplenomegaly present Auscultation: normal bowel sounds General: Yes no CVA tenderness Back/Spine/Pelvis Back: no CVA tenderness Skin General skin exam: elasticity normal, turgor normal and dry skin Neuro General: patient oriented x3 Psych Appearance: grossly normal Mental Status: mental status grossly normal Assessment & Plan Assessment & Plan (1) Diverticulosis: Code(s): K57.90 - Diverticulosis of intestine, part unspecified, without perforation or abscess without bleeding (2) Tubular adenoma: Code(s): D36.9 - Benign neoplasm, unspecified site (3) Constipation by delayed colonic transit: Code(s): K59.01 - Slow transit constipation Plan Colonoscopy scheduled for April. Patient denies any cardiac or respiratory symptoms. Patient denies any issues with anesthesia in the past. Not on any anticoagulation medication. What before during and after the procedure discussed with patient. The importance about good bowel prep and clear liquid diet day before procedure discussed with patient. I will see him after the procedure, sooner on as needed basis. Patient is agreeable to this plan and verbalizes understanding of instructions. He was given the opportunity to ask questions and all questions answered. Thank you for allowing me to participate in his care Medications: Refilled bisacodyl (Dulcolax (bisacodyl)) take 4 tabs at noon the day before your colonoscopy 20 mg (4 x 5 mg) PO ONCE 1 day 4 tabs 0RF Z12.11 - Encounter for screening for malignant neoplasm of colon polyethylene glycol 3350 (Miralax) As directed by gastroenterology department at [facility] 238 grams PO ONCE 238 grams 0RF Z12.11 - Encounter for screening for malignant neoplasm of colon Coding Level of Care Code Est Pt Level 3 (99237) Diagnoses Diverticulosis K57.90 Tubular adenoma D36.9 Constipation by delayed colonic transit K59.01 Time Spent (min) 25 Comment 15 minutes spent with patient and additional 10 minutes spent reviewing his records
[2023-03-04 09:58] VITALS: BP 147/71; PULSE 82; BMI 41.0
== END 2023-03-04 10:31 | disposition home or self-care (01) ==
PROVIDERS: PCP Physician Assistant; Visit Provider Nurse Practitioner Family
DX: K57.90 Diverticulosis of intestine, part unspecified, without perforation or abscess without bleeding (principal); D36.9 Benign neoplasm, unspecified site; K59.01 Slow transit constipation
CPT/HCPCS: 99213

== ENCOUNTER → 2023-03-04 09:52 | Outpatient (BNVA) | payer OTHER, SELFPAY | PROVIDERS: PCP Physician Assistant; Visit Provider Nurse Practitioner Family | DX: K57.90 Diverticulosis of intestine, part unspecified, without perforation or abscess without bleeding (principal); D36.9 Benign neoplasm, unspecified site; K59.01 Slow transit constipation | CPT/HCPCS: 99212 ==

== ENCOUNTER 2023-04-16 14:17 | Outpatient (REF) | payer OTHER, SELFPAY | END 2023-04-16 14:18 | disposition home or self-care (01) | LOC: HO.MRI 14:17 | PROVIDERS: PCP Physician Assistant; Visit Provider Physician Assistant | DX: Z13.89 Encounter for screening for other disorder (principal) ==

== ENCOUNTER 2023-05-08 07:22 | Day surgery (SDC) | payer OTHER, SELFPAY ==
--- NOTE | 2023-05-07 09:55 | HO.ANESPROP2 ---
Documented by User: Mary Pro NP 05/07/23 09:56 HPI - Anesthesia Eval Consult details Narrative: 67yo M for Colonoscopy PMFSH Active Problems Active Problems: All Active Problems (Updated 03/02/23 @ 15:27 by Paulo Dorado PA-C) Globus sensation (Acute) Sensation of pressure in bladder area (Acute) Foul smelling urine (Acute) Contact dermatitis (Acute) Elevated blood pressure reading in office without diagnosis of hypertension (Acute) Impaired glucose metabolism (Acute) Lumbar spine pain (Acute) Tinea unguium (Acute) Diverticulosis (Acute) Tubular adenoma (Acute) Cervical radiculopathy at C6 (Acute) Cervical myelopathy (Acute) Cervical stenosis of spinal canal (Acute) Obese (Acute) Constipation by delayed colonic transit (Acute) Screening for diabetes mellitus (DM) (Acute) Screening for hypercholesterolemia (Acute) Screening for hypothyroidism (Acute) SNHL (sensorineural hearing loss) (Acute) Lipoma of scalp (Acute) Annual physical exam (Acute) HLD (hyperlipidemia) (Acute) Sinusitis (Acute) S/P excision of lipoma (Acute) Bladder pain (Acute) Colon cancer screening (Acute) Positive colorectal cancer screening using Cologuard test (Acute) Deep inguinal pain (Acute) Dysuria (Acute) Urinary frequency (Acute) Urinary urgency (Acute) Nocturia (Acute) Recurrent UTI (Acute) Incomplete bladder emptying (Acute) Pre-procedural laboratory examination (Acute) Lipoma of forehead (Acute) Past Medical History Medical History Tubular adenoma Hearing loss Elevated cholesterol Lipoma of forehead Family History Family History Mother Colon cancer, Onset Age: 60 DMII (diabetes mellitus, type 2) Brother Prostate cancer Surgical History Surgical History Hx of colonoscopy History of neck surgery History of excision of mass Hx of tonsillectomy History of knee surgery Social History Social History Housing: Apartment Alcohol intake: never Comment: recently developed at home. Patient Tobacco Use Status: Former Tobacco user Quit Date: 2001 Years Smoked: 32 e-Cigarette/Vaping Use: Never Used Second Hand Smoke Exposure: No Advance Directives: No Advance Directives Information Provided: Yes Advance Directives Date on File: 10/21/21 service: No Current occupational status: retired Cognitive needs: No Hearing needs: Yes (hearing aid) Vision needs: Yes (Glasses) Meds Allergies Allergy/AdvReac Type Severity Reaction Status Date / Time No Known Allergies Allergy Verified 03/04/23 09:59 Assessment and Plan Assessment Anesthesia Assessment: Chart Reviewed Documented by User: Dee Kaye MD 05/08/23 08:20 HPI - Anesthesia Eval Consult details Narrative: 67yo M for Colonoscopy. Colonoscopy 09/2022. Inadequate prep, difficult colonoscopy, tubular adenoma. For repeat colonoscopy PMFSH Active Problems Active Problems: All Active Problems (Updated 05/08/23 @ 08:02 by Dee Kaye MD) Globus sensation (Acute) Sensation of pressure in bladder area (Acute) Foul smelling urine (Acute) Contact dermatitis (Acute) Elevated blood pressure reading in office without diagnosis of hypertension (Acute) Impaired glucose metabolism (Acute) Lumbar spine pain (Acute) Tinea unguium (Acute) Diverticulosis (Acute) Tubular adenoma (Acute) Cervical radiculopathy at C6 (Acute) Cervical myelopathy (Acute) Cervical stenosis of spinal canal (Acute) Morbid Obesity BMI 42.3 > Denies ANALISA Constipation by delayed colonic transit (Acute) Screening for diabetes mellitus (DM) (Acute) Screening for hypercholesterolemia (Acute) Screening for hypothyroidism (Acute) SNHL (sensorineural hearing loss) (Acute) Lipoma of scalp (Acute) Annual physical exam (Acute) HLD (hyperlipidemia) (Acute) Sinusitis (Acute) S/P excision of lipoma (Acute) Bladder pain (Acute) Colon cancer screening (Acute) Positive colorectal cancer screening using Cologuard test (Acute) Deep inguinal pain (Acute) Dysuria (Acute) Urinary frequency (Acute) Urinary urgency (Acute) Nocturia (Acute) Recurrent UTI (Acute) Incomplete bladder emptying (Acute) Pre-procedural laboratory examination (Acute) Lipoma of forehead (Acute) Past Medical History Medical History Tubular adenoma Hearing loss Elevated cholesterol Lipoma of forehead Family History Family History Mother Colon cancer, Onset Age: 60 DMII (diabetes mellitus, type 2) Brother Prostate cancer Family history of problems with anesthesia: No Surgical History Surgical History Hx of colonoscopy History of neck surgery History of excision of mass Hx of tonsillectomy History of knee surgery History of Problems with Anesthesia: No Social History Social History Housing: Apartment Alcohol intake: never Comment: recently developed at home. Patient Tobacco Use Status: Former Tobacco user Quit Date: 2001 Smoked: 32 e-Cigarette/Vaping Use: Never Used Second Hand Smoke Exposure: No Advance Directives: No Advance Directives Information Provided: Yes Advance Directives Date on File: 10/21/21 service: No Current occupational status: retired Cognitive needs: No Hearing needs: Yes (hearing aid) Vision needs: Yes (Glasses) Meds Allergies Allergy/AdvReac Type Severity Reaction Status Date / Time No Known Allergies Allergy Verified 03/04/23 09:59 Exam Height,Weight and Vital Signs: Height 6 ft Weight 141.339 kg Vital Signs Temp Pulse Resp BP Pulse Ox O2 Del Method 05/08/23 08:07 97.2 F 78 18 154/60 H 98 Room Air Airway Mallampati Class: II TM Dist: >3cm Neck ROM: Limited (S/p cervical fusion) Denture: Upper and Lower Loose/Missing/Broken Teeth: Yes (Full dentures) Heart: RRR Lungs: CTAB. Diminished Assessment and Plan Assessment Anesthesia Assessment: Anesthesia Plan Discussed and Chart Reviewed Final Anesthetic Review Family History of Problems with Anesthesia: No History of Problems with Anesthesia: No NPO: Yes ASA Class: III Final Preanesthetic Review: No Changes in Pt Med Stat, Meds/Allgs Chart Reviewed, Consent Obtained/Reviewed and Anes Risks/Benef Reviewed Patient Risk: Intermediate Procedure Risk: Low Assessment/Block/Sedation in SS: Assess/Block/Sedation-SS Anesthetic Plan Anesthetic Plan: TIVA Disposition: Standard PACU
--- NOTE | 2023-05-08 07:49 | MHC.SHP ---
Pre-Procedural Eval Section A - 24 Hr Update-Section A only Date of Service: 05/08/23 The patient is an INPATIENT: No The patient has been examined within 24 hours of the surgical procedure. The History & Physical has been completed within 30 days and I have reviewed it.: No Section B - Complete if H&P > 30 days Chief Complaint: Surveillance for colon polyps Relevant Family History (Specify if Yes): Yes Relevant Social History: Tobacco Use (Former smoker) Present Medications: see Short Stay Collaborative assessment Medical History: Significant History (Tubular adenoma Hearing loss Elevated cholesterol Lipoma of forehead) History of Previous Operations: Relevant previous surgery/procedure and date(s) (Hx of colonoscopy History of neck surgery History of excision of mass Hx of tonsillectomy History of knee surgery) Allergies: Allergies Allergy/AdvReac Type Severity Reaction Status Date / Time No Known Allergies Allergy Verified 03/04/23 09:59 Review of Systems Sugical H&P ROS: Negative: Constitution, Cardiovascular, Respiratory and Gastrointestinal Exam Surgical H&P Exam: Normal: Heart, Normal: Lungs and Normal: Extremities Plan Diagnosis/Plan: Unchanged I have reviewed the history and physical and performed a pertinent physical examination on my patient. No changes have occurred unless specified. Time Spent With Patient Time: Total time managing care of this patient today ____ minutes.
[2023-05-08 08:07] VITALS: BP 154/60; PULSE 78; RESP 18; TEMP 36.2; O2SAT 98; BMI 42.3
[2023-05-08] MEDS: Lactated Ringers 1,000 ML 100 ML IVCONT (08:20)
--- NOTE | 2023-05-08 08:26 | W.PM.OPN ---
Operative Note Operative Note Date of Service: 05/08/23 Narrative: COLONOSCOPY TILL CECUM WITH BIOPSIES AND SNARE POLYPECTOMY Pre-op diagnosis: Surveillance for colon polyps. Post-op diagnosis:? Colon polyps, Diverticulosis, hemorrhoids Endoscopist:? Kathie Lopez MD Anesthesia:?MAC Consent: Indications for the procedure and potential complications of bleeding, perforation, reaction to medications and missed diagnosis were discussed with the patient and informed consent was obtained. Instrument: Olympus CF H 190 L variable stiffness adult colonoscope Monitoring: Vital signs and clinical assessment, intermittent blood pressure monitoring, continuous EKG monitoring, Pulse oximetry and Carbon Dioxide monitoring were done throughout the procedure. Please see anesthesia flowsheet. Colon withdrawl time was 18 minutes. Procedure: The patient was placed in the left lateral decubitis position and pre-procedure medications were administered. After a digital rectal examination of the ano-rectum, the video colonoscope was inserted into the rectum and advanced through the colon to the cecum. The colonoscope was slowly withdrawn in a retrograde panoramic fashion and the colon mucosa was carefully examined including a retroflexed view of the rectum. Findings and interventions are described below. Procedure Difficulty: Colon was long and there was spasm and some loop formation. LLQ pressure was applied to intubate the cecum Findings: Terminal Ileum: Not evaluated Cecum: Normal Ascending Colon: Polypectomy site visualized at 100 cms without recurrent/residual polyp. Biopsies were obtained from the polypectomy site. A 6-7 mm nodule/edematous fold adjacent to the polypectomy site - removed with a cold snare. Transverse Colon: Normal Descending Colon: Normal Sigmoid Colon: A 5-6 mm diminutive appearing polyp at 50 cms - removed with a cold bx. Moderate diverticulosis Rectum: Normal Ano-rectum: Moderate internal hemorrhoids Colon preparation: Excellent, after some irrigation. [place] Bowel Preparation Scale Right colon; 3 Transverse colon: 3 Left colon; 3 (0 = Unprepared colon segment with mucosa not seen due to solid stool that cannot be cleared. 1 = Portion of mucosa of the colon segment seen, but other areas of the colon segment not well seen due to staining, residual stool and/or opaque liquid. 2 = Minor amount of residual staining, small fragments of stool and/or opaque liquid, but mucosa of colon segment seen well. 3 = Entire mucosa of colon segment seen well with no residual staining, small fragments of stool or opaque liquid) Impression and Post Procedure Diagnosis: Colonoscopy Findings: Two small polyps were removed Moderate diverticulosis seen in the sigmoid colon Moderate hemorrhoids on retroflexed exam. Plan: Pt has a FU appointment on 05/27/23 with Allie Maldonado NP Repeat Colonoscopy in 3-5 years if polyps are adenomatous and due to a history of adenomatous colon polyps. Above findings were reviewed with the patient and relevant handouts were given and the discharge area. BIOPSIES SHOWED: A. Colon, ascending, polypectomy: Colonic mucosa with prominent lymphoid aggregate. B. Colon, ascending polypectomy site, biopsy: Colonic mucosa with prominent lymphoid aggregate. C. Colon, sigmoid, polypectomy: Hyperplastic mucosal polyp. Comment: Multiple additional levels are examined on 3 blocks
[2023-05-08 09:07] VITALS: BP 115/71; PULSE 78; RESP 16; TEMP 36.3; O2SAT 90
[2023-05-08 09:22] VITALS: BP 123/74; PULSE 67; RESP 16; TEMP 36.2; O2SAT 94
== END 2023-05-08 10:00 | disposition home or self-care (01) ==
PROVIDERS: PCP Physician Assistant; Visit Provider Internal Medicine Gastroenterology
PROC: 0DJD8ZZ Inspection of Lower Intestinal Tract, Via Natural or Artificial Opening Endoscopic (ICD-10-PCS; CPT 45378; principal; 2023-05-08 08:30)
DX: Z12.11 Encounter for screening for malignant neoplasm of colon (principal); Z86.010 Personal history of colon polyps; K63.5 Polyp of colon; K57.30 Diverticulosis of large intestine without perforation or abscess without bleeding; K64.8 Other hemorrhoids; K59.01 Slow transit constipation; E78.00 Pure hypercholesterolemia, unspecified; H91.90 Unspecified hearing loss, unspecified ear; Z87.891 Personal history of nicotine dependence; Z98.890 Other specified postprocedural states
CPT/HCPCS: 45385; 45380; 88305; J2704

== ENCOUNTER → 2023-05-08 07:22 | Outpatient (BNV) | payer OTHER, SELFPAY | PROVIDERS: PCP Physician Assistant; Visit Provider Internal Medicine Gastroenterology | DX: Z12.11 Encounter for screening for malignant neoplasm of colon (principal); Z86.010 Personal history of colon polyps; K63.5 Polyp of colon; K57.30 Diverticulosis of large intestine without perforation or abscess without bleeding; K64.8 Other hemorrhoids | CPT/HCPCS: 45380; 45385 ==

== ENCOUNTER 2023-05-27 08:39 | Outpatient (REF) | payer OTHER, SELFPAY ==
[2023-05-27 11:36] LABS: Prostate Specific Antigen 1.25 ng/mL (<0.05-4.0)
== END 2023-05-27 08:40 | disposition home or self-care (01) ==
LOC: HO.LAB 08:39
PROVIDERS: PCP Physician Assistant; Visit Provider Nurse Practitioner Family
DX: Z12.5 Encounter for screening for malignant neoplasm of prostate (principal); K21.9 Gastro-esophageal reflux disease without esophagitis; N40.0 Benign prostatic hyperplasia without lower urinary tract symptoms; R82.90 Unspecified abnormal findings in urine; R33.9 Retention of urine, unspecified
CPT/HCPCS: 36415; 51798; 81003; 84153; 99212

== ENCOUNTER 2023-05-27 08:39 | Outpatient (AMB) | payer OTHER, SELFPAY ==
--- NOTE | 2023-05-27 09:01 | MHC.OFFVIS ---
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 Dorado. He has a past medical history of tubular adenoma, hearing loss, hypercholesteremia and lipoma of forehead. He presents to the office today for a follow-up. In discussion with the patient today he reports to be doing and feeling well. He discusses feeling his urination has improved now that he has regular bowel movements. He does continue to report foul-smelling urine and concentrated urine. In office urinalysis results reviewed with the patient today. PVR 60 mL. He otherwise denies urinary urgency, urinary frequency, incontinence, nocturia, hematuria, dysuria, changes to urinary stream, flank pain, fever, and or chills. He is happy with his current voiding parameters. PSAs are as follows: 07/08--3.4 12/08--1.6 Discussed at length importance of drinking plenty of water daily. He otherwise denies any issues or concerns at this time. Discussed at length constipation relation to recurrent urinary tract infections however patient reports to be on a bowel regimen and has since been having normal bowel movements and has not experienced any UTI like symptoms. He discusses upcoming appointment with GI today. [facility] Medical History Tubular adenoma Hearing loss Elevated cholesterol Lipoma of forehead Surgical History Hx of colonoscopy History of neck surgery History of excision of mass Hx of tonsillectomy History of knee surgery Family History Mother Colon cancer, Onset Age: 60 DMII (diabetes mellitus, type 2) Brother Prostate cancer Social History Housing: Apartment Alcohol intake: never Comment: recently developed at home. Patient Tobacco Use Status: Former Tobacco user Quit Date: 2001 Years Smoked: 32 e-Cigarette/Vaping Use: Never Used Second Hand Smoke Exposure: No Advance Directives Date on File: 10/21/21 service: No Current occupational status: retired Cognitive needs: No Hearing needs: Yes (hearing aid) Vision needs: Yes (Glasses) Review of Systems Const Reports as per HPI Eyes Reports no additional complaints ENT Reports as per HPI Card Reports as per HPI Resp Reports no additional complaints GI Reports as per HPI Reports as per HPI Musc Reports no additional complaints Neuro Reports no additional complaints Psych Reports no additional complaints Endo Reports no additional complaints Edi/Lymph Reports no additional complaints Aller/Immun Reports no additional complaints Physical Exam Const General: cooperative, healthy appearing, comfortable, no acute distress, well developed, alert and awake Nutritional Appearance: overweight Orientation/consciousness: patient oriented x3 Limitations: no limitations HEENT Head: Yes normal to inspection, Yes normocephalic and Yes atraumatic Ears: hearing grossly normal bilaterally Eyes General: appearance normal, both eyes and all related structures Neck Neck: Yes normal visual inspection and Yes trachea midline Chest Chest palpation & inspection: normal inspection of the chest Resp Effort & Inspection: normal respiratory effort and able to speak in complete sentences Cardio Rate: regular rate GI Inspection: Yes normal to inspection General: Yes no CVA tenderness Back/Spine/Pelvis Back: no CVA tenderness Skin General skin exam: no rashes or lesions noted Neuro General: patient oriented x3 Extrem General: Yes normal to inspection Psych Appearance: grossly normal and well kempt Mental Status: mental status grossly normal Speech and movement: Normal speech and movement present and Clear speech present Affect: normal affect Attitude: cooperative Thought process: Normal thought process present Thought content: Normal thought content present Insight: Fair insight present (Psych) Judgement: Fair judgement present (Psych) Office Procedures Post Void Residual Post Residual Void Post Void Residual (PVR): 60 [id number] Void Residual by ultrasound Results AMB Urinalysis, Automated UA Leukoctes 0 Natan/uL Last Edit by Cy Coffey on 05/27/23 09:13 UA Nitrite Negative Last Edit by Cy Coffey on 05/27/23 09:13 UA Urobilinogen 0.2 mg/dL Last Edit by Cy Mariliaaydin on 05/27/23 09:13 UA Protein 0 mg/dL Last Edit by Cy Coffey on 05/27/23 09:13 UA pH 6.0 Last Edit by Cy Coffey on 05/27/23 09:13 UA Blood 0 Arie/uL Last Edit by Cy Coffey on 05/27/23 09:13 UA Specific [place] 1.025 Last Edit by Cy Coffey on 05/27/23 09:13 UA Ketone Negative Last Edit by Cy Coffey on 05/27/23 09:13 UA Bilirubin 0 mg/dL Last Edit by Cy Coffey on 05/27/23 09:13 UA Glucose 0 mg/dL Last Edit by Cy Coffey on 05/27/23 09:13 Results Reviewed Results Reviewed: Laboratory Last Values Urine pH (Auto) 6.0 05/27/23 09:04 Specific [place] (Auto) 1.025 05/27/23 09:04 Urine Protein (Auto) 0 mg/dL 05/27/23 09:04 Glucose (UA)(Auto) 0 mg/dL 05/27/23 09:04 Urine Ketones (Auto) Negative 05/27/23 09:04 Urine Blood (Auto) 0 Arie/uL 05/27/23 09:04 Urine Nitrite (Auto) Negative 05/27/23 09:04 Urine Bilirubin (Auto) 0 mg/dL 05/27/23 09:04 Urine Urobilinogen (Auto) 0.2 mg/dL 05/27/23 09:04 Leukocyte Esterase (Auto) 0 Natan/uL 05/27/23 09:04 Assessment & Plan Assessment & Plan (1) Foul smelling urine: Code(s): R82.90 - Unspecified abnormal findings in urine (2) Incomplete bladder emptying: Code(s): R33.9 - Retention of urine, unspecified Plan In office urinalysis results reviewed with the patient today; as noted above. PVR 60 mL. Patient reports be happy with current voiding parameters. Discussed, educated, and stressed the importance of drinking plenty of water daily. Discussed importance of managing constipation for improvement in lower urinary tract symptoms. Will obtain PSA. Follow-up in 6 months with lab to be completed prior; or sooner with any issues, concerns, and or questions. Orders: Orders AMB Post Void Residual by ultrasound Today R35.0 - Frequency of micturition AMB Urinalysis Automated Today Z13.9 - Encounter for screening, unspecified Prostate Specific Antigen Today N40.0 - Benign prostatic hyperplasia without lower urinary tract symptoms Patient Instructions: The patient had an opportunity to ask questions regarding the treatment plan. All questions were answered. Physical exam, labs, and imaging were discussed and reviewed in detail. As well as risks, benefits, and discussion of treatment choices. No major barriers to understanding were identified. The patient expressed understanding and agreement with the above treatment plan. The patient was made aware they should contact our office by phone for worsening of their current condition, the appearance of new symptoms, or with any questions or concerns. Compliance is encouraged with any medications and follow up testing that is ordered. It is a privilege to be allowed the opportunity to participate in? your urological care.? Again, if you have any questions or concerns If you have any questions or concerns please do not hesitate to contact me. The office is [phone]. This note is constructed using voice recognition software. While every effort has been made to ensure accuracy boot repairer errors may have been included. Yours sincerely, SABINE Valle Coding Level of Care Code Est Pt Level 3 (90320) Diagnoses Foul smelling urine R82.90 Incomplete bladder emptying R33.9 CPT Codes Post Residual Void - PVR CPT Code: 42306-Hfjl Void Residual by ultrasound ([id number])
== END 2023-05-27 09:26 | disposition home or self-care (01) ==
LOC: HO.HUSH 08:39
PROVIDERS: PCP Physician Assistant; Visit Provider Nurse Practitioner Family
DX: R82.90 Unspecified abnormal findings in urine (principal); R33.9 Retention of urine, unspecified; Z13.9 Encounter for screening, unspecified
CPT/HCPCS: 99213

== ENCOUNTER 2023-05-27 09:46 | Outpatient (AMB) | payer OTHER, SELFPAY ==
[2023-05-27 09:48] VITALS: BP 173/79; PULSE 41; O2SAT 94; BMI 42.2
--- NOTE | 2023-05-27 09:48 | A.OFFVIS_ITS ---
Vital Signs 05/27/23 09:48 Height 6 ft Weight 311 lb 4.683 oz BMI 42.2 BP 173/79 H Blood Pressure Location Lt brachial Position Sitting Pulse 41 L Pulse Oximetry (%) 94 Oxygen Delivery Method Room Air Intake Visit Reasons: 2 Weeks follow up Intake Note: Patient in office today in follow up s/p colonoscopy on 05/08/[address] Lopez. CC: Patient reports black stools a day after the procedure but it resolved after that. Denies any new GI concerns today. 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 Patient denies any cardiac or respiratory symptoms. Patient denies any issues with anesthesia in the past. Not on any anticoagulation medication. What before during and after the procedure discussed with patient. The importance about good bowel prep and clear liquid diet day before procedure discussed with patient. I will see him after the procedure, sooner on as needed basis. Patient is agreeable to this plan and verbalizes understanding of instructions. He was given the opportunity to ask questions and all questions answered. ? Thank you for allowing me to participate in his care Medications Refilled bisacodyl (Dulcolax (bisacodyl)) take 4 tabs at noon the day before your colonoscopy 20 mg (4 x 5 mg) PO ONCE 1 day 4 tabs 0RF Z12.11 polyethylene glycol 3350 (Miralax) As directed by gastroenterology department at [facility] 238 grams PO ONCE 238 grams 0RF Z12.11 COLONOSCOPY Findings: Terminal Ileum: Not evaluated Cecum: Normal Ascending Colon: Polypectomy site visualized at 100 cms without recurrent/residual polyp. Biopsies were obtained from the polypectomy site. A 6-7 mm nodule/edematous fold adjacent to the polypectomy site - removed with a cold snare. Transverse Colon: Normal Descending Colon: Normal Sigmoid Colon: A 5-6 mm diminutive appearing polyp at 50 cms - removed with a cold bx. Moderate diverticulosis Rectum: Normal Ano-rectum: Moderate internal hemorrhoids Colon preparation: Excellent, after some irrigation. Milmay Bowel Preparation Scale Right colon; 3 Transverse colon: 3 Left colon; 3 (0 = Unprepared colon segment with mucosa not seen due to solid stool that cannot be cleared. 1 = Portion of mucosa of the colon segment seen, but other areas of the colon segment not well seen due to staining, residual stool and/or opaque liquid. 2 = Minor amount of residual staining, small fragments of stool and/or opaque liquid, but mucosa of colon segment seen well. 3 = Entire mucosa of colon segment seen well with no residual staining, small fragments of stool or opaque liquid) Impression and Post Procedure Diagnosis: Colonoscopy Findings: Two small polyps were removed Moderate diverticulosis seen in the sigmoid colon Moderate hemorrhoids on retroflexed exam. Plan: Repeat Colonoscopy in 3-5 years if polyps are adenomatous and due to a history of adenomatous colon polyps. PATHOLOGY: Diagnosis A. Colon, ascending, polypectomy: Colonic mucosa with prominent lymphoid aggregate. B. Colon, ascending polypectomy site, biopsy: Colonic mucosa with prominent lymphoid aggregate. C. Colon, sigmoid, polypectomy: Hyperplastic mucosal polyp. Comment: Multiple additional levels are examined on 3 blocks TODAY'S VISIT: Patient is here today for follow-up and to discuss colonoscopy results. Patient denies any ill effects from the prep, anesthesia or procedure itself. However patient does reports to have black stools next day after the procedure. Patient reports that this was 1 time episode. Patient denies melena, hematochezia, unintentional weight loss or ribbon like stools. Patient denies any dyspepsia, dysphagia or odynophagia. Patient reports that he takes Metamucil to help her move his bowels on as needed basis. Patient does admit to be constipated at times. Benign polyps found. Patient is taking omeprazole in the morning to help with acid reflux. Patient admits that occasionally he will forget to take it. Patient denies any GI concerning symptoms. [facility] Medical History (Updated 06/04/23 @ 07:50 by Paulo Dorado PA-C) Recurrent UTI Tubular adenoma Hearing loss Elevated cholesterol Surgical History Hx of colonoscopy History of neck surgery History of excision of mass Hx of tonsillectomy History of knee surgery Family History (Updated 06/03/23 @ 14:19 by Paulo Dorado PA-C) Mother Colon cancer, Onset Age: 60 DMII (diabetes mellitus, type 2) Brother Prostate cancer Brother Melanoma Social History (Updated 06/03/23 @ 14:20 by Paulo Dorado PA-C) Housing: Apartment Alcohol intake: never Comment: recently developed at home. Patient Tobacco Use Status: Former Tobacco user Quit Date: 2001 Years Smoked: 32 e-Cigarette/Vaping Use: Never Used Second Hand Smoke Exposure: No Advance Directives Date on File: 10/21/21 service: No Current occupational status: retired Cognitive needs: No Hearing needs: Yes (hearing aid) Vision needs: Yes (Glasses) Review of Systems Const Denies weight gain and Denies weight loss ENT Reports no additional complaints, Denies dysphagia and Denies odynophagia Card Reports no additional complaints Resp Reports no additional complaints GI Denies abdominal pain, Denies belching, Denies melena, Denies bloating, Denies change in bowel habits, Denies dysphagia, Denies excessive flatus, Denies dyspepsia, Denies heartburn, Denies diarrhea, Denies loose stools, Denies nausea, Denies odynophagia and Denies vomiting Reports no additional complaints Musc Reports no additional complaints Neuro Reports no additional complaints Psych Reports no additional complaints Endo Reports no additional complaints Physical Exam Vital Signs: Last Vital Signs Pulse 41 L 05/27/23 09:48 BP 173/79 H 05/27/23 09:48 Pulse Ox 94 05/27/23 09:48 Oxygen Delivery Method Room Air 05/27/23 09:48 BMI result Body Mass Index 42.2 Const General: healthy appearing and no acute distress Nutritional Appearance: obese Orientation/consciousness: patient oriented x3 Resp Effort & Inspection: normal respiratory effort, able to speak in complete sentences, no tracheal deviation and symmetric chest movement Auscultation: clear to auscultation bilaterally Cardio Rate: regular rate GI Inspection: Yes normal to inspection, No distended and Yes obesity Palpation (GI): Soft to palpation, not firm, nontender and No hepatosplenomegaly present Auscultation: normal bowel sounds General: Yes no CVA tenderness Back/Spine/Pelvis Back: no CVA tenderness Skin General skin exam: elasticity normal, turgor normal and dry skin Neuro General: patient oriented x3 Psych Appearance: grossly normal Mental Status: mental status grossly normal Results AMB Urinalysis, Automated UA Leukoctes 0 Natan/uL Last Edit by [employer] on 05/27/23 09:13 UA Nitrite Negative Last Edit by [employer] on 05/27/23 09:13 UA Urobilinogen 0.2 mg/dL Last Edit by [employer] on 05/27/23 09:13 UA Protein 0 mg/dL Last Edit by [employer] on 05/27/23 09:13 UA pH 6.0 Last Edit by [employer] on 05/27/23 09:13 UA Blood 0 Arie/uL Last Edit by [employer] on 05/27/23 09:13 UA Specific [place] 1.025 Last Edit by [employer] on 05/27/23 09:13 UA Ketone Negative Last Edit by [employer] on 05/27/23 09:13 UA Bilirubin 0 mg/dL Last Edit by [employer] on 05/27/23 09:13 UA Glucose 0 mg/dL Last Edit by [employer] on 05/27/23 09:13 Assessment & Plan Assessment & Plan (1) Diverticulosis: Code(s): K57.90 - Diverticulosis of intestine, part unspecified, without perforation or abscess without bleeding Category: Medical (2) Constipation by delayed colonic transit: Code(s): K59.01 - Slow transit constipation Category: Medical (3) Status post colonoscopy: Code(s): Z98.890 - Other specified postprocedural states (4) GERD (gastroesophageal reflux disease): Code(s): K21.9 - Gastro-esophageal reflux disease without esophagitis Qualifiers: Esophagitis presence: esophagitis presence not specified Qualified Code(s): K21.9 - Gastro-esophageal reflux disease without esophagitis Plan Mentioned above in HPI patient had 2 small polyps negative for adenoma. Due to history of adenomatous polyps patient will need to repeat colonoscopy in 5 years, sooner if clinically necessary. Continue MiraLax daily to help him move his bowels. Patient can take omeprazole in the morning half an hour before breakfast. Avoid dietary triggers and late night snacking. Staying upright for minimum 3 hours after meals discussed with patient. He will follow-up in the office in 1 year, sooner on as needed basis. He is agreeable to this plan and verbalizes understanding of instructions. He was given the opportunity to ask questions and all questions answered. Thank you for allowing me to participate in his care Medications: New polyethylene glycol 3350 (Miralax) 17 grams PO DAILY 510 grams 2RF Refilled omeprazole 20 mg PO DAILY 30 caps 3RF K21.9 - Gastro-esophageal reflux disease without esophagitis
== END 2023-05-27 10:17 | disposition home or self-care (01) ==
PROVIDERS: PCP Physician Assistant; Visit Provider Nurse Practitioner Family
DX: K57.90 Diverticulosis of intestine, part unspecified, without perforation or abscess without bleeding (principal); K59.01 Slow transit constipation; Z98.890 Other specified postprocedural states; K21.9 Gastro-esophageal reflux disease without esophagitis
CPT/HCPCS: 99213

== ENCOUNTER 2023-06-03 13:57 | Outpatient (AMB) | payer OTHER, SELFPAY ==
--- NOTE | 2023-06-03 13:57 | MHC.PC.OV ---
Vital Signs 06/03/23 13:58 Height 6 ft Weight 308 lb 4 oz BMI 41.8 BP 148/90 H Blood Pressure Location Lt brachial Position Sitting Pulse 73 Pulse Source Pulse Oximeter Pulse Oximetry (%) 95 Oxygen Delivery Method Room Air Intake Visit Reasons: PE Intake Note: Patient is here today for a physical. 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 Patient has a past medical history significant for cervical spine disease, obesity, hyperlipidemia. Order his urine: Had history of bladder pain when he urinates . Bladder ultrasound and CT abdomen pelvis without any notal bladder concern noted. . Most recent urinalysis without evidence a UTI. Recent PSA normal. Still has an odor to his urine. Been trying to drink more water .. Cervical spine disease:? He is status post cervical spine disc surgery and has been doing fairly well. Still has some numbness sensation in bilateral hands. Did try for repeat MRI of neck though did not fit in the MRI machine. .. Hyperlipidemia:? Patient continues on low-dose statin therapy. Most recent lipid panel showing appropriate total cholesterol and LDL. .. Elevated blood pressure readings:? Noted elevated blood pressure readings today in office, he reports that home blood pressures are more stable. He attributes his high blood pressures to being frustrated with office check-in process. We did have some discussion about possibly needing blood pressure medication and he does agree and understand. He would like to monitor blood pressure for a bit longer. PLAN: Supplied him with a paper Rx for blood pressure cuff monitor Colonoscopy: Done in 2023, multiple polyps found-benign, repeat 3-5 years Vaccines: Up-to-date with tetanus vaccine, needs pneumonia -declines, flu and COVID vaccines. Considering shingles vaccine Laboratory Tests 11/03/21 01/15/22 06/14/22 12:17 10:05 16:22 WBC RBC 5.18 5.31 Hgb Creatinine 0.95 Random Glucose 104 156 H Cholesterol 248 LDL Cholesterol, C alc 172 Prostate Specific Ag Total PSA TSH 2.10 08/16/22 08/18/22 11/21/22 21:30 09:27 09:51 WBC 12.5 H RBC Hgb 16.8 Creatinine 1.03 Random Glucose Cholesterol LDL Cholesterol, C alc Prostate Specific Ag Total PSA 1.64 TSH 05/27/23 09:42 WBC RBC Hgb Creatinine Random Glucose Cholesterol LDL Cholesterol, C alc Prostate Specific Ag 1.25 Total PSA TSH [facility] Medical History (Updated 06/04/23 @ 07:50 by Paulo Dorado PA-C) Recurrent UTI Tubular adenoma Hearing loss Elevated cholesterol Surgical History Hx of colonoscopy History of neck surgery History of excision of mass Hx of tonsillectomy History of knee surgery Family History (Updated 06/03/23 @ 14:19 by Paulo Dorado PA-C) Mother Colon cancer, Onset Age: 60 DMII (diabetes mellitus, type 2) Brother Prostate cancer Brother Melanoma Social History (Updated 06/03/23 @ 14:20 by Paulo Dorado PA-C) Housing: Apartment Alcohol intake: never Comment: recently developed at home. Patient Tobacco Use Status: Former Tobacco user Quit Date: 2001 Years Smoked: 32 e-Cigarette/Vaping Use: Never Used Second Hand Smoke Exposure: No Advance Directives Date on File: 10/21/21 service: No Current occupational status: retired Cognitive needs: No Hearing needs: Yes (hearing aid) Vision needs: Yes (Glasses) Questionnaire PHQ-9 Over the last 2 weeks, how often have you been bothered by any of the following problems? 1. Little interest or pleasure in doing things: not at all 2. Feeling down, depressed, or hopeless: not at all 3. Trouble falling or staying asleep, or sleeping too much: not at all 4. Feeling tired or having little energy: not at all 5. Poor appetite or overeating: not at all 6. Feeling bad about yourself - or that you are a failure or have let yourself or your family down: not at all 7. Trouble concentrating on things, such as reading the newspaper or watching television: not at all 8. Moving or speaking so slowly that other people could have noticed. Or the opposite - being so fidgety or restless that you have been moving around a lot more than usual: not at all 9. Thoughts that you would be better off or of hurting yourself in some way: not at all Total score: 0 Depression Screening Interpretation: Negative Depression Screening Done: Yes [id number] - PHQ-9 Billing: Yes Source: Developed by Drs. Nguyễn Kay, Aparna Young, Jaya Bettencourt and colleagues, with an educational marcia from [email or web address]. Thrive Questionnaire Date Thrive assessed: 06/03/23 I am a: Patient What is your living situation today?: I have a steady place to live Within the past 12 months, did the food you bought not last and you didn't have the money to get more?: Never true Within the past 12 months, did you worry whether your food would run out before you got money to buy more?: Never true Do you have trouble paying for medicines?: No Do you have trouble getting transportation to medical appointments?: No Do you have trouble paying your heating and electricity bill?: No Do you have trouble taking care of your child, family member or friend?: No Do you have trouble with day-to-day activities such as bathing, preparing meals, shopping, managing finances, etc.?: No Are you currently unemployed and looking for a job?: No Are you interested in more education?: No Please select the resources that you would like help with: None Currently or been in a relationship where the following occur: no concerns reported THRIVE Score: 0 AUDIT C Alcohol Use Questionnaire (AUDIT-C) 1. How often do you have a drink containing alcohol?: Never Total Score: 0 YULIANA-7 AMB Questionnaire YULIANA-7 Date YULIANA - 7 assessed: 06/03/23 Feeling nervous, anxious, or on edge: 0 = Not at all Not being able to stop or control worryin = Not at all Worrying too much about different things: 0 = Not at all Trouble relaxin = Not at all Being so restless that it is hard to sit still: 0 = Not at all Becoming easily annoyed or irritable: 0 = Not at all Feeling afraid as if something awful might happen: 0 = Not at all Total YULIANA-7 score (0-4 normal; 5-9 mild; 10-14 moderate; 15-21 severe): 0 Source: Developed by Drs. Nguyễn Kay, Aparna Young, Jaya Bettencourt and colleagues, with an educational marcia from [email or web address]. YULIANA-7 Assessment Billing YULIANA-7 Assessment Tool: YULIANA-7 Assessment [id number] Review of Systems Const Denies body aches, Denies chills, Denies excessive sweating, Denies fatigue, Denies fever(s) and Denies headache(s) Eyes Denies blurry vision ENT Denies dysphagia, Denies vertigo, Denies dizziness, Denies headache(s), Denies hearing loss and Denies tinnitus Card Denies chest pain, Denies chest pain with activity, Denies syncope, Denies irregular heart rhythm and Denies dyspnea Resp Denies chest congestion, Denies cough, Denies hemoptysis, Denies dyspnea and Denies wheezing GI Denies abdominal pain, Denies melena, Denies hematochezia, Denies coffee ground emesis, Denies dysphagia, Denies diarrhea, Denies nausea and Denies vomiting Denies difficulty urinating, Denies dysuria, Denies urinary frequency, Denies urinary hesitancy and Denies urinary urgency Musc Denies arthralgias, Denies limited range of motion, Denies muscle cramps and Denies muscle weakness Skin/Breast Denies rash and Denies skin ulcer Neuro Denies Abnormal speech present, Denies confusion, Denies vertigo, Denies dizziness, Denies syncope, Denies headache(s), Denies memory loss and Denies seizure-like activity Psych Denies anxiety, Denies confusion, Denies depression, Denies memory loss, Denies panic attacks and Denies paranoia Endo Denies excessive sweating, Denies fatigue, Denies flushing, Denies polydipsia and Denies polyuria Aller/Immun Denies wheezing Physical exam (Primary Care) Vital Signs: Last Vital Signs Pulse 73 06/03/23 13:58 BP 148/90 H 06/03/23 13:58 Pulse Ox 95 06/03/23 13:58 Oxygen Delivery Method Room Air 06/03/23 13:58 BMI result Body Mass Index 41.8 BMI Assessment/Plan discussion: High BMI High, discussed plan: lifestyle, weight reduction, dietary and physical activity Tobacco/Smoking Status: Tobacco use Status Tobacco use date assessed 03/02/23 06/03/23 14:02 Patient Tobacco Use Status Former Tobacco user 06/03/23 14:20 e-Cigarette/Vaping Use Never Used 06/03/23 14:20 PHQ-9: PHQ-9 Score PHQ-9: Total score 0 06/03/23 14:25 Depression Screening Interpretation: Negative Thrive Assessment: Date of Thrive Assessment Date Thrive assessed 06/03/23 06/03/23 14:09 Currently or been in a relationship where the following occur: no concerns reported Const General: cooperative, comfortable, no acute distress, alert and awake; No confusion Orientation/consciousness: oriented to person, oriented to place, patient oriented x3 and No confusion HENMT Head: Yes normocephalic Ears: external ears normal and TM's normal bilaterally Face and sinus: No sinus tenderness Mouth: Normal oral and palatal mucosa present and tongue normal Teeth and gingiva: dentition normal and gingiva normal Throat: Yes posterior oropharynx normal, Yes tonsils normal and Yes uvula midline Eyes Conjunctivae: conjunctivae normal Sclerae: sclerae normal Pupils: Equal, round and reactive pupils present EOM: EOMs intact bilaterally Direct Ophthalmoscopy: No no photophobia Neck Neck: Yes no lymphadenopathy, No tender and Yes no JVD Thyroid: Thyroid normal Carotids: no bruits Chest Chest palpation & inspection: no tenderness Resp Effort & Inspection: normal respiratory effort, no audible wheezes, not labored and no stridor Auscultation: no crackles, no rales, no rhonchi and no wheezes Cardio Jugular venous distension: no JVD Rate: regular rate, not bradycardic and not tachycardic Rhythm: regular rhythm Bruits: no carotid bruits Peripheral pulses: Peripheral pulses 2+ throughout GI Inspection: Yes normal to inspection, No abdominal wall ecchymosis and No visible herniation Palpation (GI): Soft to palpation, nontender, no guarding, not rigid and No hepatosplenomegaly present Auscultation: normoactive bowel sounds General: Yes no CVA tenderness Back/Spine/Pelvis Back: no CVA tenderness and No back tenderness Cervical Spine: cervical ROM normal Thoracic/Lumbar Spine: thoracic and lumbar spine normal to inspection, straight leg raise negative bilaterally, No thoraco-lumbar ROM limited and No lumbar spinal tenderness Skin Lesions: no lesions Rashes: no rashes Wounds: no wounds Neuro General: oriented to person, oriented to place, patient oriented x3, CN's II-XI intact bilaterally and No confusion Cranial nerves: Yes Equal, round and reactive pupils present and Yes Normal accommodation reflex present Cognition (Neuro): normal cognition Speech: No Abnormal speech present Gait exam (Neuro): Normal gait present Motor exam (neuro): 5/5 motor strength present throughout Extrem Right upper extremity: full ROM; no cyanosis Left upper extremity: full ROM; no cyanosis Right lower extremity: no edema Left lower extremity: no edema Psych Appearance: grossly normal Mental Status: mental status grossly normal Affect: normal affect Attitude: cooperative Thought process: Normal thought process present Assessment and Plan Assessment & Plan (1) Annual physical exam: Code(s): Z00.00 - Encounter for general adult medical examination without abnormal findings (2) Elevated blood pressure reading: Code(s): R03.0 - Elevated blood-pressure reading, without diagnosis of hypertension Plan: PER HPI PATIENT SEEMS TO HAVE ELEVATED BLOOD PRESSURE READINGS WHEN HE COMES INTO THE OFFICE. HE DOES REPORT FEELING SOMEWHAT FRUSTRATED WITH THE CHECK IN OFFICE PROCEDURE. HE WILL START TO MONITOR HIS BLOOD PRESSURE AT HOME WITH GOAL BLOOD PRESSURE BE BELOW 140/90. WILL CHECK BACK WITH US IN THE OFFICE. (3) Impaired glucose metabolism: Code(s): R73.09 - Other abnormal glucose Plan: Patient's most recent fasting blood sugar slightly elevated. Recent A1c is not in diabetic range. He will continue to work on lifestyle modifications to reduce sugar and carbohydrates in his diet. (4) Cervical stenosis of spinal canal: Code(s): M48.02 - Spinal stenosis, cervical region Plan: Has been experiencing hand numbness in changes in sensitivity. Also reports globus sensation when swallowing. He is status post cervical spine surgery December of 2021 (Dr griggs) Has not reached out to his surgeon. Will get acute x-rays to evaluate hardware placement. Will try for MRI cervical spine to evaluate for worsening canal stenosis or another disc herniation. (5) HTN (hypertension): Code(s): I10 - Essential (primary) hypertension Qualifiers: Hypertension type: primary hypertension Qualified Code(s): I10 - Essential (primary) hypertension Plan: Given paper Rx for blood pressure cuff get Orders: Orders Lipid Panel 06/03/23 E78.2 - Mixed hyperlipidemia Comprehensive [place]. Panel Fast 06/03/23 E78.2 - Mixed hyperlipidemia Hemoglobin A1c 06/03/23 R73.09 - Other abnormal glucose Medications: New miscellaneous medical supply (Blood Pressure Cuff) monitor once per day 1 ea 0RF I10 - Essential (primary) hypertension Patient Instructions: Goals: Monitor blood pressure at home with goal blood pressure to be below 140/90 Barriers: Unwilling to start blood pressure medication at this time. Coding Level of Care Code Est Pt Prev Care >65y(86808) Diagnoses Annual physical exam Z00.00 Elevated blood pressure reading R03.0 Impaired glucose metabolism R73.09 Cervical stenosis of spinal canal M48.02 Primary hypertension I10 Hypertension type: primary hypertension Additional Codes YULIANA-7 Assessment Billing - YULIANA-7 Assessment Tool: YULIANA-7 Assessment [id number] ([id number])
[2023-06-03 13:58] VITALS: BP 148/90; PULSE 73; O2SAT 95; BMI 41.8
== END 2023-06-03 14:45 | disposition home or self-care (01) ==
PROVIDERS: PCP Physician Assistant; Visit Provider Physician Assistant
DX: Z00.00 Encounter for general adult medical examination without abnormal findings (principal); R03.0 Elevated blood-pressure reading, without diagnosis of hypertension; R73.09 Other abnormal glucose; M48.02 Spinal stenosis, cervical region; I10 Essential (primary) hypertension
CPT/HCPCS: 99397

== ENCOUNTER 2023-09-09 13:50 | Outpatient (AMB) | payer OTHER, SELFPAY ==
[2023-09-09 14:01] VITALS: BP 188/102; PULSE 94; O2SAT 6; BMI 41.5
--- NOTE | 2023-09-09 14:01 | A.OFFPC_ITS ---
Vital Signs 09/09/23 14:01 Height 6 ft Weight 306 lb BMI 41.5 BP 188/102 H Blood Pressure Location Lt brachial Position Sitting Pulse 94 Pulse Source Pulse Oximeter Pulse Oximetry (%) 6 L Oxygen Delivery Method Room Air Intake Visit Reasons: f/u blood pressure check Genetic Scientist Required: No Accompanied by: Self / Same As Patient Allergies No Known Allergies Allergy (Verified 09/09/23 14:04) Medication List - Last Reconciled 09/09/23 by Paulo Dorado PA-C atorvastatin 10 mg PO DAILY 90 days miscellaneous medical supply (Blood Pressure Cuff) monitor once per day omeprazole 20 mg PO DAILY polyethylene glycol 3350 (Miralax) 17 grams PO DAILY Tobacco use date assessed: 03/02/23 Fall risk assessment: No Falls in past year Last assessed Fall Risk: 09/09/23 Dental Screening Dental Screen Date: 03/02/23 HPI f/u blood pressure check HPI Details Patient is a 68-year-old male here today for blood pressure check. Today's blood pressure very elevated 180 systolic. He reports that home blood pressures are 140s to 160 systolic. Today he reports feeling bit angry due to the electronic check-in process. He otherwise denies any headaches, chest discomfort or shortness of breath. He does report a episode of bilateral lower extremity edema while vacationing at [facility]. He reports since being home his edema has resolved. He is willing to start low-dose hydrochlorothiazide to better control his blood pressure. [facility] Medical History Recurrent UTI Tubular adenoma Hearing loss Elevated cholesterol Surgical History Hx of colonoscopy History of neck surgery History of excision of mass Hx of tonsillectomy History of knee surgery Family History Mother Colon cancer, Onset Age: 60 DMII (diabetes mellitus, type 2) Brother Prostate cancer Brother Melanoma Social History Housing: Apartment Alcohol intake: never Comment: recently developed at home. Patient Tobacco Use Status: Former Tobacco user Years Smoked: 32 e-Cigarette/Vaping Use: Never Used Second Hand Smoke Exposure: No Advance Directives Date on File: 10/21/21 service: No Current occupational status: retired Cognitive needs: No Hearing needs: Yes (hearing aid) Vision needs: Yes (Glasses) Questionnaire Thrive Questionnaire Date Thrive assessed: 06/03/23 YULIANA-7 AMB Questionnaire YULIANA-7 Date YULIANA - 7 assessed: 06/03/23 Source: Developed by Drs. Nguyễn Kay, Aparna Young, Jaya Bettencourt and colleagues, with an educational marcia from [employer]. Review of Systems Const Denies headache(s) Eyes Denies loss of vision ENT Denies vertigo, Denies dizziness, Denies headache(s) and Denies sore throat Card Denies chest pain, Denies leg edema and Denies lightheadedness Resp Denies cough, Denies hemoptysis and Denies wheezing GI Denies abdominal pain, Denies melena, Denies constipation, Denies diarrhea and Denies vomiting Denies dysuria, Denies urinary frequency and Denies urinary urgency Musc Denies arthralgias, Denies joint swelling, Denies numbness and Denies tingling Neuro Denies Abnormal speech present, Denies behavioral changes, Denies vertigo, Denies dizziness, Denies headache(s), Denies loss of vision, Denies memory loss, Denies numbness and Denies tingling Psych Denies anxiety, Denies behavioral changes, Denies depression, Denies memory loss and Denies panic attacks Edi/Lymph Denies easy bleeding and Denies easy bruising Aller/Immun Denies wheezing Physical exam (Primary Care) Vital Signs: Last Vital Signs Pulse 94 09/09/23 14:01 BP 188/102 H 09/09/23 14:01 Pulse Ox 6 L 09/09/23 14:01 Oxygen Delivery Method Room Air 09/09/23 14:01 BMI result Body Mass Index 41.5 Tobacco/Smoking Status: Tobacco use Status Tobacco use date assessed 03/02/23 09/09/23 14:02 Patient Tobacco Use Status Former Tobacco user 09/09/23 14:02 e-Cigarette/Vaping Use Never Used 09/09/23 14:02 Thrive Assessment: Date of Thrive Assessment Date Thrive assessed 06/03/23 09/09/23 14:02 Const General: healthy appearing, no acute distress, alert and awake Nutritional Appearance: well nourished Orientation/consciousness: oriented to person, oriented to place and oriented to time HENMT Ears: TM's normal bilaterally General nose exam: Normal nasal mucous membranes and turbinates present Eyes Conjunctivae: conjunctivae normal Sclerae: sclerae normal Pupils: Equal, round and reactive pupils present Neck Neck: Yes no lymphadenopathy and Yes no JVD Thyroid: Thyroid normal Carotids: no bruits Resp Effort & Inspection: normal respiratory effort and not tachypneic Auscultation: no crackles, no rales, no rhonchi and no wheezes Cardio Rate: regular rate Rhythm: regular rhythm Heart sounds: no murmurs and normal S1 and S2 GI Palpation (GI): Soft to palpation, nontender, no hepatomegaly and no splenomegaly Auscultation: normal bowel sounds Skin General skin exam: no rashes or lesions noted and dry skin Neuro General: oriented to person, oriented to place and oriented to time Cranial nerves: Yes Equal, round and reactive pupils present Speech: No Abnormal speech present Gait exam (Neuro): Normal gait present Motor exam (neuro): no tremor noted Extrem Right upper extremity: full ROM Left upper extremity: full ROM Right lower extremity: full ROM; no edema Left lower extremity: full ROM; no edema Psych Mental Status: mental status grossly normal Speech and movement: Normal speech and movement present Affect: normal affect Attitude: cooperative Thought process: Normal thought process present Assessment and Plan Assessment & Plan (1) HTN (hypertension): Code(s): I10 - Essential (primary) hypertension Qualifiers: Hypertension type: primary hypertension Qualified Code(s): I10 - Essential (primary) hypertension Plan: Noted very elevated blood pressure today in office. He reports he is angry at the electronic check-in. Nonetheless blood pressures have been slightly elevated even at home and other office visits. Will start low-dose hydrochlorothiazide and check up with patient in 4 weeks to evaluate blood pressure. Medications: New hydrochlorothiazide 12.5 mg PO DAILY 30 tabs 1RF I10 - Essential (primary) hypertension Coding Level of Care Code Est Pt Level 3 (33033) Diagnoses Primary hypertension I10 Hypertension type: primary hypertension
== END 2023-09-09 14:32 | disposition home or self-care (01) ==
PROVIDERS: PCP Physician Assistant; Visit Provider Physician Assistant
DX: I10 Essential (primary) hypertension (principal)
CPT/HCPCS: 99213

== ENCOUNTER 2023-09-16 07:50 | Outpatient (REF) | payer OTHER, SELFPAY ==
[2023-09-16 09:33] LABS: Estimated Average Glucose 105 mg/dL; Hemoglobin A1c % 5.3 % (<6.0)
[2023-09-16 09:44] LABS: Alanine Aminotransferase 22 U/L (0-40); Albumin Level 4.3 g/dL (3.5-5.0); Alkaline Phosphatase 77 U/L (39-117); Anion Gap 11 (12-20); Aspartate Amino Transferase 22 U/L (5-37); Blood Urea Nitrogen 16 mg/dL (9-16); Calcium 9.5 mg/dL (8.4-10.2); Carbon Dioxide 28 mmol/L (22-29); Chloride 103 mmol/L (96-108); Cholesterol 172 mg/dL (<200); Estimated Glomerular Filt Rate > 60; Glucose Fasting 113 mg/dL (60-99); HDL Cholesterol 45 mg/dL (>40); LDL Cholesterol Calculated 109 mg/dL (<100); Potassium 3.8 mmol/L (3.3-5.1); Sodium 138 mmol/L (135-145); Total Protein 7.1 g/dL (6.5-8.0); Triglycerides 91 mg/dL (<150)
== END 2023-09-16 07:51 | disposition home or self-care (01) ==
LOC: HO.LAB 07:50
PROVIDERS: PCP Physician Assistant; Visit Provider Physician Assistant
DX: R73.09 Other abnormal glucose (principal); E78.2 Mixed hyperlipidemia
CPT/HCPCS: 36415; 80053; 80061; 83036

== ENCOUNTER 2023-10-14 08:46 | Outpatient (AMB) | payer MEDICARE, MEDICAID, SELFPAY ==
[2023-10-14 09:05] VITALS: BP 152/68; PULSE 52; O2SAT 95; BMI 41.4
--- NOTE | 2023-10-14 09:05 | MHC.PC.OV ---
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 At last visit we discussed his elevated blood pressure readings at multiple MD visits. He was willing to start hydrochlorothiazide 12.5 mg and try to monitor his blood pressure more regularly at home. He reports he does not trust his blood pressure readings from his home Blood pressure as they continue read high. Today in office blood pressure has improved though still slightly elevated. -Concern--> reports he still has some difficulty passing stool. He has been using a [id number] stool softener on daily basis which has helped to regulate his bowel movements. Has had colonoscopies in the past and polyps have been found though no significant blockages. He did have a CT of his abdomen pelvis in August of 2022 that did show some collapsing in his rectum. Of note most recent PSA is normal. Has also noted a rash over his left upper chest to which he believes he has perhaps been bitten by a bug. Reports the rash is getting better though is concerned. Will supply patient with the topical steroid placed locally in the area. [facility] Medical History (Updated 10/14/23 @ 09:30 by Paulo Dorado PA-C) Constipation Recurrent UTI Tubular adenoma Hearing loss Elevated cholesterol Surgical History Hx of colonoscopy History of neck surgery History of excision of mass Hx of tonsillectomy History of knee surgery Family History Mother Colon cancer, Onset Age: 60 DMII (diabetes mellitus, type 2) Brother Prostate cancer Brother Melanoma Social History Housing: Apartment Alcohol intake: never Comment: recently developed at home. Patient Tobacco Use Status: Former Tobacco user Years Smoked: 32 e-Cigarette/Vaping Use: Never Used Second Hand Smoke Exposure: No Advance Directives Date on File: 10/21/21 service: No Current occupational status: retired Cognitive needs: No Hearing needs: Yes (hearing aid) Vision needs: Yes (Glasses) Questionnaire Thrive Questionnaire Date Thrive assessed: 06/03/23 YULIANA-7 AMB Questionnaire YULIANA-7 Date YULIANA - 7 assessed: 06/03/23 Source: Developed by Drs. Nguyễn Kay, Aparna Young, Jaya Bettencourt and colleagues, with an educational marcia from [employer]. Review of Systems Const Denies headache(s) Eyes Denies loss of vision ENT Denies vertigo, Denies dizziness, Denies headache(s) and Denies sore throat Card Denies chest pain, Denies leg edema and Denies lightheadedness Resp Denies cough, Denies hemoptysis and Denies wheezing GI Denies abdominal pain, Denies melena, Reports constipation, Denies diarrhea and Denies vomiting Denies dysuria, Denies urinary frequency and Denies urinary urgency Musc Denies arthralgias, Denies joint swelling, Denies numbness and Denies tingling Neuro Denies Abnormal speech present, Denies behavioral changes, Denies vertigo, Denies dizziness, Denies headache(s), Denies loss of vision, Denies memory loss, Denies numbness and Denies tingling Psych Denies anxiety, Denies behavioral changes, Denies depression, Denies memory loss and Denies panic attacks Edi/Lymph Denies easy bleeding and Denies easy bruising Aller/Immun Denies wheezing Physical exam (Primary Care) Vital Signs: Last Vital Signs Pulse 52 10/14/23 09:05 BP 152/68 H 10/14/23 09:05 Pulse Ox 95 10/14/23 09:05 Oxygen Delivery Method Room Air 10/14/23 09:05 BMI result Body Mass Index 41.4 Tobacco/Smoking Status: Tobacco use Status Tobacco use date assessed 03/02/23 10/14/23 09:12 Patient Tobacco Use Status Former Tobacco user 10/14/23 09:12 e-Cigarette/Vaping Use Never Used 10/14/23 09:12 Thrive Assessment: Date of Thrive Assessment Date Thrive assessed 06/03/23 10/14/23 09:12 Const General: healthy appearing, no acute distress, alert and awake Nutritional Appearance: well nourished Orientation/consciousness: oriented to person, oriented to place and oriented to time HENMT Ears: TM's normal bilaterally General nose exam: Normal nasal mucous membranes and turbinates present Eyes Conjunctivae: conjunctivae normal Sclerae: sclerae normal Pupils: Equal, round and reactive pupils present Neck Neck: Yes no lymphadenopathy and Yes no JVD Thyroid: Thyroid normal Carotids: no bruits Resp Effort & Inspection: normal respiratory effort and not tachypneic Auscultation: no crackles, no rales, no rhonchi and no wheezes Cardio Rate: regular rate Rhythm: regular rhythm Heart sounds: no murmurs and normal S1 and S2 GI Palpation (GI): Soft to palpation, nontender, no hepatomegaly and no splenomegaly Auscultation: normal bowel sounds Skin General skin exam: no rashes or lesions noted and dry skin Neuro General: oriented to person, oriented to place and oriented to time Cranial nerves: Yes Equal, round and reactive pupils present Speech: No Abnormal speech present Gait exam (Neuro): Normal gait present Motor exam (neuro): no tremor noted Extrem Right upper extremity: full ROM Left upper extremity: full ROM Right lower extremity: full ROM; no edema Left lower extremity: full ROM; no edema Psych Mental Status: mental status grossly normal Speech and movement: Normal speech and movement present Affect: normal affect Attitude: cooperative Thought process: Normal thought process present Assessment and Plan Assessment & Plan (1) HTN (hypertension): Code(s): I10 - Essential (primary) hypertension Qualifiers: Hypertension type: primary hypertension Qualified Code(s): I10 - Essential (primary) hypertension Plan: Patient's blood pressure much improved from previous. He does not trust his blood pressure cuff at home and will get a new blood pressure cuff. Will continue on current dose of hydrochlorothiazide for now. Goal blood pressure to be below 140/90 (2) Dermatitis: Code(s): L30.9 - Dermatitis, unspecified Plan: Has noted an erythematous rash over the left upper aspect of his chest. 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 Will supply patient with a topical steroid to place on the localized area. (3) Constipation: Code(s): K59.00 - Constipation, unspecified Qualifiers: Constipation type: slow transit constipation Qualified Code(s): K59.01 - Slow transit constipation Plan: Patient continues to difficulty with constipation to which he uses a stool softener on a daily basis which has been helpful on regulating him. Will supply patient with lactulose to use for when he does not have a bowel movement in several days. Medications: New triamcinolone acetonide 0.1% 1 appl topical DAILY 30 grams 0RF 30 days L30.9 - Dermatitis, unspecified lactulose 20 grams (30 mL) PO BID PRN 900 mL 0RF laxative effect 15 days K59.01 - Slow transit constipation Refilled atorvastatin 10 mg PO DAILY 90 tabs 1RF 90 days E78.5 - Hyperlipidemia, unspecified Coding Level of Care Code Est Pt Level 4 (15776) Diagnoses Primary hypertension I10 Hypertension type: primary hypertension Dermatitis L30.9 Slow transit constipation K59.01 Constipation type: slow transit constipation
== END 2023-10-14 09:38 | disposition home or self-care (01) ==
PROVIDERS: PCP Physician Assistant; Visit Provider Physician Assistant
DX: I10 Essential (primary) hypertension (principal); L30.9 Dermatitis, unspecified; K59.01 Slow transit constipation
CPT/HCPCS: 99214

== ENCOUNTER 2023-12-08 13:57 | Outpatient (REF) | payer MEDICARE, MEDICAID, SELFPAY ==
--- NOTE | ~2023-12-08 | XR_ITS ---
EXAMINATION: XR HAND, LEFT CLINICAL INFORMATION: Pain. COMPARISON: None available. TECHNIQUE: PA, lateral, and oblique views of the left hand. FINDINGS: Acute cortical disruption or malalignment. No lytic or blastic lesions. No subcutaneous emphysema. Nonspecific well-corticated 3 mm calcification in the soft tissues first carpometacarpal joint. XR/XR hand LT 2V IMPRESSION: No acute fracture or dislocation. Electronically signed by: John Guo MD 12/24/2023 01:44 PM EST RP
== END 2023-12-08 13:58 | disposition home or self-care (01) ==
LOC: HO.XRAY 13:57
PROVIDERS: PCP Physician Assistant; Visit Provider Physician Assistant
DX: M79.645 Pain in left finger(s) (principal)
CPT/HCPCS: 73120

== ENCOUNTER → 2023-12-08 14:04 | Outpatient (BNV) | payer MEDICARE, MEDICAID, SELFPAY | PROVIDERS: PCP Physician Assistant; Visit Provider Radiology Diagnostic Radiology | DX: M79.642 Pain in left hand (principal) | CPT/HCPCS: 73120 ==

== ENCOUNTER 2023-12-30 08:22 | Outpatient (AMB) | payer MEDICARE, MEDICAID, SELFPAY ==
--- NOTE | 2023-12-30 08:23 | A.OFFVIS_ITS ---
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 Dorado. He has a past medical history of tubular adenoma, hearing loss, hypercholesteremia and lipoma of forehead. He presents to the office today for a follow-up. In discussion with the patient today he reports to be doing and feeling well. He discusses feeling his urination has improved now that he has regular bowel movements. He does continue to report concentrated urine. In office urinalysis results reviewed with the patient today pH 5.5. We discussed importance of adequate hydration in relation to urinary symptoms as well as overall health and well-being. PVR 40 mL. He otherwise denies urinary urgency, urinary frequency, incontinence, nocturia, hematuria, dysuria, changes to urinary stream, flank pain, fever, and or chills. He is happy with his current voiding parameters. PSAs are as follows: 07/08 3.4, 12/08 1.6, 06/09 1.3 Discussed at length importance of drinking plenty of water daily. He otherwise denies any issues or concerns at this time. Discussed at length constipation relation to recurrent urinary tract infections however patient reports to be on a bowel regimen and has since been having normal bowel movements and has not experienced any UTI like symptoms. He discusses his upcoming appointment for his ongoing left wrist and thumb pain he has been experiencing. He otherwise offers no other issues or concerns at this time. [facility] Medical History Constipation Recurrent UTI Tubular adenoma Hearing loss Elevated cholesterol Surgical History Hx of colonoscopy History of neck surgery History of excision of mass Hx of tonsillectomy History of knee surgery Family History Mother Colon cancer, Onset Age: 60 DMII (diabetes mellitus, type 2) Brother Prostate cancer Brother Melanoma Social History Housing: Apartment Alcohol intake: never Comment: recently developed at home. Patient Tobacco Use Status: Former Tobacco user Years Smoked: 32 e-Cigarette/Vaping Use: Never Used Second Hand Smoke Exposure: No Advance Directives Date on File: 10/21/21 service: No Current occupational status: retired Cognitive needs: No Hearing needs: Yes (hearing aid) Vision needs: Yes (Glasses) Review of Systems Const Reports as per HPI Eyes Reports no additional complaints ENT Reports as per HPI Card Reports as per HPI Resp Reports no additional complaints GI Reports as per HPI Reports as per HPI Musc Reports no additional complaints Neuro Reports no additional complaints Psych Reports no additional complaints Endo Reports no additional complaints Edi/Lymph Reports no additional complaints Aller/Immun Reports no additional complaints Physical Exam Const General: cooperative, healthy appearing, comfortable, no acute distress, well developed, alert and awake Nutritional Appearance: overweight Orientation/consciousness: patient oriented x3 Limitations: no limitations HEENT Head: Yes normal to inspection, Yes normocephalic and Yes atraumatic Ears: hearing grossly normal bilaterally Eyes General: appearance normal, both eyes and all related structures Neck Neck: Yes normal visual inspection and Yes trachea midline Chest Chest palpation & inspection: normal inspection of the chest Resp Effort & Inspection: normal respiratory effort and able to speak in complete sentences Cardio Rate: regular rate GI Inspection: Yes normal to inspection General: Yes no CVA tenderness Back/Spine/Pelvis Back: no CVA tenderness Skin General skin exam: no rashes or lesions noted Neuro General: patient oriented x3 Extrem General: Yes normal to inspection Psych Appearance: grossly normal and well kempt Mental Status: mental status grossly normal Speech and movement: Normal speech and movement present and Clear speech present Affect: normal affect Attitude: cooperative Thought process: Normal thought process present Thought content: Normal thought content present Insight: Fair insight present (Psych) Judgement: Fair judgement present (Psych) Office Procedures Post Void Residual Post Residual Void Post Void Residual (PVR): 40 51202-Tsop Void Residual by ultrasound Results AMB Urinalysis, Automated UA Leukoctes 0 Natan/uL Last Edit by [employer] on 12/30/23 08:38 UA Nitrite Last Edit by [employer] on 12/30/23 08:38 UA Urobilinogen 0.2 mg/dL Last Edit by [employer] on 12/30/23 08:38 UA Protein 0 mg/dL Last Edit by [employer] on 12/30/23 08:38 UA pH 5.5 Last Edit by [employer] on 12/30/23 08:38 UA Blood 0 Arie/uL Last Edit by [employer] on 12/30/23 08:38 UA Specific [place] 1.020 Last Edit by [employer] on 12/30/23 08:38 UA Ketone Last Edit by [employer] on 12/30/23 08:38 UA Bilirubin 0 mg/dL Last Edit by [employer] on 12/30/23 08:38 UA Glucose 0 mg/dL Last Edit by [employer] on 12/30/23 08:38 Results Reviewed Results Reviewed: Laboratory Last Values Urine pH (Auto) 5.5 12/30/23 08:28 Specific [place] (Auto) 1.020 12/30/23 08:28 Urine Protein (Auto) 0 mg/dL 12/30/23 08:28 Glucose (UA)(Auto) 0 mg/dL 12/30/23 08:28 Urine Blood (Auto) 0 Arie/uL 12/30/23 08:28 Urine Bilirubin (Auto) 0 mg/dL 12/30/23 08:28 Urine Urobilinogen (Auto) 0.2 mg/dL 12/30/23 08:28 Leukocyte Esterase (Auto) 0 Natan/uL 12/30/23 08:28 Assessment & Plan Assessment & Plan (1) Foul smelling urine: Code(s): R82.90 - Unspecified abnormal findings in urine Category: Medical (2) Incomplete bladder emptying: Code(s): R33.9 - Retention of urine, unspecified Category: Medical Plan In office urinalysis results reviewed with the patient today; as noted above. Discussed, educated, and stressed the importance of adequate hydration in relation to urinary symptoms as well as overall health and well-being. Recent PSA results reviewed with the patient today; as noted above. Patient reports be happy with current voiding parameters. Will obtain PSA in 1 year. Follow-up in 1 year with PSA and PVR; or sooner with any issues, concerns, and or questions. Orders: Orders AMB Post Void Residual by ultrasound Today R39.89 - Other symptoms and signs involving the genitourinary system AMB Urinalysis Automated Today Z13.9 - Encounter for screening, unspecified Patient Instructions: The patient had an opportunity to ask questions regarding the treatment plan. All questions were answered. Physical exam, labs, and imaging were discussed and reviewed in detail. As well as risks, benefits, and discussion of treatment choices. No major barriers to understanding were identified. The patient expressed understanding and agreement with the above treatment plan. The patient was made aware they should contact our office by phone for worsening of their current condition, the appearance of new symptoms, or with any questions or concerns. Compliance is encouraged with any medications and follow up testing that is ordered. It is a privilege to be allowed the opportunity to participate in? your urological care.? Again, if you have any questions or concerns If you have any questions or concerns please do not hesitate to contact me. The office is [phone]. This note is constructed using voice recognition software. While every effort has been made to ensure accuracy servicing manager errors may have been included. Yours sincerely, SABINE Valle Coding Level of Care Code Est Pt Level 3 (40687) Diagnoses Foul smelling urine R82.90 Incomplete bladder emptying R33.9 CPT Codes Post Residual Void - PVR CPT Code: 05152-Hpde Void Residual by ultrasound ([id number])
== END 2023-12-30 08:56 | disposition home or self-care (01) ==
PROVIDERS: PCP Physician Assistant; Visit Provider Nurse Practitioner Family
DX: R82.90 Unspecified abnormal findings in urine (principal); R33.9 Retention of urine, unspecified; Z13.9 Encounter for screening, unspecified
CPT/HCPCS: 99213

== ENCOUNTER → 2023-12-30 08:22 | Outpatient (BNVA) | payer MEDICARE, MEDICAID, SELFPAY | PROVIDERS: PCP Physician Assistant; Visit Provider Nurse Practitioner Family | DX: R82.90 Unspecified abnormal findings in urine (principal); R33.9 Retention of urine, unspecified | CPT/HCPCS: 51798; 81003; 99212 ==

== ENCOUNTER 2024-01-18 08:38 | Outpatient (AMB) | payer MEDICARE, MEDICAID, SELFPAY ==
--- NOTE | 2024-01-18 08:40 | A.OFFVIS_ITS ---
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 Patient reports activities such as driving, unlocking doors, and buttoning his clothes cause extreme pain at the base of his left thumb. Expresses it starts at MCP and radiates into his wrist. Reports aching all the time of his bilateral hands however the thumb pain is unbearable. 1st, 2nd, 3rd fingers of B/L hands have numbness/tingling. 3 years ago hx of vertebrae fusion in neck in [facility]. Has CT scan on 02/01/24 for hand. Allergies No Known Allergies Allergy (Verified 01/18/24 08:48) HPI HPI COMPENSATION SUPERVISOR: left thumb pain: Details: Patient is a 68-year-old male who presents for evaluation of left thumb pain, ongoing for several months. The patient states that this pain is primarily located at the base of his left thumb and radiates down into the wrist and up into the finger. The patient states that this pain is occasionally located over the radial styloid, but is primarily on the palmar aspect of the hand at the level of the basal joint. The patient states that this pain makes it difficult for him to open a jar or door. Patient states that he does have x-rays done previously, which revealed no fracture or acute bony abnormality. No other [facility] complaints or concerns at this time. [facility] Medical History Constipation Recurrent UTI Tubular adenoma Hearing loss Elevated cholesterol Surgical History Hx of colonoscopy History of neck surgery History of excision of mass Hx of tonsillectomy History of knee surgery Family History Mother Colon cancer, Onset Age: 60 DMII (diabetes mellitus, type 2) Brother Prostate cancer Brother Melanoma Social History Housing: Apartment Alcohol intake: never Comment: recently developed at home. Patient Tobacco Use Status: Former Tobacco user Years Smoked: 32 e-Cigarette/Vaping Use: Never Used Second Hand Smoke Exposure: No Advance Directives Date on File: 10/21/21 service: No Current occupational status: retired Cognitive needs: No Hearing needs: Yes (hearing aid) Vision needs: Yes (Glasses) Physical Exam Vital Signs: BMI result Body Mass Index 40.1 Extrem Other: Patient is alert, oriented, and in no acute distress. Neuro: Diminished sensation of the tips of the digits in the median nerve distribution of bilateral hands at this time, but patient states this is due to previous surgeries and issues in the cervical spine Vascular: Cap refill brisk Pain: Negative Jennifer on the left Positive CMC grind on the left Minimal tenderness to palpation of the left radial styloid ROM: Patient is able to make a closed fist and extend all digits of the left hand fully Skin: No lacerations or abrasions. General: No ecchymosis, erythema, or evidence of infection. Psych: Appears grossly normal Affect normal Attitude cooperative Office Procedures Joint Inj/Aspir; Non-Pain Clin Joint Injection/Drain Prep: site was prepped using aseptic technique and injection warnings given Procedure: The patient tolerated the procedure well, but had some pain with the injection and there was some relief with the local anesthesia Elbows, Wrist, Hands, Details: Left basal joint injection Wrist injection Medium Joint : Left Wrist Hand injection Medium joint : Left Hand Coding Procedure code (CPT) selection complete Results Reviewed Results Reviewed: X-rays obtained i previously and independently reviewed by me, Rufus Flores, demonstrate [id number] degenerative changes of the basal joint of the left thumb. no fracture or acute bony abnormality noted. Assessment & Plan Assessment & Plan (1) Arthritis of carpometacarpal (CMC) joint of left thumb: Code(s): M18.12 - Unilateral primary osteoarthritis of first carpometacarpal joint, left hand Category: Medical Plan 1. Basal joint arthritis of the left thumb The risks and benefits of a steroid injection including but not limited to risk of damage to blood vessels, nerve, tendon, infection, skin bleaching, persistent or worsening pain, and failure to improve symptoms were discussed with the patient and they wish to proceed with the steroid injection. Once consent was obtained the skin over the dorsum of the left basal joint was aseptically prepped. The joint was then injected with a combination of 1 mL of (40 mg/ml} Depo-Medrol and 1% plain Lidocaine. The patient appears to have tolerated the procedure well and with no complications. He had good early relief before leaving clinic today. He knows that they may not have another steroid injection into this joint for least 4 months. Patient will follow-up as needed with any acute concerns Coding Level of Care Code New Pt Level 3 (19592) Diagnoses Arthritis of carpometacarpal (CMC) joint of left thumb M18.12 CPT Codes Elbows, Wrist, Hands, - Wrist injection Medium Joint : Left Wrist ([id number]) Elbows, Wrist, Hands, - Hand injection Medium joint 56326: Left Hand ([id number])
[2024-01-18 08:48] VITALS: BMI 40.1
== END 2024-01-18 09:27 | disposition home or self-care (01) ==
PROVIDERS: PCP Physician Assistant
DX: M18.12 Unilateral primary osteoarthritis of first carpometacarpal joint, left hand (principal)
CPT/HCPCS: 20600; 99203

== ENCOUNTER → 2024-01-18 08:38 | Outpatient (BNVA) | payer MEDICARE, MEDICAID, SELFPAY | PROVIDERS: PCP Physician Assistant | DX: M18.12 Unilateral primary osteoarthritis of first carpometacarpal joint, left hand (principal); R20.0 Anesthesia of skin; R20.2 Paresthesia of skin | CPT/HCPCS: 20600; 99202; J1010; J2003 ==

== ENCOUNTER 2024-01-19 09:27 | Outpatient (AMB) | payer MEDICARE, MEDICAID, SELFPAY ==
[2024-01-19 09:30] VITALS: BP 142/90; PULSE 70; O2SAT 98; BMI 40.8
--- NOTE | 2024-01-19 09:30 | A.OFFPC_ITS ---
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 Accompanied by: Self / Same As Patient Allergies No Known Allergies Allergy (Verified 01/19/24 09:41) Medication List - Last Reconciled 01/19/24 by Paulo Dorado PA-C atorvastatin 10 mg PO DAILY 90 days hydrochlorothiazide 12.5 mg PO DAILY lactulose 20 grams (30 mL) PO BID PRN 15 days miscellaneous medical supply (Blood Pressure Cuff) monitor once per day omeprazole 20 mg PO DAILY triamcinolone acetonide 0.1% 1 appl topical DAILY 30 days Tobacco use date assessed: 03/02/23 Fall risk assessment: No Falls in past year Last assessed Fall Risk: 01/19/24 Dental Screening Dental Screen Date: 03/02/23 HPI 3 mo f/u HTN HPI Details Patient is a 68-year-old male here today for a routine annual physical.? Patient has a past medical history significant for cervical spine disease, obesity, hyperlipidemia. Arthritis of the left thumb: Has followed up with orthopedic hand surgeon and got a cortisone injection in his hand. He reports it has not taken effect yet though will wait 3 weeks and call orthopedics back for possible repeat injection with x-ray guidance. .. Cervical spine disease:? He is status post cervical spine disc surgery and has been doing fairly well. Still has some numbness sensation in bilateral hands. .. Hyperlipidemia:? Patient continues on low-dose statin therapy. Most recent lipid panel showing appropriate total cholesterol and LDL. .. Hypertension:? Pressure today in office remains slightly elevated. He admits to being in consistent with the use of hydrochlorothiazide. [facility] Medical History (Updated 01/19/24 @ 10:06 by Paulo Dorado PA-C) Diverticulosis Cervical radiculopathy at C6 Recurrent UTI Tubular adenoma Hearing loss Elevated cholesterol Surgical History Hx of colonoscopy History of neck surgery History of excision of mass Hx of tonsillectomy History of knee surgery Family History Mother Colon cancer, Onset Age: 60 DMII (diabetes mellitus, type 2) Brother Prostate cancer Brother Melanoma Social History Housing: Apartment Alcohol intake: never Comment: recently developed at home. Patient Tobacco Use Status: Former Tobacco user Years Smoked: 32 e-Cigarette/Vaping Use: Never Used Second Hand Smoke Exposure: No Advance Directives Date on File: 10/21/21 service: No Current occupational status: retired Cognitive needs: No Hearing needs: Yes (hearing aid) Vision needs: Yes (Glasses) Questionnaire Thrive Questionnaire Date Thrive assessed: 06/03/23 YULIANA-7 AMB Questionnaire YULIANA-7 Date YULIANA - 7 assessed: 06/03/23 Source: Developed by Drs. Nguyễn Kay, Aparna Young, Jaya Bettencourt and colleagues, with an educational marcia from [employer]. Review of Systems Const Denies headache(s) Eyes Denies loss of vision ENT Denies vertigo, Denies dizziness, Denies headache(s) and Denies sore throat Card Denies chest pain, Denies leg edema and Denies lightheadedness Resp Denies cough, Denies hemoptysis and Denies wheezing GI Denies abdominal pain, Denies melena, Denies constipation, Denies diarrhea and Denies vomiting Denies dysuria, Denies urinary frequency and Denies urinary urgency Musc Denies arthralgias, Denies joint swelling, Denies numbness and Denies tingling Neuro Denies Abnormal speech present, Denies behavioral changes, Denies vertigo, Denies dizziness, Denies headache(s), Denies loss of vision, Denies memory loss, Denies numbness and Denies tingling Psych Denies anxiety, Denies behavioral changes, Denies depression, Denies memory loss and Denies panic attacks Edi/Lymph Denies easy bleeding and Denies easy bruising Aller/Immun Denies wheezing Physical exam (Primary Care) Vital Signs: Last Vital Signs Pulse 70 01/19/24 09:30 BP 142/90 H 01/19/24 09:30 Pulse Ox 98 01/19/24 09:30 Oxygen Delivery Method Room Air 01/19/24 09:30 BMI result Body Mass Index 40.8 Tobacco/Smoking Status: Tobacco use Status Tobacco use date assessed 03/02/23 01/19/24 09:38 Patient Tobacco Use Status Former Tobacco user 01/19/24 09:38 e-Cigarette/Vaping Use Never Used 01/19/24 09:38 Thrive Assessment: Date of Thrive Assessment Date Thrive assessed 06/03/23 01/19/24 09:38 Const General: healthy appearing, no acute distress, alert and awake Nutritional Appearance: well nourished Orientation/consciousness: oriented to person, oriented to place and oriented to time HENMT Ears: TM's normal bilaterally General nose exam: Normal nasal mucous membranes and turbinates present Eyes Conjunctivae: conjunctivae normal Sclerae: sclerae normal Pupils: Equal, round and reactive pupils present Neck Neck: Yes no lymphadenopathy and Yes no JVD Thyroid: Thyroid normal Carotids: no bruits Resp Effort & Inspection: normal respiratory effort and not tachypneic Auscultation: no crackles, no rales, no rhonchi and no wheezes Cardio Rate: regular rate Rhythm: regular rhythm Heart sounds: no murmurs and normal S1 and S2 GI Palpation (GI): Soft to palpation, nontender, no hepatomegaly and no splenomegaly Auscultation: normal bowel sounds Skin General skin exam: no rashes or lesions noted and dry skin Neuro General: oriented to person, oriented to place and oriented to time Cranial nerves: Yes Equal, round and reactive pupils present Speech: No Abnormal speech present Gait exam (Neuro): Normal gait present Motor exam (neuro): no tremor noted Extrem Right upper extremity: full ROM Left upper extremity: full ROM Right lower extremity: full ROM; no edema Left lower extremity: full ROM; no edema Psych Mental Status: mental status grossly normal Speech and movement: Normal speech and movement present Affect: normal affect Attitude: cooperative Thought process: Normal thought process present Coding Level of Care Code Est Pt Level 4 (28735) Diagnoses Arthritis of carpometacarpal (CMC) joint of left thumb M18.12 Primary hypertension I10 Hypertension type: primary hypertension Lumbar spine pain M54.50 Mixed hyperlipidemia E78.2 Hyperlipidemia type: mixed hyperlipidemia Assessment & Plan Assessment & Plan (1) Arthritis of carpometacarpal (CMC) joint of left thumb: Code(s): M18.12 - Unilateral primary osteoarthritis of first carpometacarpal joint, left hand Category: Medical Plan: X-rays of left hand showing moderate to severe carpometacarpal arthritis. Has followed up with Orthopedics and did receive cortisone injection in his left. He is awaiting to see if there is any benefit. He will consider x-ray guided injection (2) HTN (hypertension): Code(s): I10 - Essential (primary) hypertension Category: Medical Qualifiers: Hypertension type: primary hypertension Qualified Code(s): I10 - Essential (primary) hypertension Plan: Patient's blood pressure slightly elevated today in office. He is in consistent with using hydrochlorothiazide. He promises to be more consistent with the use of his blood pressure medication. Goal blood pressure to be below 140/90 (3) Lumbar spine pain: Code(s): M54.50 - Low back pain, unspecified Category: Medical Plan: He does report having some low back pain and some weakness in his legs at times. 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 He is not interested in workup on his lower back at this time and will like to hold off this for now. (4) HLD (hyperlipidemia): Code(s): E78.5 - Hyperlipidemia, unspecified Category: Medical Qualifiers: Hyperlipidemia type: mixed hyperlipidemia Qualified Code(s): E78.2 - Mixed hyperlipidemia Plan: Patient's most recent lipid panel showing much improved total cholesterol and LDL. He will continue on atorvastatin 10 mg with goal LDL to remain below 130 Orders: Orders Microalbumin, Random (w Creat) Today I10 - Essential (primary) hypertension Lipid Panel Today E78.2 - Mixed hyperlipidemia Comprehensive [place]. Panel Fast Today I10 - Essential (primary) hypertension Complete Blood Count no Diff Today I10 - Essential (primary) hypertension Prostate Specific Antigen Scr Today I10 - Essential (primary) hypertension, Z12.5 - Encounter for screening for malignant neoplasm of prostate Medications: New diclofenac sodium 3% 1 appl topical BID 4 weeks 100 grams 0RF M18.12 - Unilateral primary osteoarthritis of first carpometacarpal joint, left hand Changed From hydrochlorothiazide 12.5 mg PO DAILY 30 tabs 0RF I10 - Essential (primary) hypertension To hydrochlorothiazide 12.5 mg PO DAILY 90 days 90 tabs 1RF I10 - Essential (primary) hypertension
== END 2024-01-19 10:03 | disposition home or self-care (01) ==
PROVIDERS: PCP Physician Assistant; Visit Provider Physician Assistant
DX: M18.12 Unilateral primary osteoarthritis of first carpometacarpal joint, left hand (principal); I10 Essential (primary) hypertension; M54.50 Low back pain, unspecified; E78.2 Mixed hyperlipidemia

== ENCOUNTER → 2024-01-19 09:27 | Outpatient (BNVA) | payer MEDICARE, MEDICAID, SELFPAY | PROVIDERS: PCP Physician Assistant; Visit Provider Physician Assistant | DX: M18.12 Unilateral primary osteoarthritis of first carpometacarpal joint, left hand (principal); I10 Essential (primary) hypertension; M54.50 Low back pain, unspecified; E78.2 Mixed hyperlipidemia | CPT/HCPCS: 99212 ==

== ENCOUNTER 2024-02-01 07:14 | Outpatient (REF) | payer MEDICARE, MEDICAID, SELFPAY ==
--- NOTE | ~2024-02-01 | CT_ITS ---
EXAMINATION: CT hand LT wo IV con INDICATION: M79.645 - Pain in left finger(s) COMPARISON: Hand radiographs dated 12/08/2023 TECHNIQUE: Multidetector volumetric imaging was obtained through the left hand without contrast material. Multiplanar reformatted images in coronal and sagittal orientations were submitted. This CT examination was performed using dose optimization techniques as appropriate, variously including the following: *Automated exposure control *Adjustment of mA and/or kV according to patient size (this includes techniques or standardized protocols for targeted exams where dose is matched to indication/reason for exam; i.e. extremities or head) *Use of iterative reconstruction technique DLP: 192 mGy-cm FINDINGS: No acute fractures. Bone mineralization is normal. No osseous lesions. No erosions or significant periostitis. The carpal alignment is appropriate. There is moderate osteoarthritis at the first CMC joint with nonuniform cartilage loss, marginal osteophytes, and small chronic osseous fragments. Additional moderate osteoarthritis is present at the thumb, index, and long finger MCP joints as well as the thumb IP joint. More mild multifocal osteoarthritis in the other interphalangeal joints, most notably at the index and long finger DIP joint. There is a volar/ulnar subluxation of the extensor carpi ulnaris tendon at the level of the distal ulnar groove with probable tendinosis. Tendons are otherwise grossly unremarkable. Musculature is unremarkable. CT/CT hand LT wo IV con IMPRESSION: 1. Moderate multifocal osteoarthritis in the left hand, most notably at the first CMC joint, thumb IP joint, and thumb, index, and long finger MCP joints. 2. Volar/ulnar subluxation of the extensor carpi ulnaris tendon at the level of the distal ulnar groove with associated tendinosis, suggesting a tear of the subsheath. Electronically signed by: Wayne Joel MD 02/01/2024 10:51 PM CRISTY TOM
== END 2024-02-01 07:15 | disposition home or self-care (01) ==
LOC: HO.CT 07:14
PROVIDERS: PCP Physician Assistant; Visit Provider Physician Assistant
DX: M79.645 Pain in left finger(s) (principal)
CPT/HCPCS: 73200

== ENCOUNTER 2024-05-27 08:41 | Outpatient (REF) | payer MEDICARE, MEDICAID, SELFPAY ==
[2024-05-27 09:30] LABS: Hematocrit 48.6 % (42.0-52.0); Hemoglobin 16.4 g/dl (14.0-18.0); Mean Corpuscular HGB Conc 33.7 g/dl (31.0-36.0); Mean Corpuscular Hemoglobin 30.9 pg (27.0-33.0); Mean Corpuscular Volume 91.7 fL (80.0-98.0); Mean Platelet Volume 9.5 fL (9.4-12.4); Platelet Count 202 X10*3/uL (160-400); Red Cell Distribution Width 12.4 % (11.0-16.0); White Blood Count 7.3 X10*3/uL (4.8-10.8)
[2024-05-27 10:05] LABS: Alanine Aminotransferase 34 U/L (0-40); Albumin Level 4.2 g/dL (3.5-5.0); Alkaline Phosphatase 70 U/L (39-117); Anion Gap 10 (12-20); Aspartate Amino Transferase 29 U/L (5-37); Bilirubin Total 0.8 mg/dL (0.0-1.0); Blood Urea Nitrogen 19 mg/dL (9-16); Calcium 9.2 mg/dL (8.4-10.2); Carbon Dioxide 26 mmol/L (22-29); Chloride 108 mmol/L (96-108); Cholesterol 149 mg/dL (<200); Estimated Glomerular Filt Rate > 60; Glucose Fasting 109 mg/dL (60-99); HDL Cholesterol 45 mg/dL (>40); LDL Cholesterol Calculated 94 mg/dL (<100); Potassium 4.4 mmol/L (3.3-5.1); Sodium 140 mmol/L (135-145); Total Protein 6.9 g/dL (6.5-8.0); Triglycerides 51 mg/dL (<150)
[2024-05-27 10:17] LABS: Creatinine Urine 116.51 mg/dL; Microalbum/Creatinine Ratio Ur 6.8 ug/mg cr (<30)
[2024-05-27 10:26] LABS: Prostate Specific Antigen Scr 1.24 ng/mL (<0.05-4.0)
== END 2024-05-27 08:42 | disposition home or self-care (01) ==
LOC: HO.LAB 08:41
PROVIDERS: PCP Physician Assistant; Visit Provider Physician Assistant
DX: I10 Essential (primary) hypertension (principal); Z12.5 Encounter for screening for malignant neoplasm of prostate; E78.2 Mixed hyperlipidemia; K57.90 Diverticulosis of intestine, part unspecified, without perforation or abscess without bleeding; K59.01 Slow transit constipation; K21.9 Gastro-esophageal reflux disease without esophagitis
CPT/HCPCS: 36415; 80053; 80061; 82043; 82570; 84153; 85027; 99212

== ENCOUNTER 2024-05-27 09:46 | Outpatient (AMB) | payer MEDICARE, MEDICAID, SELFPAY ==
--- NOTE | 2024-05-27 09:47 | A.OFFVIS_ITS ---
Vital Signs 05/27/24 09:48 Height 6 ft Weight 310 lb BMI 42.0 BP 134/64 Blood Pressure Location Rt brachial Position Sitting Pulse 70 Pulse Source Pulse Oximeter Pulse Oximetry (%) 97 Oxygen Delivery Method Room Air Intake Visit Reasons: 1 year follow up Intake Note: ESTABLISHED PATIENT for mgmt of GERD and constipation Chief Complaint; Pt denies any GI concerns at this time. Pt taking OTC laxatives daily to stay regular and taking miralax powder PRN if dealing with increase in constipation. 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 Due to history of adenomatous polyps patient will need to repeat colonoscopy in 5 years, sooner if clinically necessary. Continue MiraLax daily to help him move his bowels. Patient can take omeprazole in the morning half an hour before breakfast. Avoid dietary triggers and late night snacking. Staying upright for minimum 3 hours after meals discussed with patient. He will follow-up in the office in 1 year, sooner on as needed basis. He is agreeable to this plan and verbalizes understanding of instructions. He was given the opportunity to ask questions and all questions answered. ? Thank you for allowing me to participate in his care Medications New polyethylene glycol 3350 (Miralax) 17 grams PO DAILY 510 grams 2RF Refilled omeprazole 20 mg PO DAILY 30 caps 3RF K21.9 TODAY'S VISIT For patient is here today for follow-up. Patient reports that since last visit he has been doing quite well. Change some of his diet. Currently taking to Dulcolax every night and occasionally taking MiraLax to help with bowel movements. Patient denies any melena, hematochezia. Colonoscopy last year and recommendation was made for 5 year recall. Patient denies any dyspepsia, dysphagia or odynophagia. Denies any acid reflux. Patient no longer is taking omeprazole, states that his symptoms are control with diet. [facility] Medical History Diverticulosis Cervical radiculopathy at C6 Recurrent UTI Tubular adenoma Hearing loss Elevated cholesterol Surgical History Hx of colonoscopy History of neck surgery History of excision of mass Hx of tonsillectomy History of knee surgery Family History Mother Colon cancer, Onset Age: 60 DMII (diabetes mellitus, type 2) Brother Prostate cancer Brother Melanoma Social History Housing: Apartment Alcohol intake: never Comment: recently developed at home. Patient Tobacco Use Status: Former Tobacco user Years Smoked: 32 e-Cigarette/Vaping Use: Never Used Second Hand Smoke Exposure: No Advance Directives Date on File: 10/21/21 service: No Current occupational status: retired Cognitive needs: No Hearing needs: Yes (hearing aid) Vision needs: Yes (Glasses) Review of Systems Const Denies weight gain and Denies weight loss ENT Reports no additional complaints, Denies dysphagia and Denies odynophagia Card Reports no additional complaints Resp Reports no additional complaints GI Denies abdominal pain, Denies belching, Denies melena, Denies bloating, Denies change in bowel habits, Denies dysphagia, Denies excessive flatus, Denies dyspepsia, Denies heartburn, Denies diarrhea, Denies loose stools, Denies nausea, Denies odynophagia and Denies vomiting Reports no additional complaints Musc Reports no additional complaints Neuro Reports no additional complaints Psych Reports no additional complaints Endo Reports no additional complaints Physical Exam Vital Signs: Last Vital Signs Pulse 70 05/27/24 09:48 BP 134/64 05/27/24 09:48 Pulse Ox 97 05/27/24 09:48 Oxygen Delivery Method Room Air 05/27/24 09:48 BMI result Body Mass Index 42.0 Const General: healthy appearing and no acute distress Nutritional Appearance: obese Orientation/consciousness: patient oriented x3 Resp Effort & Inspection: normal respiratory effort, able to speak in complete sentences, no tracheal deviation and symmetric chest movement Auscultation: clear to auscultation bilaterally Cardio Rate: regular rate GI Inspection: Yes normal to inspection, No distended and Yes obesity Palpation (GI): Soft to palpation, not firm, nontender and No hepatosplenomegaly present Auscultation: normal bowel sounds General: Yes no CVA tenderness Back/Spine/Pelvis Back: no CVA tenderness Skin General skin exam: elasticity normal, turgor normal and dry skin Neuro General: patient oriented x3 Psych Appearance: grossly normal Mental Status: mental status grossly normal Assessment & Plan Assessment & Plan (1) Diverticulosis: Code(s): K57.90 - Diverticulosis of intestine, part unspecified, without perforation or abscess without bleeding Category: Medical (2) Constipation by delayed colonic transit: Code(s): K59.01 - Slow transit constipation Category: Medical (3) GERD (gastroesophageal reflux disease): Code(s): K21.9 - Gastro-esophageal reflux disease without esophagitis Qualifiers: Esophagitis presence: esophagitis presence not specified Qualified Code(s): K21.9 - Gastro-esophageal reflux disease without esophagitis Plan Continue current regimen with diet and supplements. Patient will continue avoiding dietary triggers in late night snacking. Staying upright for minimum 3 hours after meals discussed with patient. Diagnosed with diverticulosis stressed again the importance of high-fiber diet or fiber supplements. Patient will follow-up in our office as needed. He will call us if he will have any GI concerning symptoms. He is agreeable to this plan and verbalizes understanding of instructions. He was given the opportunity to ask questions and all questions answered. Thank you for allowing me to participate in his care Coding Level of Care Code Est Pt Level 3 (80781) Diagnoses Diverticulosis K57.90 Constipation by delayed colonic transit K59.01 Gastroesophageal reflux disease, unspecified whether esophagitis present K21.9 Esophagitis presence: esophagitis presence not specified Time Spent (min) 25 Comment 15 minutes spent with patient and additional 10 minutes spent reviewing his records
[2024-05-27 09:48] VITALS: BP 134/64; PULSE 70; O2SAT 97; BMI 42.0
== END 2024-05-27 10:25 | disposition home or self-care (01) ==
LOC: HO.HGI 09:46
PROVIDERS: PCP Physician Assistant; Visit Provider Nurse Practitioner Family
DX: K57.90 Diverticulosis of intestine, part unspecified, without perforation or abscess without bleeding (principal); K59.01 Slow transit constipation; K21.9 Gastro-esophageal reflux disease without esophagitis
CPT/HCPCS: 99213

== ENCOUNTER 2024-06-15 08:17 | Outpatient (AMB) | payer MEDICARE, MEDICAID, SELFPAY ==
--- NOTE | 2024-06-15 08:20 | MHC.OFFVIS ---
Vital Signs 06/15/24 08:21 Height 6 ft Weight 310 lb BMI 42.0 Intake Visit Reasons: New problem Left elbow pain s/p shoveling Intake Note: Romie is a 68 year old left hand dominant male who presents today for a new problem visit with complaints of left elbow pain. Patient reports that he has had pain in the elbow since April. He was shoveling some dirt and he feels that he over did it. His pain is felt on the lateral aspect of the elbow worse with all movement and activity. He utilizes aspercreme at bedtime if the pain is bad Allergies No Known Allergies Allergy (Verified 06/15/24 08:25) HPI HPI New problem Left elbow pain s/p shoveling : Details: Romie is a 68 year old left hand dominant male who presents today for a new problem visit with complaints of left elbow pain. Patient reports that he has had pain in the elbow since April. He was shoveling some dirt and he feels that he over did it. His pain is felt on the lateral aspect of the elbow worse with all movement and activity. He utilizes aspercreme at bedtime if the pain is bad PFSH Medical History Diverticulosis Cervical radiculopathy at C6 Recurrent UTI Tubular adenoma Hearing loss Elevated cholesterol Surgical History Hx of colonoscopy History of neck surgery History of excision of mass Hx of tonsillectomy History of knee surgery Family History Mother Colon cancer, Onset Age: 60 DMII (diabetes mellitus, type 2) Brother Prostate cancer Brother Melanoma Social History Housing: Apartment Alcohol intake: never Comment: recently developed at home. Patient Tobacco Use Status: Former Tobacco user Years Smoked: 32 e-Cigarette/Vaping Use: Never Used Second Hand Smoke Exposure: No Advance Directives Date on File: 10/21/21 service: No Current occupational status: retired Cognitive needs: No Hearing needs: Yes (hearing aid) Vision needs: Yes (Glasses) Review of Systems Const All systems reviewed & are unremarkable except as noted in HPI and below Physical Exam Vital Signs: BMI result Body Mass Index 42.0 Extrem Other: Patient's left elbow normal to inspection No erythema, ecchymosis, edema noted No lacerations, abrasions, open areas No evidence of infection Patient reports significant tenderness to palpation of the lateral epicondyle and surrounding soft tissue structures of the left elbow Patient is able to flex the left elbow to approximately 150 degrees and extend to 0 degrees without difficulty Pronation and supination of the left wrist full and intact Positive Cozen's test in the left Distal sensation intact Capillary refill brisk Office Procedures AMB Joint Injection/Aspiration Joint Injection/Aspiration Primary Site: left tennis elbow Prep: site was prepped using aseptic technique, ethochloride spray was applied and injection warnings given Injected: 40 mg of, DepoMedrol, with 1 mL of and 1% plain lidocaine Procedure: The patient tolerated the procedure well, but had some pain with the injection and there was some relief with the local anesthesia Coding 78809 - Epicondyle Procedure code (CPT) selection complete Assessment & Plan Assessment & Plan (1) Left lateral epicondylitis: Code(s): M77.12 - Lateral epicondylitis, left elbow Category: Medical Plan 1. Lateral epicondylitis of left elbow Patient is educated about this condition Patient is educated about the treatment options available At this time, patient was offered referral to occupational therapy, but declines, stating ?I do not have time for that? Patient does express interest in steroid injection The risks and benefits of a steroid injection including but not limited to risk of damage to blood vessels, nerves, tendons, infection, skin bleaching, failure to improve symptoms, increased pain, and possible need for further injections or other intervention were discussed with the patient and the patient wishes to proceed with the steroid injection. Once consent was obtained, I aseptically prepped the area over the lateral epicondyle of the left elbow. I then injected the area over the lateral epicondyle with a combination of 40 mg of dexamethasone and 1 mL of 1% lidocaine. The patient tolerated the procedure well with no complications. If the patient continues to experience symptoms over the next 4 weeks, they can make an appointment to return and discuss alternative treatment measures, such as physical therapy. Follow-up prn Coding Level of Care Code Est Pt Level 3 (74940) Diagnoses Left lateral epicondylitis M77.12 CPT Codes Coding - Joint 2: 05624 - Epicondyle ([id number])
[2024-06-15 08:21] VITALS: BMI 42.0
== END 2024-06-15 08:51 | disposition home or self-care (01) ==
LOC: HO.HOS 08:18
PROVIDERS: PCP Physician Assistant
DX: M77.12 Lateral epicondylitis, left elbow (principal)
CPT/HCPCS: 20551; 99213

== ENCOUNTER → 2024-06-15 08:17 | Outpatient (BNVA) | payer MEDICARE, MEDICAID, SELFPAY | PROVIDERS: PCP Physician Assistant | DX: M77.12 Lateral epicondylitis, left elbow (principal) | CPT/HCPCS: 20551; 99212; J1010; J2003 ==

== ENCOUNTER 2024-06-20 13:14 | Outpatient (AMB) | payer MEDICARE, MEDICAID, SELFPAY ==
--- NOTE | 2024-06-20 13:17 | AM.OFFVISMDC ---
Intake Vital Signs 06/20/24 13:25 Height 6 ft Weight 313 lb 8 oz BMI 42.5 BP 162/96 H Blood Pressure Location Lt brachial Position Sitting Pulse 72 Pulse Source Pulse Oximeter Temp 97.5 F Temp Source Temporal Artery Scan Pulse Oximetry (%) 95 Oxygen Delivery Method Room Air Intake Visit Reasons: [facility] Lens Cutter Required: No Accompanied by: Self / Same As Patient Allergies hydrochlorothiazide Adverse Reaction (Intermediate, Verified 06/20/24 13:44) Dizziness Medication List - Last Reconciled 06/20/24 by Paulo Dorado PA-C atorvastatin 10 mg PO DAILY 90 days diclofenac sodium 3% 1 appl topical BID 4 weeks docusate sodium (Colace) 300 mg PO DAILY hydrochlorothiazide 12.5 mg PO DAILY miscellaneous medical supply (Blood Pressure Cuff) monitor once per day polyethylene glycol 3350 (Miralax) 17 grams PO DAILY PRN triamcinolone acetonide 0.1% 1 appl topical DAILY 30 days HPI SA[facility] HPI Details Patient is a 68-year-old male here today for an annual wellness visit. Patient has a past medical history significant for obesity, hypertension, cervical spine disc disease, hyperlipidemia. Today we did discuss his elevated blood pressure and he stopped taking hydrochlorothiazide due to not feeling well on the medication. He is willing to try low-dose alternative antihypertensive medication. Thus will start losartan 25 mg and commence blood pressure monitoring at home. Today we discussed his end of life planning. Also discuss his comprehensive care plan which was scanned into patient's documents. Colonoscopy: Done in 2023, multiple polyps found-benign, repeat 3-5 years Vaccines: Up-to-date with tetanus vaccine, needs pneumonia -declines, flu and COVID vaccines. Considering shingles vaccine Laboratory Tests 09/16/23 05/27/24 05/27/24 08:08 08:52 08:55 RBC 5.30 Creatinine 1.04 0.87 Fasting Glucose 109 H Estimat Average Gl ucose 105 Cholesterol 172 149 LDL Cholesterol, C alc 94 PSA Screen 1.24 Urine Microalbumin 8.0 wse HPI Comments History of Present Illness Details reviewed past medical history- yes reviewed surgical / hospitalization history- yes reviewed current medications- yes reviewed family history- yes home safety throw rugs? grab bars? raised toilet seat? working smoke detectors? activities of daily living difficulty bathing or showering? difficulty dressing? difficulty using the toilet? difficulty getting in and out of bed? difficulty walking? receives help from other person's with any of the above tasks? instrumental activities of daily living uses telephone - gets to place out of walking distance- go shopping for groceries- repairs own meals- does own minor home maintenance- does own laundry- does own housework- manages own money- currently takes medication- end of life planning discussed advanced directives- yes advanced directives on file? discussed wishes expressed in advanced directives. fall risk have you had any falls with injuries in the past year? have you had 2 or more falls in the past year? fall risk assessment: [facility] Medical History Diverticulosis Cervical radiculopathy at C6 Recurrent UTI Tubular adenoma Hearing loss Elevated cholesterol Surgical History Hx of colonoscopy History of neck surgery History of excision of mass Hx of tonsillectomy History of knee surgery Family History Mother Colon cancer, Onset Age: 60 DMII (diabetes mellitus, type 2) Brother Prostate cancer Brother Melanoma Social History Housing: Apartment Alcohol intake: never Comment: recently developed at home. Patient Tobacco Use Status: Former Tobacco user Years Smoked: 32 e-Cigarette/Vaping Use: Never Used Second Hand Smoke Exposure: No Advance Directives Date on File: 10/21/21 service: No Current occupational status: retired Cognitive needs: No Hearing needs: Yes (hearing aid) Vision needs: Yes (Glasses) Questionnaire Medicare Wellness Checkup [age] What gender do you identify with?: male During the past 4 weeks, how much have you been bothered by emotional problems such as feeling anxious, depressed, irritable, sad or downhearted, and blue?: not at all During the past 4 weeks, has your physical & emotional health limited your social activities with family, friends, neighbors, or groups?: not at all During the past 4 weeks, how much bodily pain have you generally had?: severe pain During the past 4 weeks, was someone available to help you if you needed & wanted help?: no, not at all Can you get to places out of walking distance without help? (For eg., can you travel alone on buses, taxis or drive your car?): Yes Can you go shopping for groceries or clothes without someone's help?: Yes Can you prepare your own meals?: Yes Can you do your housework without help?: Yes Because of any health problems, do you need the help of another person with your personal care needs such as eating, bathing, dressing or getting around the house?: No Can you handle your own money without help?: Yes During the past 4 weeks, how would you rate your health in general?: excellent During the past 4 weeks how have things been going for you?: very well; could hardly better Are you having difficulties driving your car?: no During past 4 weeks, have you been bothered by the following: never: Falling or dizzy when standing up, Sexual problems?, Trouble eating well?, Teeth or denture problems?, Problems using the telephone? and Tiredness or fatigue? Have you fallen 2 or more times in the past year?: No Are you afraid of falling?: No Are you a smoker?: no During the past 4 weeks, how many drinks of wine, beer, or other alcoholic beverages did you have?: no alcohol at all Do you exercise for about 20 minutes 3 or more times a week?: no, I usually do not exercise this much Have you been given information to help with the following?: no: Hazards in your house that might hurt you? and no: Keeping track of your medications? How often do you have trouble taking medicines the way you have been told to take them?: I always take medicine as prescribed What is your race?: White Mini Mental State Exam (MMSE) Orientation What is the (year) (season) (date) (day) (month)?: year Where are we (state) (county) (town or city) (hospital) (floor)?: town or city Attention & Calculation (CHOOSE ONE) Spell WORLD backwards (DLROW): 5 letters Score Score: 7 Activity of Daily Living Bathing - sponge bath, tub bath or shower: receives no assistance (gets in/out by self, if usual bathing means Dressing - getting clothes from closets & drawers, including inner/outer garments & fasteners.: gets clothes & gets completely dressed without help Toileting - going to the 'toilet room' for urine/bowel elimination & cleaning self/arranging clothes: goes to toilet room, cleans self, arranges clothes without help Transfer: moves in & out of bed and chair without help (may use support object) Continence: controls urination/bowel movements completely by self Feeding: feeds self without help Total Score: 0 Information obtained from: patient Using telephone: independent Traveling: independent Shopping: independent Preparing meals: independent Housework: independent Taking medicine: independent Managing money: independent PHQ-9 Over the last 2 weeks, how often have you been bothered by any of the following problems? 1. Little interest or pleasure in doing things: not at all 2. Feeling down, depressed, or hopeless: not at all 3. Trouble falling or staying asleep, or sleeping too much: not at all 4. Feeling tired or having little energy: not at all 5. Poor appetite or overeating: not at all 6. Feeling bad about yourself - or that you are a failure or have let yourself or your family down: not at all 7. Trouble concentrating on things, such as reading the newspaper or watching television: not at all 8. Moving or speaking so slowly that other people could have noticed. Or the opposite - being so fidgety or restless that you have been moving around a lot more than usual: not at all 9. Thoughts that you would be better off or of hurting yourself in some way: not at all Total score: 0 Depression Screening Interpretation: Negative Depression Screening Done: Yes 61030 - PHQ-9 Billing: Yes Source: Developed by Drs. Nguyễn Kay, Aparna Young, Jyaa Bettencourt and colleagues, with an educational marcia from [employer]. Physical Exam Vital Signs: Last Vital Signs Temp 97.5 F 06/20/24 13:25 Pulse 72 06/20/24 13:25 BP 162/96 H 06/20/24 13:25 Pulse Ox 95 06/20/24 13:25 Oxygen Delivery Method Room Air 06/20/24 13:25 BMI result Body Mass Index 42.5 HEENT Other: hearing screening whisper test- Eyes Other: vision screening- using corrective lenses- 20 20 OS OU OD Other: urinary incontinence? no Neuro Other: balance Romberg- normal tandem walk test- able walk-in turned test- able rise from sit to stand- within 2 seconds Assessment & Plan Assessment & Plan (1) Medicare annual wellness visit, subsequent: Code(s): Z00.00 - Encounter for general adult medical examination without abnormal findings Plan: As per HPI (2) HTN (hypertension): Code(s): I10 - Essential (primary) hypertension Qualifiers: Hypertension type: primary hypertension Qualified Code(s): I10 - Essential (primary) hypertension Plan: Patient's blood pressure slightly elevated today in office. He reports hydrochlorothiazide was causing him side effects. Will transitioned to losartan 25 mg. He promises to be more consistent with the use of his blood pressure medication. Goal blood pressure to be below 140/90 Orders: Orders Comprehensive Met. Panel Today I10 - Essential (primary) hypertension Hemoglobin A1c Today R73.09 - Other abnormal glucose Medications: New losartan 25 mg PO DAILY 30 days 30 tabs 2RF I10 - Essential (primary) hypertension Refilled atorvastatin 10 mg PO DAILY 90 days 90 tabs 1RF E78.5 - Hyperlipidemia, unspecified Quality Reporting (2019) Depression/Bipolar (159/160/161/177) PHQ-9: Total score: 0 Coding Level of Care Code Medicare Subsequent (G0439) Est Pt Level 3 (33822) Diagnoses Medicare annual wellness visit, subsequent Z00.00 Primary hypertension I10 Hypertension type: primary hypertension Additional Codes PHQ-9 - 91533 - PHQ-9 Billing: Yes ([id number])
[2024-06-20 13:25] VITALS: BP 162/96; PULSE 72; TEMP 36.4; O2SAT 95; BMI 42.5
== END 2024-06-20 15:27 | disposition home or self-care (01) ==
LOC: HO.HMCH 13:14
PROVIDERS: PCP Physician Assistant; Visit Provider Physician Assistant
DX: Z00.00 Encounter for general adult medical examination without abnormal findings (principal); I10 Essential (primary) hypertension

== ENCOUNTER → 2024-06-20 13:14 | Outpatient (BNVA) | payer MEDICARE, MEDICAID, SELFPAY | PROVIDERS: PCP Physician Assistant; Visit Provider Physician Assistant | DX: Z00.00 Encounter for general adult medical examination without abnormal findings (principal); I10 Essential (primary) hypertension | CPT/HCPCS: 96127; 99212 ==

== ENCOUNTER 2024-06-25 18:32 | Emergency (ER) | payer MEDICARE, MEDICAID, SELFPAY ==
--- NOTE | ~2024-06-25 | CT_ITS ---
CLINICAL HISTORY: abdominal pain, diarrhea CT abdomen and pelvis with contrast Comparison: CT - CT ABDOMEN PELVIS W IV CON - 06/25/24 21:45 EDT Findings: No consolidation or effusion. Coronary artery calcifications are present. Mildly enlarged right infrahilar lymph node. The gallbladder and solid organs are within normal limits. No hydronephrosis or hydroureter. No bowel obstruction, pneumoperitoneum, or pneumatosis. [id number]-[id number] distal sigmoid colon stool burden with borderline bowel wall thickening in this region. There is scattered colonic diverticulosis without CT evidence for acute diverticulitis. Pelvic contents unremarkable. No focal bladder wall thickening. Possible small nondilated appendix of the mid to lower right hemiabdomen on the coronal image number 42 of series 7. No acute fracture visualized. Multilevel degenerative endplate changes are present at the thoracolumbar spine. IMPRESSION: 1. [id number] distal sigmoid colon stool burden with borderline wall thickening in this region. Recommend clinical correlation for possible mild colitis. No other CT evidence for an acute inflammatory process identified within the abdomen or pelvis. No bowel obstruction. This document has been electronically signed by: Lion Martinez MD on 06/25/2024 23:02:14
--- NOTE | 2024-06-25 18:33 | ECG_ITS ---
Test Reason : sob chest pain weakness Blood Pressure : */* mmHG Vent. Rate : 93 BPM Atrial Rate : 93 BPM P-R Int : 216 ms QRS Dur : 96 ms QT Int : 362 ms P-R-T Axes : 10 10 23 degrees QTcB Int : 450 ms Sinus rhythm with 1st degree A-V block Otherwise normal ECG When compared with ECG of 03-Nov-2021 12:14, OR interval has increased QT has lengthened Referred By: Cecile Skelton Electronically Signed By: ROD KIDD
[2024-06-25 18:37] VITALS: BP 164/84; PULSE 100; RESP 12; TEMP 36.7; O2SAT 95; BMI 42.1
--- NOTE | 2024-06-25 18:40 | ED_ITS ---
HPI - General Adult General Chief complaint: Dyspnea Stated complaint: chest pain sob Time Seen by Provider: 06/25/24 20:54 Source: patient Limitations: no limitations History of Present Illness ED Provider: Rebecca To PA-C HPI narrative: 68-year-old male with a history of hypertension, hyperlipidemia, morbid obesity, chronic constipation who presents with multiple complaints. Patient states over the past week he has been having diarrhea that has been diffuse. He denies recent use of antibiotics, travel or hospitalization. Associated lower abdominal discomfort, unable to describe the nature of his pain. Denies nausea vomiting or fever. Patient states today he was having intermittent chest discomfort and dyspnea with exertion. His symptoms have been intermittent. Denies cough or cold symptoms, unintentional weight gain or diaphoresis. Related Data Home Medications ?Medication ?Instructions ?Recorded ?Confirmed docusate sodium 100 mg capsule 300 mg PO DAILY 05/27/24 06/20/24 (Colace) polyethylene glycol 3350 17 17 g PO DAILY PRN 05/27/24 06/20/24 gram/dose oral powder (Miralax) Previous Rx's ?Medication ?Instructions ?Recorded miscellaneous medical supply #1 ea 06/03/23 (Blood Pressure Cuff) triamcinolone acetonide 0.1 % 1 appl topical DAILY 30 days #30 10/14/23 topical cream grams diclofenac sodium 3 % topical gel 1 appl topical BID 4 weeks #100 01/19/24 grams atorvastatin 10 mg tablet 10 mg PO DAILY 90 days #90 tabs 06/20/24 amlodipine 2.5 mg tablet 2.5 mg PO DAILY 15 days #15 tabs 06/21/24 ketorolac 10 mg tablet 10 mg PO Q6H PRN pain #20 tabs 06/25/24 levofloxacin 750 mg tablet 750 mg PO Q24H #7 tabs 06/25/24 metronidazole 500 mg tablet 500 mg PO Q8H 7 days #21 tabs 06/25/24 Allergies Allergy/AdvReac Type Severity Reaction Status Date / Time hydrochlorothiazide AdvReac Intermediate Dizziness Verified 06/25/24 18:39 Review of Systems 2 Review of Systems: Yes all other systems are reviewed and are negative Constitutional: Constitutional: Denies fatigue and Denies fever(s) Cardiovascular: Cardiovascular: Reports chest pain and Reports dyspnea Respiratory: Respiratory: Denies cough and Reports dyspnea Gastrointestinal: Gastrointestinal: Reports abdominal pain, Denies constipation, Reports diarrhea, Denies nausea and Denies vomiting Endocrine: Endocrine: Denies fatigue [facility] Past Medical History Attestation statement: The following information was validated with the patient. Medical History Diverticulosis Cervical radiculopathy at C6 Recurrent UTI Tubular adenoma Hearing loss Elevated cholesterol Surgical History Hx of colonoscopy History of neck surgery History of excision of mass Hx of tonsillectomy History of knee surgery Family History Family History Mother Colon cancer, Onset Age: 60 DMII (diabetes mellitus, type 2) Brother Prostate cancer Brother Melanoma Social History Social History Housing: Apartment Alcohol intake: never Comment: recently developed at home. Patient Tobacco Use Status: Former Tobacco user Years Smoked: 32 e-Cigarette/Vaping Use: Never Used Second Hand Smoke Exposure: No Advance Directives Date on File: 10/21/21 service: No Current occupational status: retired Cognitive needs: No Hearing needs: Yes (hearing aid) Vision needs: Yes (Glasses) Physical Exam ED Vital Signs: Vital Signs - 24 hr 06/25/24 18:37 Temperature 98.1 F Pulse Rate 100 Respiratory Rate 12 Blood Pressure 164/84 H Pulse Oximetry 95 BMI result Body Mass Index 42.1 Const Other: Alert Orientation/consciousness: patient oriented x3 Resp Effort & Inspection: normal respiratory effort Cardio Other: Normal peripheral perfusion GI Other: Abdomen is soft, nontender nondistended obese, mild tenderness across lower abdomen without any guarding Skin Other: Warm dry no rash Neuro General: patient oriented x3, gait normal, no focal motor deficits and CN's II- XI intact bilaterally Psych Other: Cooperative Course Course Course Narrative: RME performed by Cecile Skelton PA-C. Patient is a 68 year old assigned male at presenting to the emergency department with lower abdominal pain, diarrhea, weakness, and feeling generally unwell. Patient states that he is having lower abdominal pain and did have 1 episode chest pain that has now resolved but his abdominal pain persists. Detailed physical exam and review of systems are deferred to the route sales representative. EKG, labs, and swabs ordered. Patient placed back in the waiting room pending room availability and results. Medications Administered Discontinued Medications Generic Name Dose Route Start Last Admin Trade Name Corrine PRN Reason Stop Dose Admin Sodium Chloride 1,000 mls @ 999 mls/hr 06/25/24 21:00 06/25/24 23:03 Ns IV 06/25/24 22:00 Infused .Q1H1M RICH Infusion Iohexol 100 ml 06/25/24 21:55 06/25/24 21:56 Iohexol 350 Mg/Ml 100 Ml Infus..Btl IV 06/25/24 21:56 100 ml ONCE ONE Administration Ketorolac Tromethamine 15 mg 06/25/24 23:24 06/25/24 23:31 Ketorolac Tromethamine 15 Mg/Ml Vial IVPUSH 06/25/24 23:25 15 mg ONCE ONE Administration Medical Decision Making Medical Decision Making MDM Narrative: 68-year-old male with a history of hypertension, hyperlipidemia, morbid obesity, chronic constipation who presents with multiple complaints. Patient states over the past week he has been having diarrhea that has been diffuse. He denies recent use of antibiotics, travel or hospitalization. No sick contacts with similar symptoms Associated lower abdominal discomfort, unable to describe the nature of his pain. Denies nausea vomiting or fever. Patient states today he was having intermittent chest discomfort and dyspnea with exertion. His symptoms have been intermittent. Denies cough or cold symptoms, unintentional weight gain or diaphoresis. Problem: Age, hypertension, History: Per patient I have considered the following differential diagnoses: ACS, heart failure exacerbation, pneumonia, diverticulitis, colitis, C diff, traveler's diarrhea Plan: Patient here with multiple complaints. Patient developed dyspnea with exertion and chest discomfort today, it has been intermittent, is very atypical, however the patient does have risk factors for coronary artery disease. With screening labs troponin EKG and chest x-ray were obtained. In regard to his GI related complaints, overall his abdominal exam was benign, he has some degree of tenderness over lower abdomen, we will place a CT scan to rule out diverticulitis. To note he has no risk factors for C diff or traveler's diarrhea. Thought about new onset heart failure given dyspnea with exertion, however he is not overtly hypertensive, no unintentional weight gain, he does not appear volume overloaded on exam. He is not hypoxic. This could also be viral gastroenteritis, however the patient does not have sick contacts with similar symptoms. I have independently reviewed the following tests: EKG: Sinus rhythm with first-degree AV block, rate of 93, no ischemic changes no ectopy QTC 450 Labs: No leukocytosis, not anemic, no electrolyte abnormality, troponin 4.2, delta troponin 6.7, viral panel negative CT abd/pelvis: IMPRESSION: 1. Emjh-[id number]-mebvptfi distal sigmoid colon stool burden with borderline wall thickening in this region. Recommend clinical correlation for possible mild colitis. No other CT evidence for an acute inflammatory process identified within the abdomen or pelvis. No bowel obstruction. Lab Data 06/25/24 19:03 06/25/24 19:03 Labs: Lab Results 06/25/24 06/25/24 Range/Units 19:03 21:04 WBC 10.0 (4.8-10.8) X10*3/uL RBC 5.07 (4.60-5.80) X10*6/uL Hgb 16.1 (14.0-18.0) g/dl Hct 45.7 (42.0-52.0) % MCV 90.1 (80.0-98.0) fL MCH 31.8 (27.0-33.0) pg MCHC 35.2 (31.0-36.0) g/dl RDW 12.4 (11.0-16.0) % Plt Count 192 (160-400) X10*3/uL MPV 9.3 L (9.4-12.4) fL Immature Gran % (Auto) 0.3 (0.0-0.4) % Neut % (Auto) 70.8 (45-73) % Lymph % (Auto) 16.7 L (20-40) % Sumner % (Auto) 9.5 (2-11) % Eos % (Auto) 2.5 (0-4) % Baso % (Auto) 0.2 (0-2) % Lymph # (Auto) 1.7 (1.2-4.9) X10*3/uL Sumner # (Auto) 1.0 (0.1-1.2) X10*3/uL Eos # (Auto) 0.3 (0.0-0.4) X10*3/uL Baso # (Auto) 0.0 (0.0-0.2) X10*3/uL Abs Immat Gran (auto) 0.03 (0.00-0.03) X10*3/uL Absolute Neuts (auto) 7.1 (2.0-8.3) x10*3/uL Absolute Nucleated RBC 0.000 (0.0-0.012) X10*3/uL Nucleated RBC % (auto) 0.0 (0.0-0.2) /100WBC PT 10.9 (10.9-12.4) SEC INR 0.9 (0.9-1.1) Sodium 141 (135-145) mmol/L Potassium 3.7 (3.3-5.1) mmol/L Chloride 108 (96-108) mmol/L Carbon Dioxide 22 (22-29) mmol/L Anion Gap 15 (12-20) BUN 21 H (9-16) mg/dL Creatinine 0.98 (0.5-1.4) mg/dL Estim Creat Clear Calc 103.4 Estimated GFR > 60 Random Glucose 149 H (60-115) mg/dL Calcium 9.1 (8.4-10.2) mg/dL Magnesium 2.1 (1.6-2.6) mg/dL Total Bilirubin 0.5 (0.0-1.0) mg/dL AST 24 (5-37) U/L ALT 24 (0-40) U/L Alkaline Phosphatase 74 (39-117) U/L Troponin I High Sens 4.2 6.7 D (<3.5-35.0) ng/L Total Protein 6.7 (6.5-8.0) g/dL Albumin 4.1 (3.5-5.0) g/dL Influenza Type A (PCR) NEGATIVE (Negative) Influenza Type B (PCR) NEGATIVE (Negative) RSV RNA Qual (PCR) NEGATIVE (Negative) SARS-CoV-2 RNA (RT-PCR) NEGATIVE (Negative) Discharge Plan Discharge Clinical Impression: Colitis, Constipation Patient Disposition: Home, Self-Care Instructions: Constipation (DC), Nutrition Tips for Relief of Diarrhea (ED), Colitis (ED) Additional Instructions: You were found to have mild colitis, with concurrent constipation on the CT scan. You should resume your bowel regimen. In addition, take the ketorolac as needed for residual abdominal discomfort. You should be consuming a bland diet over the next week. Make an appointment with your grinder set up operator universal for follow-up. You could also start using an [id number] probiotic, this is good bacteria that will help restore your gut health. You can stay on it indefinitely. If you are not noticing improvement in your symptoms within 2 days, start taking the antibiotics. Prescriptions: New ketorolac 10 mg tablet 10 mg PO Q6H PRN (Reason: pain) Qty: 20 0RF Rx Instructions: maximum total duration of 5 days from all oral, intranasal, or parenteral formulations. The patient had an IV dose of Toradol here in the emergency department. metronidazole 500 mg tablet 500 mg PO Q8H 7 Days Qty: 21 0RF levofloxacin 750 mg tablet 750 mg PO Q24H Qty: 7 0RF No Action amlodipine 2.5 mg tablet 2.5 mg PO DAILY 15 Days Qty: 15 1RF triamcinolone acetonide 0.1 % cream 1 appl topical DAILY 30 Days Qty: 30 0RF (DME) Blood Pressure Cuff Misc See Rx Instructions .ROUTE .MEDSUPPLY Qty: 1 0RF Rx Instructions: monitor once per day docusate sodium [Colace] 100 mg capsule 300 mg PO DAILY polyethylene glycol 3350 [Miralax] 17 gram/dose powder 17 g PO DAILY PRN atorvastatin 10 mg tablet 10 mg PO DAILY 90 Days Qty: 90 1RF diclofenac sodium 3 % gel 1 appl topical BID 28 Days Qty: 100 0RF Interventions: ED Discharge Assessment Last Done: 06/25/24 23:36 Discharge Date/Time: 06/25/24 23:36 Print Language: Italian
[2024-06-25 19:09] LABS: Basophils Percent Auto 0.2 % (0-2); Eosinophils Absolute Auto 0.3 X10*3/uL (0.0-0.4); Eosinophils Percent Auto 2.5 % (0-4); Hematocrit 45.7 % (42.0-52.0); Hemoglobin 16.1 g/dl (14.0-18.0); Imm Gran Abs Auto 0.03 X10*3/uL (0.00-0.03); Imm Gran Pct Auto 0.3 % (0.0-0.4); Lymphocytes Absolute Auto 1.7 X10*3/uL (1.2-4.9); Lymphocytes Percent Auto 16.7 % (20-40); MANUAL DIFF FLAG NO; Mean Corpuscular HGB Conc 35.2 g/dl (31.0-36.0); Mean Corpuscular Hemoglobin 31.8 pg (27.0-33.0); Mean Corpuscular Volume 90.1 fL (80.0-98.0); Mean Platelet Volume 9.3 fL (9.4-12.4); Monocytes Percent Auto 9.5 % (2-11); Neutrophils Absolute Auto 7.1 x10*3/uL (2.0-8.3); Neutrophils Percent Auto 70.8 % (45-73); Platelet Count 192 X10*3/uL (160-400); Red Blood Count 5.07 X10*6/uL (4.60-5.80); Red Cell Distribution Width 12.4 % (11.0-16.0)
[2024-06-25 19:14] LABS: INTERNATIONAL NORM RATIO 0.9 (0.9-1.1); Prothrombin Time 10.9 SEC (10.9-12.4)
[2024-06-25 19:23] LABS: Alanine Aminotransferase 24 U/L (0-40); Albumin Level 4.1 g/dL (3.5-5.0); Alkaline Phosphatase 74 U/L (39-117); Anion Gap 15 (12-20); Aspartate Amino Transferase 24 U/L (5-37); Bilirubin Total 0.5 mg/dL (0.0-1.0); Blood Urea Nitrogen 21 mg/dL (9-16); Calcium 9.1 mg/dL (8.4-10.2); Carbon Dioxide 22 mmol/L (22-29); Chloride 108 mmol/L (96-108); Creatinine Clr Calc Pharmacy 103.4; Estimated Glomerular Filt Rate > 60; Glucose Random 149 mg/dL (60-115); Magnesium 2.1 mg/dL (1.6-2.6); Potassium 3.7 mmol/L (3.3-5.1); Sodium 141 mmol/L (135-145); Total Protein 6.7 g/dL (6.5-8.0)
[2024-06-25 19:32] LABS: Troponin-I High Sensitivity 4.2 ng/L (<3.5-35.0)
[2024-06-25 19:44] LABS: Influenza A PCR NEGATIVE (Negative); Influenza B PCR NEGATIVE (Negative); Resp Syncy Virus RNA Qual PCR NEGATIVE (Negative); SARS COV2 PCR INHOUSE NEGATIVE (Negative)
[2024-06-25] MEDS: 0.9 % Sodium Chloride 1,000 ML 999 ML IV (21:08)
[2024-06-25 21:28] LABS: Troponin-I High Sensitivity 6.7 ng/L (<3.5-35.0)
[2024-06-25] MEDS: iohexoL 350 MG/ML 100 ML INFUS..BTL IV (21:56)
[2024-06-25] MEDS: Ketorolac Tromethamine 15 MG/ML VIAL IVPUSH (23:31)
[2024-06-25 23:36] VITALS: BP 154/88; PULSE 84; RESP 16; TEMP 36.7; O2SAT 96
== END 2024-06-25 23:36 | disposition home or self-care (01) ==
PROVIDERS: Physician Assistant Medical; Emergency Provider Emergency Medicine Emergency Medical Services; PCP Physician Assistant
DX: K52.9 Noninfective gastroenteritis and colitis, unspecified (principal); K59.00 Constipation, unspecified; R07.89 Other chest pain; R10.2 Pelvic and perineal pain; R11.0 Nausea; R06.02 Shortness of breath; Z03.818 Encounter for observation for suspected exposure to other biological agents ruled out; Z87.891 Personal history of nicotine dependence; Z79.899 Other long term (current) drug therapy
CPT/HCPCS: 0241U; 36415; 74177; 80053; 83735; 84484; 85025; 85610; 93005; 96361; 96374; 99284; J1885; Q9967

== ENCOUNTER → 2024-06-25 18:33 | Outpatient (BNV) | payer MEDICARE, MEDICAID, SELFPAY | PROVIDERS: Emergency Provider Emergency Medicine Emergency Medical Services; PCP Physician Assistant; Visit Provider Internal Medicine | DX: I44.0 Atrioventricular block, first degree (principal) | CPT/HCPCS: 93010 ==

== ENCOUNTER → 2024-06-25 20:47 | Outpatient (BNV) | payer MEDICARE, MEDICAID, SELFPAY | PROVIDERS: Emergency Provider Emergency Medicine Emergency Medical Services; PCP Physician Assistant; Visit Provider Radiology Diagnostic Radiology | DX: K63.89 Other specified diseases of intestine (principal); K56.41 Fecal impaction | CPT/HCPCS: 74177 ==

== ENCOUNTER 2024-07-05 15:05 | Outpatient (REF) | payer MEDICARE, MEDICAID, SELFPAY ==
[2024-07-05 15:51] LABS: Hematocrit 45.2 % (42.0-52.0); Hemoglobin 15.9 g/dl (14.0-18.0); Mean Corpuscular HGB Conc 35.2 g/dl (31.0-36.0); Mean Corpuscular Hemoglobin 31.8 pg (27.0-33.0); Mean Corpuscular Volume 90.4 fL (80.0-98.0); Mean Platelet Volume 9.3 fL (9.4-12.4); Platelet Count 210 X10*3/uL (160-400); Red Cell Distribution Width 12.6 % (11.0-16.0); White Blood Count 9.8 X10*3/uL (4.8-10.8)
[2024-07-05 15:59] LABS: Appearance Urine Clear; Color Urine Yellow; Glucose Urine UA Negative (Negative); Leukocyte Esterase Urine Negative (Negative); Nitrite Urine Negative (Negative); Specific Gravity - Urine 1.025 (1.005-1.025); Urine Blood Negative (Negative); Urine Ketones Trace mg/dL (Negative); Urine Protein Negative (Neg-Trace)
[2024-07-05 16:03] LABS: Estimated Average Glucose 108 mg/dL; Hemoglobin A1C 146.1437 umol/L; Hemoglobin A1c % 5.4 % (<6.0); Total Hemoglobin (HGBA1C) 4083.3257 umol/L
[2024-07-05 16:13] LABS: Alanine Aminotransferase 56 U/L (0-40); Albumin Level 4.1 g/dL (3.5-5.0); Anion Gap 11 (12-20); Aspartate Amino Transferase 49 U/L (5-37); Bilirubin Total 0.7 mg/dL (0.0-1.0); Blood Urea Nitrogen 18 mg/dL (9-16); Calcium 9.2 mg/dL (8.4-10.2); Carbon Dioxide 24 mmol/L (22-29); Chloride 108 mmol/L (96-108); Estimated Glomerular Filt Rate > 60; Glucose Random 101 mg/dL (60-115); Potassium 4.2 mmol/L (3.3-5.1); Sodium 139 mmol/L (135-145); Total Protein 6.6 g/dL (6.5-8.0)
[2024-07-05 16:17] LABS: Alkaline Phosphatase 60 U/L (39-117)
[2024-07-06 20:54] LABS: Transglutaminase Ab IgG <1.0 U/mL; Transglutaminase IgA <1.0 U/mL
== END 2024-07-05 15:06 | disposition home or self-care (01) ==
LOC: HO.LAB 15:05
PROVIDERS: PCP Physician Assistant; Visit Provider Physician Assistant
DX: I10 Essential (primary) hypertension (principal); R73.09 Other abnormal glucose; R14.0 Abdominal distension (gaseous); R19.7 Diarrhea, unspecified; R39.9 Unspecified symptoms and signs involving the genitourinary system
CPT/HCPCS: 36415; 80053; 81003; 83036; 85027; 86364

== ENCOUNTER 2024-07-07 08:30 | Outpatient (REF) | payer MEDICARE, MEDICAID, SELFPAY ==
[2024-07-07 12:29] LABS: CDiff Gene PCR NEGATIVE (Negative)
[2024-07-07 14:00] LABS: Adenovirus F 40/41 Not Detected (Not Detect.); Astrovirus Not Detected (Not Detect.); Campylobacter Not Detected (Not Detect.); Cryptosporidium Not Detected (Not Detect.); Cyclospora cayetanensis Not Detected (Not Detect.); E. coli EAEC Not Detected (Not Detect.); E. coli EPEC Not Detected (Not Detect.); E. coli ETEC Not Detected (Not Detect.); E. coli STEC Not Detected (Not Detect.); Entamoeba histolytica Not Detected (Not Detect.); Giardia lamblia Not Detected (Not Detect.); Norovirus GI/GII Not Detected (Not Detect.); Plesiomonas shigelloides Not Detected (Not Detect.); Rotavirus A Not Detected (Not Detect.); Salmonella Not Detected (Not Detect.); Sapovirus Not Detected (Not Detect.); Shigella sp./EIEC Not Detected (Not Detect.); Vibrio Not Detected (Not Detect.); Vibrio Cholerae Not Detected (Not Detect.); Yersinia enterocolitica Not Detected (Not Detect.)
== END 2024-07-07 08:31 | disposition home or self-care (01) ==
LOC: HO.LNP 08:30
PROVIDERS: Visit Provider Physician Assistant
DX: R19.7 Diarrhea, unspecified (principal)
CPT/HCPCS: 87493; 87507

== ENCOUNTER 2024-07-15 10:55 | Outpatient (REF) | payer MEDICARE, MEDICAID, SELFPAY ==
[2024-07-15 13:17] LABS: Alanine Aminotransferase 27 U/L (0-40); Albumin Level 4.3 g/dL (3.5-5.0); Alkaline Phosphatase 63 U/L (39-117); Aspartate Amino Transferase 23 U/L (5-37); Bilirubin Direct 0.2 mg/dL (0.0-0.5); Bilirubin Total 0.6 mg/dL (0.0-1.0); Total Protein 6.8 g/dL (6.5-8.0)
== END 2024-07-15 10:56 | disposition home or self-care (01) ==
LOC: HO.LAB 10:55
PROVIDERS: PCP Physician Assistant; Visit Provider Physician Assistant
DX: R74.8 Abnormal levels of other serum enzymes (principal)
CPT/HCPCS: 36415; 80076

== ENCOUNTER 2024-10-05 14:01 | Outpatient (AMB) | payer MEDICARE, MEDICAID, SELFPAY ==
--- NOTE | 2024-10-05 14:10 | MHC.PC.OV ---
Vital Signs 10/05/24 14:11 Height 6 ft Weight 313 lb BMI 42.4 BP 160/86 H Blood Pressure Location Lt brachial Position Sitting Pulse 78 Pulse Source Pulse Oximeter Pulse Oximetry (%) 98 Oxygen Delivery Method Room Air Intake Visit Reasons: f/u HTN Toddler Caregiver Required: No Accompanied by: Self / Same As Patient Allergies hydrochlorothiazide Adverse Reaction (Intermediate, Verified 10/05/24 14:12) Dizziness losartan Adverse Reaction (Intermediate, Verified 10/05/24 14:35) Fatigued Medication List - Last Reconciled 10/05/24 by Paulo Dorado PA-C atorvastatin 10 mg PO DAILY 90 days miscellaneous medical supply (Blood Pressure Cuff) monitor once per day Tobacco use date assessed: 10/05/24 Fall risk assessment: No Falls in past year Last assessed Fall Risk: 10/05/24 Dental Screening Dental Screen Date: 10/05/24 Did you have a dental visit in the last 12 months?: No Did you have a dental problem in the last 6 months where you did not have access to dental care?: No Was dental information given to patient?: No HPI f/u HTN HPI Details Patient is a 69-year-old male here today for a follow-up visit.? Patient has a past medical history significant for cervical spine disease, hypertension, obesity, hyperlipidemia. Arthritis of the left thumb: Has followed up with orthopedic hand surgeon and got a cortisone injection in his hand. He reports it has not taken effect yet though will wait 3 weeks and call orthopedics back for possible repeat injection with x-ray guidance. .. Cervical spine disease:? He is status post cervical spine disc surgery and has been doing fairly well. Still has some numbness sensation in his left hand that may be related to a left elbow issue. We did discuss perhaps getting EMG of the left upper extremity due to the left hand numbness though will like to hold off on this for now. He is concerned about needing another surgical procedure .. Class 3 obesity: Patient does understand his BMI is over 40 and has had difficult time losing weight. He admits to not being as physically active as he once was as he is semi retired at this time. .. Hyperlipidemia:? Patient continues on low-dose statin therapy. Most recent lipid panel showing appropriate total cholesterol and LDL. .. Hypertension:? Pressure today in office remains elevated. He reports he has not been able to tolerate hydrochlorothiazide and losartan due to feeling funny dizzy while taking these medications. He is open to the idea of starting amlodipine for blood pressure control. Advised on monitoring blood pressure at home. . Foul-smelling urine: The patient reports dark urine with a strong odor, despite adequate hydration. He has undergone a urological evaluation, which showed no abnormalities on ultrasound. [facility] Medical History Diverticulosis Cervical radiculopathy at C6 Recurrent UTI Tubular adenoma Hearing loss Elevated cholesterol Surgical History Hx of colonoscopy History of neck surgery History of excision of mass Hx of tonsillectomy History of knee surgery Family History Mother Colon cancer, Onset Age: 60 DMII (diabetes mellitus, type 2) Brother Prostate cancer Brother Melanoma Social History Housing: Apartment Alcohol intake: never Comment: recently developed at home. Patient Tobacco Use Status: Former Tobacco user Years Smoked: 32 e-Cigarette/Vaping Use: Never Used Second Hand Smoke Exposure: No Advance Directives Date on File: 10/21/21 service: No Current occupational status: retired Cognitive needs: No Hearing needs: Yes (hearing aid) Vision needs: Yes (Glasses) Questionnaire PHQ-9 Over the last 2 weeks, how often have you been bothered by any of the following problems? 1. Little interest or pleasure in doing things: not at all 2. Feeling down, depressed, or hopeless: not at all 3. Trouble falling or staying asleep, or sleeping too much: not at all 4. Feeling tired or having little energy: not at all 5. Poor appetite or overeating: not at all 6. Feeling bad about yourself - or that you are a failure or have let yourself or your family down: not at all 7. Trouble concentrating on things, such as reading the newspaper or watching television: not at all 8. Moving or speaking so slowly that other people could have noticed. Or the opposite - being so fidgety or restless that you have been moving around a lot more than usual: not at all 9. Thoughts that you would be better off or of hurting yourself in some way: not at all Total score: 0 95513 - PHQ-9 Billing: Yes Source: Developed by Drs. Nguyễn Kay, Jaya Kearney and colleagues, with an educational marcia from [employer]. Thrive Questionnaire Date Thrive assessed: 10/05/24 I am a: Patient What is your living situation today?: I have a steady place to live Within the past 12 months, did the food you bought not last and you didn't have the money to get more?: Never true Within the past 12 months, did you worry whether your food would run out before you got money to buy more?: Never true Do you have trouble paying for medicines?: No Do you have trouble getting transportation to medical appointments?: No Do you have trouble paying your heating and electricity bill?: No Do you have trouble taking care of your child, family member or friend?: No Do you have trouble with day-to-day activities such as bathing, preparing meals, shopping, managing finances, etc.?: No Are you currently unemployed and looking for a job?: No Are you interested in more education?: No Please select the resources that you would like help with: None THRIVE Score: 0 AUDIT C Alcohol Use Questionnaire (AUDIT-C) 1. How often do you have a drink containing alcohol?: Never Total Score: 0 YULIANA-7 AMB Questionnaire YULIANA-7 Date YULIANA - 7 assessed: 10/05/24 Feeling nervous, anxious, or on edge: 0 = Not at all Not being able to stop or control worryin = Not at all Worrying too much about different things: 0 = Not at all Trouble relaxin = Not at all Being so restless that it is hard to sit still: 0 = Not at all Becoming easily annoyed or irritable: 0 = Not at all Feeling afraid as if something awful might happen: 0 = Not at all Total YULIANA-7 score (0-4 normal; 5-9 mild; 10-14 moderate; 15-21 severe): 0 Source: Developed by Aparna Chamberlain Kurt Kroenke and colleagues, with an educational marcia from [employer]. YULIANA-7 Assessment Billing YULIANA-7 Assessment Tool: YULIANA-7 Assessment 57811 Review of Systems Const Denies headache(s) Eyes Denies loss of vision ENT Denies vertigo, Denies dizziness, Denies headache(s) and Denies sore throat Card Denies chest pain, Denies leg edema and Denies lightheadedness Resp Denies cough, Denies hemoptysis and Denies wheezing GI Denies abdominal pain, Denies melena, Denies constipation, Denies diarrhea and Denies vomiting Denies dysuria, Denies urinary frequency and Denies urinary urgency Musc Denies arthralgias, Denies joint swelling, Denies numbness and Denies tingling Neuro Denies Abnormal speech present, Denies behavioral changes, Denies vertigo, Denies dizziness, Denies headache(s), Denies loss of vision, Denies memory loss, Denies numbness and Denies tingling Psych Denies anxiety, Denies behavioral changes, Denies depression, Denies memory loss and Denies panic attacks Edi/Lymph Denies easy bleeding and Denies easy bruising Aller/Immun Denies wheezing Physical exam (Primary Care) Vital Signs: Last Vital Signs Pulse 78 10/05/24 14:11 BP 160/86 H 10/05/24 14:11 Pulse Ox 98 10/05/24 14:11 Oxygen Delivery Method Room Air 10/05/24 14:11 Care Plan Goal for BP management: Will start amlodipine 5 mg for better blood pressure control Next steps: Advised on monitoring blood pressure at home with goal blood pressure to be below 140/90 BMI result Body Mass Index 42.4 BMI Assessment/Plan discussion: High BMI High, discussed plan: lifestyle, weight reduction, dietary and physical activity Tobacco/Smoking Status: Tobacco use Status Tobacco use date assessed 10/05/24 10/05/24 14:15 Patient Tobacco Use Status Former Tobacco user 10/05/24 14:15 e-Cigarette/Vaping Use Never Used 10/05/24 14:15 PHQ-9: PHQ-9 Score PHQ-9: Total score 0 10/05/24 14:31 Thrive Assessment: Date of Thrive Assessment Date Thrive assessed 10/05/24 10/05/24 14:15 Const General: healthy appearing, no acute distress, alert and awake Nutritional Appearance: well nourished Orientation/consciousness: oriented to person, oriented to place and oriented to time HENMT Ears: TM's normal bilaterally General nose exam: Normal nasal mucous membranes and turbinates present Eyes Conjunctivae: conjunctivae normal Sclerae: sclerae normal Pupils: Equal, round and reactive pupils present Neck Neck: Yes no lymphadenopathy and Yes no JVD Thyroid: Thyroid normal Carotids: no bruits Resp Effort & Inspection: normal respiratory effort and not tachypneic Auscultation: no crackles, no rales, no rhonchi and no wheezes Cardio Rate: regular rate Rhythm: regular rhythm Heart sounds: no murmurs and normal S1 and S2 GI Palpation (GI): Soft to palpation, nontender, no hepatomegaly and no splenomegaly Auscultation: normal bowel sounds Skin General skin exam: no rashes or lesions noted and dry skin Neuro General: oriented to person, oriented to place and oriented to time Cranial nerves: Yes Equal, round and reactive pupils present Speech: No Abnormal speech present Gait exam (Neuro): Normal gait present Motor exam (neuro): no tremor noted Extrem Right upper extremity: full ROM Left upper extremity: full ROM Right lower extremity: full ROM; no edema Left lower extremity: full ROM; no edema Psych Mental Status: mental status grossly normal Speech and movement: Normal speech and movement present Affect: normal affect Attitude: cooperative Thought process: Normal thought process present Coding Level of Care Code Est Pt Level 4 (11246) Diagnoses Primary hypertension I10 Hypertension type: primary hypertension Mixed hyperlipidemia E78.2 Hyperlipidemia type: mixed hyperlipidemia Class 3 obesity E66.813 Foul smelling urine R82.90 Left hand paresthesia R20.2 Left lateral epicondylitis M77.12 Additional Codes YULIANA-7 Assessment Billing - YULIANA-7 Assessment Tool: YULIANA-7 Assessment 71452 ([id number]) PHQ-9 - 98960 - PHQ-9 Billing: Yes ([id number]) Assessment & Plan Assessment & Plan (1) HTN (hypertension): Code(s): I10 - Essential (primary) hypertension Category: Medical Qualifiers: Hypertension type: primary hypertension Qualified Code(s): I10 - Essential (primary) hypertension Plan: Patient's blood pressure slightly elevated today in office. He reports hydrochlorothiazide was causing him side effects. Will start amlodipine 5 mg for better blood pressure control. He promises to be more consistent with the use of his blood pressure medication then start monitoring blood pressure at home. Goal blood pressure to be below 140/90 (2) HLD (hyperlipidemia): Code(s): E78.5 - Hyperlipidemia, unspecified Category: Medical Qualifiers: Hyperlipidemia type: mixed hyperlipidemia Qualified Code(s): E78.2 - Mixed hyperlipidemia Plan: Patient's most recent lipid panel showing much improved total cholesterol and LDL. He will continue on atorvastatin 10 mg with goal LDL to remain below 130 (3) Class 3 obesity: Code(s): E66.813 - Obesity, class 3 Category: Medical Plan: Patient does understand his BMI is over 40 and will work on trying to be more physically active and adapting to better eating habits to reduce his weight (4) Foul smelling urine: Code(s): R82.90 - Unspecified abnormal findings in urine Category: Medical Plan: A urinalysis and urine cytology will be conducted to investigate the cause of dark urine. (5) Left hand paresthesia: Code(s): R20.2 - Paresthesia of skin Category: Medical Plan: Discuss with patient being referred for a nerve conduction study to assess the severity of ? cubital tunnel syndrome. A he would like to hold off for now as he is concerned about getting up surgical procedure (6) Left lateral epicondylitis: Code(s): M77.12 - Lateral epicondylitis, left elbow Category: Medical Plan: Has seen Orthopedics over the last year, some of his symptoms do sound like a lateral epicondylitis. Patient will monitor symptoms Orders: Orders Testosterone, Free/Total 10/05/24 E66.813 - Obesity, class 3 TSH reflex Free T4 10/05/24 E66.813 - Obesity, class 3 Hemoglobin A1c 10/05/24 R73.09 - Other abnormal glucose Complete Blood Count no Diff 10/05/24 E78.2 - Mixed hyperlipidemia Comprehensive Orange. Panel Fast 10/05/24 E78.2 - Mixed hyperlipidemia Lipid Panel 10/05/24 E78.2 - Mixed hyperlipidemia UA CC w/rflx Micro + Cult 10/05/24 R30.0 - Dysuria, R82.90 - Unspecified abnormal findings in urine Urine Cytology 10/05/24 R82.90 - Unspecified abnormal findings in urine Medications: New amlodipine 5 mg PO DAILY 30 tabs 1RF 30 days I10 - Essential (primary) hypertension
[2024-10-05 14:11] VITALS: BP 160/86; PULSE 78; O2SAT 98; BMI 42.4
== END 2024-10-05 14:55 | disposition home or self-care (01) ==
LOC: HO.HMCH 14:02
PROVIDERS: PCP Physician Assistant; Visit Provider Physician Assistant
DX: I10 Essential (primary) hypertension (principal); E78.2 Mixed hyperlipidemia; E66.813 Obesity, class 3; Z68.41 Body mass index [BMI] 40.0-44.9, adult; R82.90 Unspecified abnormal findings in urine; R20.2 Paresthesia of skin; M77.12 Lateral epicondylitis, left elbow

== ENCOUNTER → 2024-10-05 14:01 | Outpatient (BNVA) | payer MEDICARE, MEDICAID, SELFPAY | PROVIDERS: PCP Physician Assistant; Visit Provider Physician Assistant | DX: I10 Essential (primary) hypertension (principal); E78.2 Mixed hyperlipidemia; R82.90 Unspecified abnormal findings in urine; R20.2 Paresthesia of skin; M77.12 Lateral epicondylitis, left elbow; E66.813 Obesity, class 3; Z68.41 Body mass index [BMI] 40.0-44.9, adult; Z71.3 Dietary counseling and surveillance; Z87.891 Personal history of nicotine dependence; Z13.31 Encounter for screening for depression; Z13.30 Encounter for screening examination for mental health and behavioral disorders, unspecified | CPT/HCPCS: 96127; 99212 ==

== ENCOUNTER 2024-11-21 16:28 | Outpatient (REF) | payer MEDICARE, MEDICAID, SELFPAY ==
[2024-11-21 18:10] LABS: Appearance Urine Clear; Glucose Urine UA Negative (Negative); PH 5.0 (5.0-9.0); Specific Gravity - Urine 1.020 (1.005-1.025); UMIC TRIGGER UACC YES
== END 2024-11-21 16:29 | disposition home or self-care (01) ==
LOC: HO.LAB 16:28
PROVIDERS: PCP Physician Assistant; Visit Provider Nurse Practitioner Family
DX: R82.90 Unspecified abnormal findings in urine (principal); R30.0 Dysuria; R35.0 Frequency of micturition; R39.89 Other symptoms and signs involving the genitourinary system
CPT/HCPCS: 81001

== ENCOUNTER 2024-12-14 08:47 | Outpatient (REF) | payer MEDICARE, MEDICAID, SELFPAY ==
[2024-12-14 09:22] LABS: Hematocrit 46.1 % (42.0-52.0); Hemoglobin 15.6 g/dl (14.0-18.0); Mean Corpuscular HGB Conc 33.8 g/dl (31.0-36.0); Mean Corpuscular Hemoglobin 30.7 pg (27.0-33.0); Mean Corpuscular Volume 90.7 fL (80.0-98.0); NRBC Abs Auto 0.000 X10*3/uL (0.0-0.012); NRBC Pct Auto 0.0 /100WBC (0.0-0.2); Platelet Count 203 X10*3/uL (160-400); Red Blood Count 5.08 X10*6/uL (4.60-5.80); White Blood Count 7.7 X10*3/uL (4.8-10.8)
[2024-12-14 09:29] LABS: Appearance Urine Clear; Glucose Urine UA Negative (Negative); PH 5.5 (5.0-9.0); Specific Gravity - Urine 1.020 (1.005-1.025)
[2024-12-14 09:54] LABS: Alanine Aminotransferase 28 U/L (0-40); Albumin Level 4.4 g/dL (3.5-5.0); Alkaline Phosphatase 75 U/L (39-117); Anion Gap 10 (12-20); Aspartate Amino Transferase 22 U/L (5-37); Blood Urea Nitrogen 16 mg/dL (9-16); Calcium 9.0 mg/dL (8.4-10.2); Carbon Dioxide 28 mmol/L (22-29); Chloride 107 mmol/L (96-108); Cholesterol 200 mg/dL (<200); Estimated Glomerular Filt Rate > 60; HDL Cholesterol 43 mg/dL (>40); Potassium 4.2 mmol/L (3.3-5.1); Sodium 141 mmol/L (135-145); Total Protein 7.0 g/dL (6.5-8.0); Triglycerides 101 mg/dL (<150)
[2024-12-18 16:42] LABS: Testosterone, Free 43.4 pg/mL (30.0-135.0)
== END 2024-12-14 08:48 | disposition home or self-care (01) ==
LOC: HO.LAB 08:47
PROVIDERS: PCP Physician Assistant; Visit Provider Physician Assistant
DX: E78.2 Mixed hyperlipidemia (principal); E66.813 Obesity, class 3; R30.0 Dysuria; R73.09 Other abnormal glucose; R82.90 Unspecified abnormal findings in urine
CPT/HCPCS: 36415; 80053; 80061; 81003; 83036; 84402; 84403; 84443; 85027; 88112

== ENCOUNTER 2024-12-19 08:30 | Outpatient (REF) | payer MEDICARE, MEDICAID, SELFPAY ==
[2024-12-19 09:58] LABS: Prostate Specific Antigen 1.07 ng/mL (<0.05-4.0)
== END 2024-12-19 08:31 | disposition home or self-care (01) ==
LOC: HO.LAB 08:30
PROVIDERS: PCP Physician Assistant; Visit Provider Nurse Practitioner Family
DX: Z12.5 Encounter for screening for malignant neoplasm of prostate (principal)
CPT/HCPCS: 36415; 84153

== ENCOUNTER 2024-12-29 08:17 | Outpatient (AMB) | payer MEDICARE, SELFPAY ==
--- NOTE | 2024-12-29 08:21 | A.OFFVIS_ITS ---
Intake Visit Reasons: 1y/PSA/PVR Intake Note: Patient is present for 1Y/PSA/PVR Urology Medication:NONE Antibiotic Allergy:NONE Blood Thinner:NONE Last PVR:40ML'S Todays PVR:0ML'S Bottle Filler Required: No Allergies hydrochlorothiazide Adverse Reaction (Intermediate, Verified 12/29/24 09:05) Dizziness losartan Adverse Reaction (Intermediate, Verified 12/29/24 09:05) Fatigued meloxicam Adverse Reaction (Mild, Verified 12/29/24 09:05) overheating Medication List - Last Reconciled 12/29/24 by MEG Valle- amlodipine 5 mg PO DAILY 30 days atorvastatin 10 mg PO DAILY 90 days miscellaneous medical supply (Blood Pressure Cuff) monitor once per day tadalafil (Cialis) 5 mg PO DAILY 90 days HPI Comments Details: Romie is a pleasant 69-year-old male patient of Dr. Dorado. He has a past medical history of tubular adenoma, hearing loss, hypercholesteremia and lipoma of forehead. He presents to the office today for a follow-up. In discussion with the patient today he reports over the last 6-8 weeks he has been having ongoing issues with low-back pain, constipation, nocturia, and dysuria. He discusses at length his longstanding history of constipation over the last 3 years. Initially he reported no issues with constipation however in discussion with the patient today he reports utilizing enemas typically weekly in order to initiate bowel movement. We did discussed correlation of constipation with lower urinary tract symptoms. He had called the office approximately 1 month ago at which time he was treated for presumed prostatitis given patient's lower urinary tract symptoms. In discussion with the patient today he reports no improvement in dysuria and nocturia. In office urinalysis results reviewed with the patient today negative leukocytes negative nitrates negative microscopic hematuria. LARA was offered however deferred. We did discussed potential causes of these lower urinary tract symptoms and further treatment options. He also discusses having recently followed up with his PCP and has started a new diet due to elevated lipid levels. PVR today 0 mL. He denies incontinence, hematuria, foul smelling urine, changes to urinary stream, flank pain, fever, and or chills. No CVA tenderness noted on exam today. In review of patient's chart it appears a CT of the abdomen and pelvis was performed earlier this year that noted no hydronephrosis or hydroureter. Pelvic contents are unremarkable. No focal bladder wall thickening. Most recent urological labs were reviewed with the patient today as noted and trended below: PSA: 07/08 3.4, 12/08 1.6, 06/09 1.3, 01/10 1.1 Testosterone: 12/10 342 When asked he denies any signs or symptoms of sleep apnea. We did discuss performing LARA and sending for microgen however he declines at this time. We also discussed in office cystoscopy for further assessment evaluation. All questions were answered. He otherwise offers no other issues or concerns at this time. [facility] Medical History Diverticulosis Cervical radiculopathy at C6 Recurrent UTI Tubular adenoma Hearing loss Elevated cholesterol Surgical History Hx of colonoscopy History of neck surgery History of excision of mass Hx of tonsillectomy History of knee surgery Family History Mother Colon cancer, Onset Age: 60 DMII (diabetes mellitus, type 2) Brother Prostate cancer Brother Melanoma Social History Housing: Apartment Alcohol intake: never Comment: recently developed at home. Patient Tobacco Use Status: Former Tobacco user Years Smoked: 32 e-Cigarette/Vaping Use: Never Used Second Hand Smoke Exposure: No Advance Directives Date on File: 10/21/21 service: No Current occupational status: retired Cognitive needs: No Hearing needs: Yes (hearing aid) Vision needs: Yes (Glasses) Review of Systems Const All systems reviewed & are unremarkable except as noted in HPI and below Physical Exam Const General: cooperative, healthy appearing, comfortable, no acute distress, well developed, alert and awake Nutritional Appearance: overweight Orientation/consciousness: patient oriented x3 Limitations: no limitations HEENT Head: Yes normal to inspection, Yes normocephalic and Yes atraumatic Ears: hearing grossly normal bilaterally Eyes General: appearance normal, both eyes and all related structures Neck Neck: Yes normal visual inspection and Yes trachea midline Chest Chest palpation & inspection: normal inspection of the chest Resp Effort & Inspection: normal respiratory effort and able to speak in complete sentences Cardio Rate: regular rate GI Inspection: Yes normal to inspection General: Yes no CVA tenderness Back/Spine/Pelvis Back: no CVA tenderness Skin General skin exam: no rashes or lesions noted Neuro General: patient oriented x3 Extrem General: Yes normal to inspection Psych Appearance: grossly normal and well kempt Mental Status: mental status grossly normal Speech and movement: Normal speech and movement present and Clear speech present Affect: normal affect Attitude: cooperative Thought process: Normal thought process present Thought content: Normal thought content present Insight: Fair insight present (Psych) Judgement: Fair judgement present (Psych) Office Procedures Post Void Residual Post Residual Void Post Void Residual (PVR): 0 93105-Digm Void Residual by ultrasound Results AMB Urinalysis, Automated UA Leukoctes 0 Natan/uL Last Edit by Leigh Ann Sweeney CCM on 12/29/24 09:09 UA Nitrite Negative Last Edit by Leigh Ann Sweeney [facility] on 12/29/24 09:09 UA Urobilinogen 0.2 mg/dL Last Edit by Leigh Ann Sweeney CCM on 12/29/24 09:0 9 UA Protein 0 mg/dL Last Edit by Leigh Ann Sweeney [facility] on 12/29/24 09:09 UA pH 6.0 Last Edit by Leigh Ann Sweeney [facility] on 12/29/24 09:09 UA Blood 0 Arie/uL Last Edit by Leigh Ann Sweeney [facility] on 12/29/24 09:09 UA Specific Olin 1.020 Last Edit by Leigh Ann Sweeney CCM on 12/29/24 09: 09 UA Ketone Negative Last Edit by Leigh Ann Sweeney [facility] on 12/29/24 09:09 UA Bilirubin 0 mg/dL Last Edit by Leigh Ann Sweeney [facility] on 12/29/24 09:09 UA Glucose 0 mg/dL Last Edit by Leigh Ann Sweeney [facility] on 12/29/24 09:09 Assessment & Plan Assessment & Plan (1) Dysuria: Code(s): R30.0 - Dysuria Category: Medical (2) Urinary frequency: Code(s): R35.0 - Frequency of micturition Category: Medical (3) Nocturia: Code(s): R35.1 - Nocturia Category: Medical (4) Sensation of pressure in bladder area: Code(s): R39.89 - Other symptoms and signs involving the genitourinary system Category: Medical Plan In office urinalysis results reviewed with the patient today; as noted above. PVR 0 mL Most recent PSA results reviewed with the patient today; as noted above. Most recent CT of the abdomen and pelvis results reviewed with the patient today; as noted above. We did discussed potential causes of patient's lower urinary tract symptoms as well as further treatment options and risks and benefits of these treatment options. LARA was offered however deferred. Start low-dose Cialis as discussed and prescribed for potential bladder stability. We did discussed worsening symptoms. We did discussed chronic prostatitis verses acute prostatitis. We discussed performing prostate massage as well as in office cystoscopy for further assessment evaluation. All questions were answered. Follow-up in 3 months with PVR; or sooner with any issues, concerns, and or questions. Orders: Orders Prostate Specific Antigen 12/19/24 Z12.5 - Encounter for screening for malignant neoplasm of prostate AMB Urinalysis Automated Today Z13.9 - Encounter for screening, unspecified Medications: New tadalafil (Cialis) [id number] [facility] [id number] Member [id number] 5 mg PO DAILY 90 tabs 1RF 90 days Discontinued sulfamethoxazole-trimethoprim 800-160 mg (Bactrim DS) Discontinued Reason: Patient Completed Course 1 tab PO BID 14 days 28 tabs 0RF Patient Instructions: The patient had an opportunity to ask questions regarding the treatment plan. All questions were answered. Physical exam, labs, and imaging were discussed and reviewed in detail. As well as risks, benefits, and discussion of treatment choices. No major barriers to understanding were identified. The patient expressed understanding and agreement with the above treatment plan. The patient was made aware they should contact our office by phone for worsening of their current condition, the appearance of new symptoms, or with any questions or concerns. Compliance is encouraged with any medications and follow up testing that is ordered. It is a privilege to be allowed the opportunity to participate in? your urological care.? Again, if you have any questions or concerns If you have any questions or concerns please do not hesitate to contact me. The office is [phone]. This note is constructed using voice recognition software. While every effort has been made to ensure accuracy scalp treatment specialist errors may have been included. Yours sincerely, MEG Valle-LUBNA Coding Level of Care Code Est Pt Level 4 (84281) Complex EM visit Add On G2211 Diagnoses Dysuria R30.0 Urinary frequency R35.0 Nocturia R35.1 Sensation of pressure in bladder area R39.89 CPT Codes Post Residual Void - PVR CPT Code: 37101-Bxhp Void Residual by ultrasound ([id number])
== END 2024-12-29 09:04 | disposition home or self-care (01) ==
LOC: HO.HUSH 08:19
PROVIDERS: PCP Physician Assistant; Visit Provider Nurse Practitioner Family
DX: R30.0 Dysuria (principal); R35.0 Frequency of micturition; R35.1 Nocturia; R39.89 Other symptoms and signs involving the genitourinary system; Z13.9 Encounter for screening, unspecified
CPT/HCPCS: 99214; G2211

== ENCOUNTER → 2024-12-29 08:17 | Outpatient (BNVA) | payer MEDICARE, SELFPAY | PROVIDERS: PCP Physician Assistant; Visit Provider Nurse Practitioner Family | DX: R30.0 Dysuria (principal); R35.0 Frequency of micturition; R35.1 Nocturia; R97.20 Elevated prostate specific antigen [PSA]; R39.89 Other symptoms and signs involving the genitourinary system; K59.09 Other constipation; Z87.891 Personal history of nicotine dependence | CPT/HCPCS: 51798; 81003; 99212 ==

== ENCOUNTER 2025-01-16 14:15 | Outpatient (AMB) | payer MEDICARE, MEDICAID, SELFPAY ==
--- NOTE | 2025-01-16 14:17 | A.OFFPC_ITS ---
Vital Signs 01/16/25 14:18 Height 6 ft Weight 315 lb 8 oz BMI 42.8 BP 140/88 H Blood Pressure Location Lt brachial Position Sitting Pulse 71 Pulse Source Pulse Oximeter Temp 97.3 F Temp Source Temporal Artery Scan Pulse Oximetry (%) 98 Oxygen Delivery Method Room Air Intake Visit Reasons: follow up HTN Intake Note: Patient is here to follow up on HTN. Customer Accounts Advisor Required: No Network Services Project Manager: Not Required per policy Accompanied by: Self / Same As Patient Allergies hydrochlorothiazide Adverse Reaction (Intermediate, Verified 01/16/25 14:45) Dizziness losartan Adverse Reaction (Intermediate, Verified 01/16/25 14:45) Fatigued meloxicam Adverse Reaction (Mild, Verified 01/16/25 14:45) overheating Medication List - Last Reconciled 01/16/25 by Paulo Dorado PA-C amlodipine 5 mg PO DAILY 30 days atorvastatin 10 mg PO DAILY 90 days miscellaneous medical supply (Blood Pressure Cuff) monitor once per day tadalafil (Cialis) 5 mg PO DAILY 90 days Tobacco use date assessed: 01/16/25 Fall risk assessment: No Falls in past year Last assessed Fall Risk: 01/16/25 Dental Screening Dental Screen Date: 10/05/24 HPI follow up HTN HPI Details Patient is a 69-year-old male here today for a follow-up visit.? Patient has a past medical history significant for cervical spine disease, hypertension, obesity, hyperlipidemia. Chronic obstipation: The patient has a two-year history of difficulty with defecation, stating an inability to have a bowel movement without assistance, which occurs about once or twice a week. The patient describes the stool as soft and flat, like a ribbon, but requires significant straining and manual pressure on the abdomen to pass it. The patient uses small enemas, stool softeners, and MiraLax to facilitate bowel movements. -This condition is associated with const ant lower abdominal and lower back pain, which the patient finds frightening. Prior workup includes two colonoscopies, where polyps were removed, along with CT scans, MRIs, and ultrasounds. A CT scan from the spring of this year noted moderate stool burden in the distal sigmoid colon and suggested possible mild colitis. .. ? Prostatitis: The patient also reports significant nocturia, waking up at 1:30 a.m. and urinating small amounts frequently for the rest of the night, which severely impacts sleep. The patient's PSA level is 1.0, and a urologist had previously prescribed tadalafil for these symptoms, which the patient discontinued due to side effects. The patient also had a severe reaction, including a hot, painful head, to a prior course of prednisone, levofloxacin, and metronidazole prescribed for a presumed prostate infection. .. Cervical spine disease:? He is status post cervical spine disc surgery and has been doing fairly well. Still has some numbness sensation in his left hand that may be related to a left elbow issue. We did discuss perhaps getting EMG of the left upper extremity due to the left hand numbness though will like to hold off on this for now. He is concerned about needing another surgical procedure .. Class 3 obesity: Patient does understand his BMI is over 40 and has had difficult time losing weight. He admits to not being as physically active as he once was as he is semi retired at this time. .. Hyperlipidemia:? Patient continues on low-dose statin therapy. Most recent lipid panel showing appropriate total cholesterol and LDL. .. Hypertension:? Pressure today in office remains elevated. He reports he has not been able to tolerate hydrochlorothiazide and losartan due to feeling funny dizzy while taking these medications. He continues on 5 mg amlodipine which he feels he is doing well with. . PENDING SALE TO [facility] Medical History Diverticulosis Cervical radiculopathy at C6 Recurrent UTI Tubular adenoma Hearing loss Elevated cholesterol Surgical History Hx of colonoscopy History of neck surgery History of excision of mass Hx of tonsillectomy History of knee surgery Family History Mother Colon cancer, Onset Age: 60 DMII (diabetes mellitus, type 2) Brother Prostate cancer Brother Melanoma Social History Housing: Apartment Alcohol intake: never Comment: recently developed at home. Patient Tobacco Use Status: Former Tobacco user Years Smoked: 32 e-Cigarette/Vaping Use: Never Used Second Hand Smoke Exposure: Yes Advance Directives Date on File: 10/21/21 service: No Current occupational status: retired Cognitive needs: No Hearing needs: Yes (hearing aid) Vision needs: Yes (Glasses) Questionnaire Thrive Questionnaire Date Thrive assessed: 09/28/24 I am a: Patient What is your living situation today?: I have a steady place to live Within the past 12 months, did the food you bought not last and you didn't have the money to get more?: Never true Within the past 12 months, did you worry whether your food would run out before you got money to buy more?: Never true Do you have trouble paying for medicines?: No Do you have trouble getting transportation to medical appointments?: No Do you have trouble paying your heating and electricity bill?: No Do you have trouble taking care of your child, family member or friend?: No Do you have trouble with day-to-day activities such as bathing, preparing meals, shopping, managing finances, etc.?: No Are you currently unemployed and looking for a job?: No Are you interested in more education?: No Please select the resources that you would like help with: None Currently or been in a relationship where the following occur: I choose not to answer THRIVE Score: 0 YULIANA-7 AMB Questionnaire YULIANA-7 Date YULIANA - 7 assessed: 10/05/24 Source: Developed by Drs. Nguyễn Kay, Aparna Young, Jaya Bettencourt and colleagues, with an educational marcia from [employer]. Review of Systems Const Denies headache(s) Eyes Denies loss of vision ENT Denies vertigo, Denies dizziness, Denies headache(s) and Denies sore throat Card Denies chest pain, Denies leg edema and Denies lightheadedness Resp Denies cough, Denies hemoptysis and Denies wheezing GI Reports abdominal pain, Denies melena, Reports constipation, Denies diarrhea and Denies vomiting Denies dysuria, Denies urinary frequency and Denies urinary urgency Musc Reports back pain, Denies arthralgias, Denies joint swelling, Denies numbness and Denies tingling Neuro Denies Abnormal speech present, Denies behavioral changes, Denies vertigo, Denies dizziness, Denies headache(s), Denies loss of vision, Denies memory loss, Denies numbness and Denies tingling Psych Denies anxiety, Denies behavioral changes, Denies depression, Denies memory loss and Denies panic attacks Edi/Lymph Denies easy bleeding and Denies easy bruising Aller/Immun Denies wheezing Physical exam (Primary Care) Vital Signs: Last Vital Signs Temp 97.3 F 01/16/25 14:18 Pulse 71 01/16/25 14:18 BP 140/88 H 01/16/25 14:18 Pulse Ox 98 01/16/25 14:18 Oxygen Delivery Method Room Air 01/16/25 14:18 BMI result Body Mass Index 42.8 Tobacco/Smoking Status: Tobacco use Status Tobacco use date assessed 01/16/25 01/16/25 14:23 Patient Tobacco Use Status Former Tobacco user 01/16/25 14:23 e-Cigarette/Vaping Use Never Used 01/16/25 14:23 Thrive Assessment: Date of Thrive Assessment Date Thrive assessed 09/28/24 01/16/25 14:23 Currently or been in a relationship where the following occur: I choose not to answer Const General: healthy appearing, no acute distress, alert and awake Nutritional Appearance: well nourished Orientation/consciousness: oriented to person, oriented to place and oriented to time HENMT Ears: TM's normal bilaterally General nose exam: Normal nasal mucous membranes and turbinates present Eyes Conjunctivae: conjunctivae normal Sclerae: sclerae normal Pupils: Equal, round and reactive pupils present Neck Neck: Yes no lymphadenopathy and Yes no JVD Thyroid: Thyroid normal Carotids: no bruits Resp Effort & Inspection: normal respiratory effort and not tachypneic Auscultation: no crackles, no rales, no rhonchi and no wheezes Cardio Rate: regular rate Rhythm: regular rhythm Heart sounds: no murmurs and normal S1 and S2 GI Palpation (GI): Soft to palpation, nontender, no hepatomegaly and no splenomegaly Auscultation: normal bowel sounds Skin General skin exam: no rashes or lesions noted and dry skin Neuro General: oriented to person, oriented to place and oriented to time Cranial nerves: Yes Equal, round and reactive pupils present Speech: No Abnormal speech present Gait exam (Neuro): Normal gait present Motor exam (neuro): no tremor noted Extrem Right upper extremity: full ROM Left upper extremity: full ROM Right lower extremity: full ROM; no edema Left lower extremity: full ROM; no edema Psych Mental Status: mental status grossly normal Speech and movement: Normal speech and movement present Affect: normal affect Attitude: cooperative Thought process: Normal thought process present Coding Level of Care Code Est Pt Level 4 (75634) Diagnoses Obstipation K59.00 Primary hypertension I10 Hypertension type: primary hypertension Mixed hyperlipidemia E78.2 Hyperlipidemia type: mixed hyperlipidemia Class 3 obesity E66.813 Lumbar radiculopathy M54.16 Assessment & Plan Assessment & Plan (1) Obstipation: Code(s): K59.00 - Constipation, unspecified Category: Medical Plan: For the patient's primary complaint of chronic difficult defecation with flat stools and associated pain, a referral will be made to a rectal surgeon, Dr. Lerma, for further evaluation. This is to investigate a possible structural or obstructive cause, and the evaluation may include a sigmoidoscopy. A two-week trial of metoclopramide (Reglan) will be prescribed, to be taken three times daily before meals, to stimulate bowel motility. Also noted patient does have degenerative spinal disease that could be associ ated with rectal denervation. Will try to get MRI of lumbar spine as he has chronic low back pain and difficulty with evacuating stool. (2) HTN (hypertension): Code(s): I10 - Essential (primary) hypertension Category: Medical Qualifiers: Hypertension type: primary hypertension Qualified Code(s): I10 - Essential (primary) hypertension Plan: Patient's blood pressure slightly elevated today in office. Patient has not been able to tolerate hydrochlorothiazide due to dizziness. He continues on amlodipine 5 mg without side effect. Will consider increasing amlodipine to 10 mg He promises to be more consistent with the use of his blood pressure medication then start monitoring blood pressure at home. Goal blood pressure to be below 140/90 (3) HLD (hyperlipidemia): Code(s): E78.5 - Hyperlipidemia, unspecified Category: Medical Qualifiers: Hyperlipidemia type: mixed hyperlipidemia Qualified Code(s): E78.2 - Mixed hyperlipidemia Plan: Patient's most recent lipid panel showing much improved total cholesterol and LDL. He will continue on atorvastatin 10 mg with goal LDL to remain below 130 (4) Class 3 obesity: Code(s): E66.813 - Obesity, class 3 Category: Medical Plan: Patient does understand his BMI is over 40 and will work on trying to be more physically active and adapting to better eating habits to reduce his weight (5) Lumbar radiculopathy: Code(s): M54.16 - Radiculopathy, lumbar region Category: Medical Plan: As above patient continues with difficulty with evacuating stool without use of enema or laxatives. He does have chronic low back pain and a history of severe cervical disc disease. Will try for MRI of lumbar spine to eval for severe disc degeneration and lumbar spine that could be causing nerve issue innervating his rectal area. Orders: Orders MR lumbar spine wo con 01/16/25 M54.16 - Radiculopathy, lumbar region Referrals General Surgery Referral K59.00 - Constipation, unspecified Medications: New metoclopramide HCl (Reglan) 10 mg PO Q8H 45 tabs 0RF 15 days K59.00 - Constipation, unspecified
[2025-01-16 14:18] VITALS: BP 140/88; PULSE 71; TEMP 36.3; O2SAT 98; BMI 42.8
== END 2025-01-16 15:28 | disposition home or self-care (01) ==
LOC: HO.HMCH 14:16
PROVIDERS: PCP Physician Assistant; Visit Provider Physician Assistant
DX: K59.00 Constipation, unspecified (principal); E66.813 Obesity, class 3; Z68.41 Body mass index [BMI] 40.0-44.9, adult; I10 Essential (primary) hypertension; E78.2 Mixed hyperlipidemia; M54.16 Radiculopathy, lumbar region

== ENCOUNTER → 2025-01-16 14:15 | Outpatient (BNVA) | payer MEDICARE, SELFPAY | PROVIDERS: PCP Physician Assistant; Visit Provider Physician Assistant | DX: I10 Essential (primary) hypertension (principal); K59.00 Constipation, unspecified; E78.2 Mixed hyperlipidemia; E66.813 Obesity, class 3; Z68.41 Body mass index [BMI] 40.0-44.9, adult; M54.16 Radiculopathy, lumbar region; Z71.3 Dietary counseling and surveillance | CPT/HCPCS: 99212 ==